=== PATIENT | female | born 1995 | race Caucasian/White ===

== ENCOUNTER 2024-11-06 12:34 | Emergency (ER) | payer SELFPAY ==
[2024-11-06 12:39] VITALS: BP 141/85; PULSE 90; TEMP 37.1; O2SAT 97; BMI 63.5
--- NOTE | 2024-11-06 14:00 | ED.GENADUL1 ---
HPI HPI - General Adult General Chief complaint: Upper Respiratory Infection Stated complaint: COUGH Time Seen by Provider: 11/06/24 12:56 Source: patient Mode of arrival: walk-in Limitations: no limitations History of Present Illness HPI narrative: cc = cough, chest congestion and ear pain About 4 days ago, the patient started to experience some nasal congestion, runny nose and cough. Over the last 12 hours she has developed bilateral ear pain with the left greater than the right as well as some chest congestion and wheezing. No history of asthma. She is a diabetic. No GI or symptoms. No fever. Related Data Previous Rx's ?Medication ?Instructions ?Recorded albuterol sulfate 90 mcg/actuation 2 inh inhalation Q6H PRN shortness 11/06/24 aerosol inhaler of breath or wheezing #6.7 grams azithromycin 250 mg tablet See Rx Instructions PO .COMPLEX #6 11/06/24 tabs fluconazole 200 mg tablet 200 mg PO ONCE #1 tab 11/06/24 (Diflucan) Allergies Allergy/AdvReac Type Severity Reaction Status Date / Time No Known Drug Allergies Allergy Verified 11/06/24 12:38 Opioid HPI Opioid Management Most Recent Opioid Data: No Data to Display PFSH PFSH Social History Little interest or pleasure in doing things: not at all Feeling down, depressed, or hopeless: not at all Exam Narrative Exam Narrative: Nurses notes and vital signs reviewed and patient is not hypoxic. afebrile General: Well-appearing and in no apparent distress. Skin: Warm, dry, no pallor noted. No rash. She has rosacea which manifest as facial redness Head: Normocephalic, atraumatic. Neck: Supple, non-tender. No cervical lymphadenopathy Eye: Pupils are equal, round and EOMI. No scleral icterus. Ears, Nose, Mouth, and Throat: TM are dull bilaterally with some erythema and injection in the left TM. no posterior oropharynx erythema or nasal mucosal hypertrophy, uvula is mid-line Oral mucosa is moist Cardiovascular: Regular Rate and Rhythm without murmur, gallop or rub. Respiratory: No accessory muscle use or respiratory distress. Lungs are clear to auscultation, no wheezing, rales or rhonchi Musculoskeletal: normal ROM Neurological: A&O x4. No cranial nerve dysfunction observed. No truncal ataxia. Moves all extremities. Sensation intact. Psychiatric: Cooperative and interactive. Normal mood and affect. Constitutional Vital Signs, click to edit/add: Last Vital Signs Temp 98.7 F 11/06/24 12:39 Pulse 90 11/06/24 12:39 Resp 20 11/06/24 12:39 BP 141/85 11/06/24 12:39 Pulse Ox 97 11/06/24 12:39 O2 Del Method Room Air 11/06/24 12:39 Course Vital Signs Vital signs: Vital Signs Temperature 98.7 F 11/06/24 12:39 Pulse Rate 90 11/06/24 12:39 Respiratory Rate 20 11/06/24 12:39 Blood Pressure 141/85 11/06/24 12:39 Pulse Oximetry 97 11/06/24 12:39 Oxygen Delivery Method Room Air 11/06/24 12:39 Temperature 98.7 F 11/06/24 12:39 Pulse Rate 90 11/06/24 12:39 Respiratory Rate 20 11/06/24 12:39 Blood Pressure 141/85 11/06/24 12:39 Pulse Oximetry 97 11/06/24 12:39 Oxygen Delivery Method Room Air 11/06/24 12:39 Medical Decision Making MDM Narrative Medical decision making narrative: Patient will be prescribed antibiotic for otitis media. I will also prescribe an MDI for her to use at home since she has subjective feeling of wheezing, despite clear lungs on examination today. She also requested a Diflucan tablet as she tends to get candidal infections after antibiotic use. Discharge Plan Discharge Chief Complaint: Upper Respiratory Infection Clinical Impression: Otitis media, Upper respiratory infection Patient Disposition: Home, Self-Care Time of Disposition Decision: 14:02 Prescriptions / Home Meds: New fluconazole [Diflucan] 200 mg tablet 200 mg PO ONCE Qty: 1 0RF azithromycin 250 mg tablet See Rx Instructions .ROUTE .COMPLEX Qty: 6 0RF Rx Instructions: For 250 mg dose pack: take 500 mg today (day 1), then 250 mg for 4 days (days 2-5) albuterol sulfate 90 mcg/actuation HFA aerosol inhaler 2 inh inhalation Q6H PRN (Reason: shortness of breath or wheezing) Qty: 6.7 0RF Print Language: Chinese Instructions: Ear Infection (ED), Upper Respiratory Infection (ED) Referrals: Physician,Non-Staff, MD [Primary Care Provider] - 1 week
== END 2024-11-06 14:13 | disposition home or self-care (01) ==
PROVIDERS: Emergency Provider Emergency Medicine
DX: H66.93 Otitis media, unspecified, bilateral (principal); R06.2 Wheezing; J06.9 Acute upper respiratory infection, unspecified; H92.03 Otalgia, bilateral; R09.89 Other specified symptoms and signs involving the circulatory and respiratory systems
CPT/HCPCS: 99283

== ENCOUNTER 2025-04-05 11:41 | Emergency (ER) | payer OTHER, SELFPAY ==
--- OUTSIDE RECORDS SUMMARY | 2020-05-15 14:26 | XMS_ITS | Continuity of Care Document ---
Author Organization [facility] Address [address] [place] [address] Phone Care Team Providers Care Associate Partner Name Role Phone Gaye GARCIA, Mercedes Unavailable [...] Diagnoses Date Provider Providers Copied on Encounter [facility], [address] [place] [address], [id number] , [place] tel: [phone] [facility] No Information 0 Missler GIRLS TENNIS COACH Mercedes. [address] [place], [place], [id number] , [place]. tel: [phone] [facility], [address] [place] [address], [id number] , [place] tel: [phone] [facility] No Information 0 Missler GIRLS TENNIS COACH Mercedes. [address] [place], [place], [id number] , [place]. tel: [phone] [facility], [address] [place] [address], [id number] , [place] tel: [phone] [facility] No Information 0 Missler GIRLS TENNIS COACH Mercedes. [address] [place], [place], [id number] , [place]. tel: [phone] OFFICE/OUTPA TIENT VISIT, [facility], [address] [place] [address], [id number] , [place] tel: [phone] [facility] Est Care (chief complaint) Body mass index (BMI) 60.0-69.9, adultPrediabetesPCOS (polycystic ovarian syndrome)Family history of anticardiolipin syndromeAnxiety disorder, unspecified type 0 Missler GIRLS TENNIS COACH Mercedes. [address] [place], [place], [id number] , [place]. tel: [phone] Family History Family Member Type Diagnosis Age [...] Covered constitution party ID Authoriza tion(s) Medicaid [facility] [id number] Social History Type Description Quantity Date Captured Comments Sex Female Smoking Status No Information Sexual Orientation Straight or heterosexual Gender Identity Female Geremias-13-2020 Chief Complaint And Reason For Visit No Information Reason For Referral Reason For Referral No Information Plan Of Treatment Date Type Action Status Goal Dietary manageme nt education, guidance, and counseling completed Future Order: Lab Order CBC With Differential/Platelet ([id number]), Ordered on: Ordered Future Order: Lab Order Comp. Me tabolic Panel (14) ([id number]), Ordered on: Ordered Future Order: Lab Order Lipid Pa lucy ([id number]), Ordered on: Ordered Future Order: Lab Order TSH+Free T4 ([id number]), Ordered on: Ordered Future Order: Lab Order Vitamin B12 ([id number]), Ordered on: Ordered Future Order: Lab Order Lupus An ticoag/Cardiolipin Ab ([id number]), Ordered on: Ordered Future Order: Lab Order Anticard iolipin Ab, IgG/M, Qn ([id number]), Ordered on: Ordered Future Order: Lab Order PT and P TT ([id number]), Ordered on: Ordered History Of Present Illness [...] was going to [facility] in [place] for mental health medications. Pt states she missed too many apts and she was discharged. 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 States it was low . Takes propranolol [...]
--- OUTSIDE RECORDS SUMMARY | 2024-12-14 11:30 | XMS_ITS ---
Author Organization [facility] Address [address] [place], [place] [address] Care Team Providers Care Core Driller Name Role Phone Tiffany Pate Primary Care Provider [phone] Maria Eugenia Jarrett [phone] REASON FOR VISIT DM & HTN Social History Sex Assigned At : Social History Observation Description Sex Assigned At Female Encounters Encounter Location Date Provider Diagnosis Main [address] [place], [place] [id number] 12/14/2024 Maria Eugenia Scott Plan Of Treatment No Information Progress Notes * Karla BURCH CDOB:1994 (29 yo F)Acc No.[id number]:12/14/2024 Patient: Joshua GARCIAKarla Provider: Adan Scott :1995 A ge:29 Y S ex:Female Date:12/14/2024 Address:[address] [place], [place] [id number] Pcp:Tiffany Pate Subjective: * Chief Complaints: * 1 . DM & HTN. * Medical History: Objective: * Vitals: Assessment: Plan: * Treatment: * Billing Information: * Visit Code: * Procedure Codes: * Electronic signature of LIANNA Wolf sa on 04/05/2025 at 11:50 AM EDT Sign off status: Pending * Provider: Adan Scott Date: 0 12/14/2024 Generated for Lacho garzon/Keily/Johnitting on: 0 04/05/2025 11:50 AM EDT
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
--- OUTSIDE RECORDS SUMMARY | 2024-12-27 05:30 | XMS_ITS ---
Author Organization [facility] vices Address [address] [place], [place] [phone] Care Team Providers Care Watch Guard Gate Name Role Phone Tiffany Pate Primary Care Provider REASON FOR VISIT Wellness Social History Sex Assigned At : Social History Observation Description Sex Assigned At Female Encounters Encounter Location Date Provider Diagnosis Main [address] [place], [place] [address] 12/27/2024 Tiffany Pate Plan Of Treatment No Information Progress Notes * Karla BURCH CDOB:1994 (29 yo F)Acc No.[id number]:12/27/2024 Progress Notes Patient: Karla WEEKS Provider: Rocío Pate MD :1995 A ge:29 Y S ex:Female Date:12/27/2024 Address:[address] [place], [place] [id number] Subjective: * Chief Complaints: * 1 . Wellness. * Medical History: Objective: * Vitals: Assessment: Plan: * Treatment: Care Plan: * Problems: * Billing Information: * Visit Code: * Procedure Codes: * Electronic signature of Gena Pate MD on 04/05/2025 at 11:50 AM EDT Sign off status: Pending * Provider: Rocío Pate MD Date: 0 12/27/2024 Generated for Printi ng/Faxing/eTransmitting on: 0 04/05/2025 11:50 AM EDT
[2025-04-05 11:49] VITALS: BP 135/89; PULSE 103; TEMP 36.8; O2SAT 96; BMI 61.8
--- OUTSIDE RECORDS SUMMARY | 2025-04-05 11:50 | XMS_ITS | Encounter Summary ---
Author Organization [employer] Address [id number] [address] [place] [address] Care Team Providers Care Kalsominer Name Role Phone Yanni Mauricio KENYA-CUPOLA CHARGER Primary Care Provider Reason for Visit * Reason Comments Med Refill Encounter Details Date Type Department Care Team (Late st Contact Info) Description 11/15/2021 Refill [facility] [address] [place] [phone] Patricia Arana PA [address] [place] [phone] Urinary tract infection without hematuria, site unspecified Social History Tobacco Use Types Packs/Day Years Used Date Smoking Tobacco: Never Smokeless Tobacco: Never Alcohol Use Standard Drinks/Week Comments Not Currently 0 (1 standard drink = 0.6 oz pur e alcohol) Childcare Answer Date Recorded Do problems getting child ca re make it difficult for you to work or study? No 09/21/2020 Employment Answer Date Recorded Do you need help finding a [facility] and/or a training program? No 09/21/2020 Purpose - Life Answer Date Recorded Purpose and direction in life Unknown Comments No Sex and Gender Information Value Date Recorded Sex Assigned at Not on file Legal Sex Female 11:50 AM EDT Gender Identity Not on file Sexual Orientation Not on file documented as of this encounter Miscellaneous Notes * Telephone Encounter - EDEL Reynolds - 11/15/2021 3:30 AM EST Due for an appointment. * Telephone Encounter - Gwen Euceda - 11/15/2021 3:30 AM EST LMOM 11/22/21 * Telephone Encounter - Gwen Euceda - 11/15/2021 3:30 AM EST LMOM 01/03/22 * Telephone Encounter - Gwen Euceda - 11/15/2021 3:30 AM EST Lmom 01/24/22 documented in this encounter Plan of Treatment Upcoming Encounters Date Type Department Care Team (Late st Contact Info) Description 04/27/2025 3:00 PM EDT Office Visit [facility] [address] [place] [phone] Yanni Mauricio APRN-CNP [address] [place] [phone] documented as of this encounter Visit Diagnoses Diagnosis Urinary tract infection without hematuria, site unspecified documented in this encounter Additional Health Concerns Infection Onset Date Last Indicated Resolved Time COVID-19 Rule-Out 05/13/2024 05/13/2024 05/13/2024 12:22 PM EDT documented as of this encounter Care Teams Kalsominer Relationship Specialty Start Date End Date Yanni Mauricio APRN-CNP [address] [place] [phone] PCP - General Family Medicine 01/23/25 documented as of this encounter
--- OUTSIDE RECORDS SUMMARY | 2025-04-05 11:50 | XMS_ITS | Clinical Summary ---
Author Organization [employer] s tem Address [id number] [address] [place] [address] Care Team Providers Care Wigs Salesperson Name Role Phone MauricioDonna pardoflower [employer]IT[employer]ING Primary Care Provider Allergies Active Allergy Reactions Criticality Noted Date Comments House Dust Mite 02/09/2023 Other reaction(s): itching, cough, rhinitis Medications * This document contains information received from the source organization and may not represent a complete record from that organization. metFORMIN (GLUCOPHAGE) 500 mg tablet Take 2 tablets (1,000 mg total) by mouth daily with breakfast. Active albuterol (PROVENTIL HFA;VENTOLIN HFA) 90 mcg/actuation inhaler Inhale 2 puffs every 6 (six) hours as needed for wheezing. Active fexofenadine (KOMAL) 180 mg tablet Take 1 tablet (180 mg total) by mouth in the morning. Active acetaminophen (TYLENOL EXTRA STRENGTH) 500 mg tablet Take 2 tablets (1,000 mg total) by mouth every 6 (six) hours as needed for pain. 30 tablet 2022 Active ondansetron ODT (ZOFRAN ODT) 4 mg disintegrating tablet Dissolve 1 tablet (4 mg total) on tongue every 8 (eight) hours as needed for nausea for up to 10 doses. 10 tablet 2023 Active cholecalciferol 1,000 units tablet Take 1 tablet (1,000 Units total) by mouth in the morning. Active propranolol XL (INNOPRAN XL) 120 MG 24 hr capsule Take 1 capsule (120 mg total) by mouth in the morning. Active hydroxychloroquin e (PLAQUENIL) 200 mg tablet Take 2 tablets (400 mg total) by mouth in the morning. 2024 Active buPROPion XL (WELLBUTRIN XL) 150 mg 24 hr tabletIndications :anxiety with depression Take 1 tablet (150 mg total) by mouth in the morning. Indications: anxiousness associated with depression. 90 tablet 3 2024 Active busPIRone (BUSPAR) 30 mg tabletIndications :generalized anxiety disorder Indications: repeated episodes of anxiety. Take 1 tablet by mouth in the morning. Take 1 tablet by mouth in the evening. 180 tablet 3 2024 Active FLUoxetine (PROzac) 40 mg capsuleIndication s:Mild episode of recurrent major depressive disorder,Generali zed anxiety disorder Take 2 capsules (80 mg total) by mouth in the morning. 180 capsule 3 2024 Active sucralfate (CARAFATE) 1 gram tablet Take 1 tablet (1 g total) by mouth in the morning and 1 tablet (1 g total) before bedtime. Active ubrogepant (UBRELVY) 100 mg tabletIndications :Migraine without aura and without status migrainosus, not intractable Take 100 mg by mouth as needed (migraines). 15 tablet 1 2024 Active atogepant (QULIPTA) 60 mg tabletIndications :Migraine without aura and without status migrainosus, not intractable Take 60 mg by mouth in the morning. 90 tablet 1 2024 Active pantoprazole (PROTONIX) 40 mg EC tabletIndications :gastroesophageal reflux disease Take 1 tablet (40 mg total) by mouth in the morning. Indications: gastroesophageal reflux disease. 90 tablet 1 2024 Active ALPRAZolam (XANAX) 0.5 mg tabletIndications :Generalized anxiety disorder Take 1 tablet (0.5 mg total) by mouth daily as needed for anxiety. 30 tablet 2024 Active dulaglutide (TRULICITY) 0.75 mg/0.5 mL pen injectorIndicatio ns:Elevated blood pressure reading,Type 2 diabetes mellitus with hyperosmolarity without coma, without long-term current use of insulin ([facility]),PCOS (polycystic ovarian syndrome),Menorrh agia with irregular cycle Inject 0.5 mL (0.75 mg total) under the skin every 7 days. 2 mL 2024 Active methylphenidate HCl (CONCERTA) 18 mg CR tabletIndications :Attention deficit hyperactivity disorder (ADHD), predominantly inattentive type Take 1 tablet (18 mg total) by mouth daily. Max Daily Amount: 18 mg 30 tablet 2024 Active cyanocobalamin 1000 MCG tablet TAKE 1 TABLET BY MOUTH IN THE MORNING 90 tablet 1 2024 Active cyanocobalamin (vitamin B-12) 1000 MCG tablet Take 1 tablet (1,000 mcg total) by mouth in the morning. 30 tablet 2 03/12 Discontinued methylphenidate HCl (JORNAY PM) 20 mg capsule,del rel,ext rel sprinkIndications :Attention deficit hyperactivity disorder (ADHD), predominantly inattentive type Take 1 capsule by mouth nightly. Max Daily Amount: 1 capsule 30 each 03/10 Discontinued Active Problems Problem Noted Date Diagnosed Date Bilateral carpal tunnel syndrome 01/23/2025 PCOS (polycystic ovarian syndrome) 01/23/2025 Menorrhagia with irregular cycle 01/23/2025 Attention deficit hyperactiv ity disorder (ADHD), predominantly inattentive type 08/05/2024 Gastroesophageal reflux disease without esophagi tis 02/09/2023 Mild episode of recurrent major depressive disor maryam 12/29/2022 Generalized anxiety disorder 12/29/2022 Pneumonia due to COVID-19 virus 09/21/2020 Morbid obesity 09/21/2020 Encounters * This document contains information received from the source organization and may not represent a complete record from that organization. Date Type Department Care Team Description 03/12/2025 Refill [facility] [address] [place] [address] [phone] Yanni Mauricio APRN-CNP 03/08/2025 10:00 AM EDT Office Visit [facility] Department [address] [phone] Alicia Singh APRN-CNP Gallbladder sludge (Primary Dx); Gastroesophageal reflux disease without esophagitis; Epigastric pain; Heartburn; Alternating constipation and diarrhea 03/08/2025 Telephone [facility] Department of [facility] [address] [facility] [address] [place] [address] Nesha Guerrero CNA 03/08/2025 Travel 03/01/2025 Travel 02/28/2025 Refill [facility] [address] [place] [address] [phone] Renetta Siu CNA Elevated blood pressure reading; Type 2 diabetes mellitus with hyperosmolarity without coma, without long-term current use of insulin ([facility]); PCOS (polycystic ovarian syndrome); Menorrhagia with irregular cycle 02/21/2025 Orders Only [facility] [address] [place] [address] [phone] Yanni Mauricio APRN-RITESH Elevated blood pressure reading (Primary Dx); Type 2 diabetes mellitus with hyperosmolarity without coma, without long-term current use of insulin ([facility]); PCOS (polycystic ovarian syndrome); Menorrhagia with irregular cycle 02/21/2025 Telephone [facility] [address] [place] [address] [phone] Stephanie Rowley CMA 02/16/2025 8:20 AM EDT Telemedicine [facility] [address] [place] [address] [phone] Yanni Mauricio APRN-AIR SAMPLING AND MONITORING Elevated blood pressure reading (Primary Dx); Type 2 diabetes mellitus with hyperosmolarity without coma, without long-term current use of insulin ([facility]) 02/15/2025 Travel 02/07/2025 Orders Only [facility] [address] [place] [phone] Yanni Mauricio APRN-CNP 02/07/2025 Telephone [facility] [address] [place] [phone] Stephanie Rowley CMA 02/04/2025 8:38 PM EDT - 02/04/2025 11:20 PM EDT Emergency [facility] [address] [place] [phone] Dawn Plummer DO Acute cystitis without hematuria (Primary Dx) Discharge Disposition: Home 02/04/2025 Travel 01/27/2025 Travel 01/23/2025 2:00 PM EDT Office Visit [facility] [address] [place] [phone] Yanni Mauricio APRN-CNP Gastroesophageal reflux disease without esophagitis (Primary Dx); Bilateral carpal tunnel syndrome; Menorrhagia with irregular cycle; PCOS (polycystic ovarian syndrome); Healthcare maintenance; Encounter for initial prescription of injectable contraceptive; Migraine without aura and without status migrainosus, not intractable; Encounter for lipid screening for cardiovascular disease; Generalized anxiety disorder; Diabetes mellitus due to underlying condition with hyperosmolarity without coma, without long-term current use of insulin ([facility]); Chronic fatigue; Hx of iron deficiency anemia; Encounter to establish care 01/22/2025 Travel 01/18/2025 Travel from Last 3 Months Immunizations Immunization Administration Dates Next Due Influenza, Injectable, quadrivalent (PF) 021 Family History Medical History Relation Name Comments Anxiety disorder Cousin Bipolar disorder Cousin Depression Cousin Depression Maternal Aunt 1 Adilia Slane Early Maternal Aunt 1 Adilia Slane Early Maternal Aunt 2 Allyson Prasanth Fibromyalgia Maternal Aunt 3 Rheum arthritis Maternal Aunt 3 Early Maternal Grandfather Elvis Garciadank Pancreatic cancer Maternal Grandfather Elvis Garciadank Brain cancer Maternal Grandmother [place] Garc[place] Early Maternal Grandmother [place] Lung cancer Maternal Grandmother [place] Garc[place] Clotting disorder Maternal Uncle Madhav Garciaiarz Depression Maternal Uncle Madhav Marshgerry Anxiety disorder Mother Meagan Guanica Arthritis Mother Meagan Guanica Clotting disorder Mother Meagan Guanica Depression Mother Meagan Guanica Diabetes Mother Meagan Guanica Diabetes type II Mother Meagan Soto Heart disease Mother Meagan Guanica Heart failure Mother Meagan [place] Hypertension Mother Meagan [place] Kidney disease Mother Meagan Guanica Rheum arthritis Mother Meagan Guanica Diabetes Paternal Grandfather Kunal Ronquillolter Diabetes type II Paternal Grandfather Kunal Danaer Brain cancer Paternal Grandmother Relation Name Status Comments Cousin Maternal Aunt 1 Adilia Ortiz Alive Maternal Aunt 2 Allyson Rader Alive Maternal Aunt 3 Alive Maternal Grandfather Elvis Rader Alive Maternal Grandmother [place] Rader Alive Maternal Uncle Madhav Rader Alive Mother Meagan Valera Alive Paternal Grandfather Kunal Nicolas Alive Paternal Grandmother Social History Tobacco Use Types Packs/Day Years Used Date Smoking Tobacco: Never Smokeless Tobacco: Never Tobacco Cessation:Counseling Given: Not Answered Alcohol Use Standard Drinks/Week Comments Not Currently 0 (1 standard drink = 0.6 oz pur e alcohol) Overall Financial Resource Strain (CARDIA) Answe r Date Recorded How hard is it for you to pa y for the very basics like food, housing, medical care, and heating? Somewhat hard 01/23/2025 PHQ-2 Answer Date Recorded Total Score 0 01/23/2025 PRAPARE - Transportation Answer Date Re corded In the past 12 months, has l ack of transportation kept you from medical appointments or from getting medications? Yes 01/12 In the past 12 months, has l ack of transportation kept you from meetings, work, or from getting things needed for daily living? Yes 01/23/2025 Housing Instability Answer Date Recorde d Are you worried or concerned that in the next two months you may not have stable housing that you own, rent or stay in as a part of a household? No 01/23/2025 Childcare Answer Date Recorded Do problems getting child ca re make it difficult for you to work or study? No 09/21/2020 Employment Answer Date Recorded Do you need help finding a [facility] career center and/or a training program? No 09/21/2020 Hunger Screening Answer Date Recorded Within the past 12 months we worried whether our food would run out before we got money to buy more. Never True 02/16/2025 Within the past 12 months th e food we bought just didn't last and we didn't have money to get more. Never True 02/16/2025 Purpose - Life Answer Date Recorded Purpose and direction in life Unknown Education Answer Date Recorded What is the highest level of school you have completed or the highest degree you have received? 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 Not on file Not on file Last Filed Vital Signs Vital Sign Reading Time Taken Comments Blood Pressure 112/78 03/08/2025 10:20 AM EDT Pulse 72 03/08/2025 10:20 AM EDT Temperature 36.9 C (98.5 F) 02/04/2025 8:43 PM EDT Respiratory Rate 18 02/04/2025 10:0 5 PM EDT Oxygen Saturation 95% 02/04/2025 10: 45 PM EDT Inhaled Oxygen Concentration - - Weight 168.6 kg (371 lb 12.8 oz) 2024 10:20 AM EDT Height 162.6 cm (5' 4.02 ) 03/08/2025 1 0:20 AM EDT Body Mass Index 63.79 03/08/2025 10:20 AM EDT Plan of Treatment Upcoming Encounters Date Type Department Care Team (Late st Contact Info) Description 04/27/2025 3:00 PM EDT Office Visit [facility] [address] [place] [phone] Yanni Mauricio APRN-RITESH [address] [place] [address], [place] [phone] Health Maintenance Due Date Last Done Comments Diabetic Ophthalmology Exam 1994 DTaP,Tdap and Td Vaccines (5 - Tdap) 2005 10/10/1997, 02/19/1995, 1994, Additional history exists Adult BMI Follow Up Plan 2012 Diabetic Foot Exam 2012 Pap Smear 2015 COVID-19 Vaccine (2023-2 5 season) 2024 06/05/2022, 07/04/2021, 12/26/2020, Additional history exists Influenza Vaccine 05/15/2025 10/24/2024, , 07/04/2021, Additional history exists Depression Screening 01/23/2026 01/23/2025 Adult BMI Screening 03/08/2026 03/08/2025 Tobacco Screening 03/08/2026 03/08/2025 Medical Devices Not on file Procedures Procedure Name Priority Date/Time Associated Diagnosis Comments CT ABDOMEN AND PELVIS WO CONT STAT 02/04/2025 10:33 PM EDT POCT , URINE (NUCG) Routine 02/04/2025 10:07 PM EDT POCT NURSING URINE MACROSCOPIC UA Routine 02/04/2025 9:56 PM EDT ER EXTRA URINE CULTURE STAT 02/04/2025 9:48 PM EDT ER EXTRA URINE STAT 02/04/2025 9:48 PM EDT EXTRA TUBES BLUE TOP Routine 02/04/2025 9:00 PM EDT EXTRA TUBES Routine 02/04/2025 9:00 PM EDT BASIC METABOLIC PANEL STAT 02/04/2025 8:56 PM EDT CBC WITH AUTO DIFFERENTIAL STAT 02/04/2025 8:56 PM EDT VITAMIN D 25 HYDROXY Routine 01/27/2025 11:00 AM EDT Healthcare maintenance Generalized anxiety disorder Chronic fatigue VITAMIN B12 Routine 01/27/2025 11:00 AM EDT Healthcare maintenance Generalized anxiety disorder Chronic fatigue IRON AND TIBC Routine 01/27/2025 11:00 AM EDT Healthcare maintenance Chronic fatigue Hx of iron deficiency anemia CBC WITH AUTO DIFFERENTIAL Routine 01/27/2025 11:00 AM EDT Healthcare maintenance Chronic fatigue Hx of iron deficiency anemia HEMOGLOBIN A1C Routine 01/27/2025 11:00 AM EDT Healthcare maintenance Diabetes mellitus due to underlying condition with hyperosmolarity without coma, without long-term current use of insulin ([facility]) TSH WITH REFLEX Routine 01/27/2025 11:00 AM EDT Healthcare maintenance Diabetes mellitus due to underlying condition with hyperosmolarity without coma, without long-term current use of insulin ([facility]) COMPREHENSIVE METABOLIC PANEL Routine 01/27/2025 11:00 AM EDT Healthcare maintenance Diabetes mellitus due to underlying condition with hyperosmolarity without coma, without long-term current use of insulin ([facility]) LIPID PROFILE Routine 01/27/2025 11:00 AM EDT Healthcare maintenance Encounter for lipid screening for cardiovascular disease from Last 3 Months Results * CT abdomen and pelvis without contrast (02/04/2025 10:33 PM EDT) Anatomical Region Laterality Modality Body, Abdomen, Body Covera N/A Compu kalyan Tomography 02/04/2025 10:4 9 PM EDT Narrative 02/04/2025 10:[address] ABDOMEN AND PELVIS WITHOUT IV CONTRAST HISTORY: Left-sided flank pain, stone. COMPARISON STUDY: CT 05/13/2024. TECHNIQUE: CT scan of the abdomen and pelvis performed without IV or PO contrast. Coronal and sagittal reformats generated and reviewed. FINDINGS: Solid visceral organs limited in evaluation secondary to lack of IV contrast. LOWER THORAX: Unremarkable. HEPATOBILIARY: No focal hepatic lesions. No biliary ductal dilatation. Diffuse high density fills the gallbladder lumen possibly diffuse sludge, no discrete stone, no wall thickening, no adjacent fluid. SPLEEN: Unremarkable. PANCREAS: No focal masses or ductal dilatation. ADRENALS: No adrenal nodules. KIDNEYS/URETERS: Punctate renal stones bilaterally no obstruction. No suspicious renal mass. GI TRACT: No bowel obstruction. Appendix is normal. PELVIC ORGANS/BLADDER: Unremarkable. PERITONEUM/RETROPERITONEUM: No free air or fluid. LYMPH NODES: No enlarged lymph nodes. VESSELS: No abdominal aortic aneurysm. BONES AND SOFT TISSUES: No suspicious osseous lesion. IMPRESSION: 1. Punctate renal stones, no obstruction. 2. Diffuse high density fills the gallbladder lumen possibly diffuse sludge, no discrete stone, no wall thickening, no adjacent fluid. Consider right upper quadrant ultrasound correlation All CT scans at this facility use dose modulation, iterative reconstruction, and/or weight based dosing when appropriate to reduce radiation dose to as low as reasonably achievable. Finalized by Jose Dugan MD on 02/04/2025 10:57 PM Procedure Note Jose Dugan MD - 02/04/2025 CT ABDOMEN AND PELVIS WITHOUT IV CONTRAST HISTORY: Left-sided flank pain, stone. COMPARISON STUDY: CT 05/13/2024. TECHNIQUE: CT scan of the abdomen and pelvis performed without IV or POcontrast. Coronal and sagittal reformats generated and reviewed. FINDINGS: Solid visceral organs limited in evaluation secondary to lack of IVcontrast. LOWER THORAX: Unremarkable. HEPATOBILIARY: No focal hepatic lesions. No biliary ductal dilatation.Diffuse high density fills the gallbladder lumen possibly diffuse sludge,no discrete stone, no wall thickening, no adjacent fluid. SPLEEN: Unremarkable. PANCREAS: No focal masses or ductal dilatation. ADRENALS: No adrenal nodules. KIDNEYS/URETERS: Punctate renal stones bilaterally no obstruction. Nosuspicious renal mass. GI TRACT: No bowel obstruction. Appendix is normal. PELVIC ORGANS/BLADDER: Unremarkable. PERITONEUM/RETROPERITONEUM: No free air or fluid. LYMPH NODES: No enlarged lymph nodes. VESSELS: No abdominal aortic aneurysm. BONES AND SOFT TISSUES: No suspicious osseous lesion. IMPRESSION: 1. Punctate renal stones, no obstruction. 2. Diffuse high density fills the gallbladder lumen possibly diffusesludge, no discrete stone, no wall thickening, no adjacent fluid. Considerright upper quadrant ultrasound correlation All CT scans at this facility use dose modulation, iterativereconstruction, and/or weight based dosing when appropriate to reduceradiation dose to as low as reasonably achievable. Finalized by Jose Dugan MD on 02/04/2025 10:57 PM us Dawn Plummer DO IMG CT ORDERABLES Final Resu lt * POCT , urine (02/04/2025 10:07 PM EDT) POC Urine Negative Negative 02/04/2025 10:07 PM EDT [facility] Urine 02/04/2025 10:0 7 PM EDT 02/04/2025 10:07 PM EDT us Dawn Plummer DO POINT OF CARE TEST ORDERABLE S Final Result [facility] [address] [place] [address], [place] * (ABNORMAL) POCT Nursing Urine Macroscopic UA (02/04/2025 9:56 PM EDT) Pathologist [facility] POC Urine Specific [place] 1.015 1.010, 1.015, 1.020, 1.025 02/04/2025 9:52 PM EDT [facility] POC Urine Leukocyte Esterase Negative Negative 02/04/2025 9:52 PM EDT [facility] POC Urine Nitrite Positive(A) Negative 02/04/2025 9:52 PM EDT [facility] POC Urine pH 6.5 5.0, 6.0, 6.5, 7.0, 7.5, 8.0, 8.5, 5.5 02/04/2025 9:52 PM EDT [facility] POC Urine Protein Negative Negative 02/04/2025 9:52 PM EDT [facility] POC Urine Glucose Negative Negative 02/04/2025 9:52 PM EDT [facility] P[facility] Urine Ketones Negative Negative 02/04/2025 9:52 PM EDT [facility] POC Urine Urobilinogen 0.2 E.U./dL 02/04/2025 9:52 PM EDT [facility] POC Urine Bilirubin Negative Negative 02/04/2025 9:52 PM EDT [facility] POC Urine Blood/HGB Large(A) Negative 02/04/2025 9:52 PM EDT [facility] Urine 02/04/2025 9:56 PM EDT 02/04/2025 9:52 PM EDT us Dawn Chambersman DO POINT OF CARE TEST ORDERABLE S Final Result Performing Organization Address City/[facility]/ZIP Co de Phone Number [address] [place] [address], [place] * Extra Urine Culture (02/04/2025 9:48 PM EDT) Extra Tube Auto Resulted 02/04/2025 11:01 PM EDT [facility] Urine Urine specimen collection, clean catch / Unknown 02/04/2025 9:48 PM EDT 02/04/2025 9:56 PM EDT April Augustine MARKETING SUPPORT COORDINATOR-AIR SAMPLING AND MONITORING URINE ORDERABLES Final Res ult Performing Organization Address City/[facility]/ZIP Co de Phone Number [address] [place] [address], [place] * Extra Urine (02/04/2025 9:48 PM EDT) Extra Tube Auto Resulted 02/04/2025 11:01 PM EDT [facility] Urine Urine specimen collection, clean catch / Unknown 02/04/2025 9:48 PM EDT 02/04/2025 10:14 PM EDT April Augustine MARKETING SUPPORT COORDINATOR-AIR SAMPLING AND MONITORING URINE ORDERABLES Final Res ult Performing Organization Address City/[facility]/ZIP Co de Phone Number [address] [place] [address], [place] * Light Blue Top (02/04/2025 9:00 PM EDT) Extra Tube Auto Resulted 02/04/2025 10:01 PM EDT [facility] Blood Venous blood / Unknown Venipuncture / Unknown 02/04/2025 9:00 PM EDT 02/04/2025 9:11 PM EDT us Dawn Plummer DO LAB BLOOD ORDERABLES Final R esult [facility] [address] [place] [address], [place] * (ABNORMAL) CBC auto differential (02/04/2025 8:56 PM EDT) Only the most recent of2 resultswithin the time period is included. WBC 11.2(H) 4 - 11 x10E9/L 02/04/2025 9:23 PM EDT [facility] RBC Count 5.22(H) 3.8 - 5.2 X10E12/L 02/04/2025 9:23 PM EDT [facility] Hemoglobin 13.2 11.7 - 15.5 g/dL 02/04/2025 9:23 PM EDT [facility] Hematocrit 39.8 35 - 47 % 02/04/2025 9:23 PM EDT [facility] MCV 76(L) 80 - 100 fL 02/04/2025 9:23 PM EDT [facility] MCH 25.2(L) 27 - 34 pg 02/04/2025 9:23 PM EDT [facility] MCHC 33.1 32 - 36 g/dL 02/04/2025 9:23 PM EDT [facility] RDW 15.9(H) 11.5 - 15 % 02/04/2025 9:23 PM EDT [facility] Platelet Count 322 150 - 450 X10E9/L 02/04/2025 9:23 PM EDT [facility] MPV 8.4 7 - 12 fL 02/04/2025 9:23 PM EDT [facility] Neutrophils % 79.7 % 02/04/2025 9:23 PM EDT [facility] Lymphocytes % 14.6 % 02/04/2025 9:23 PM EDT [facility] Monocytes % 4.3 % 02/04/2025 9:23 PM EDT [facility] Eosinophils % 0.9 % 02/04/2025 9:23 PM EDT [facility] Basophils % 0.5 % 02/04/2025 9:23 PM EDT [facility] Neutrophils Absolute (A) 9.0(H) 1.5 - 6.6 10*3/uL 02/04/2025 9:23 PM EDT [facility] Lymphocytes Absolute 1.6 1.0 - 3.5 10*3/uL 02/04/2025 9:23 PM EDT [facility] Monocytes Absolute 0.5 0.0 - 0.9 10*3/uL 02/04/2025 9:23 PM EDT [facility] Eosinophils Absolute 0.1 0.0 - 0.4 10*3/uL 02/04/2025 9:23 PM EDT [facility] Basophils Absolute 0.1 0.0 - 0.2 10*3/uL 02/04/2025 9:23 PM EDT [facility] Differential Type AUTOMATED DIFFERENTIAL 02/04/2025 9:23 PM EDT [facility] Blood Venous blood / Unknown Venipuncture / Unknown 02/04/2025 8:56 PM EDT 02/04/2025 9:11 PM EDT us Dawn Plummer DO LAB BLOOD ORDERABLES Final R esult [facility] [address] [place] [address], [place] * (ABNORMAL) Basic Metabolic Panel (02/04/2025 8:56 PM EDT) SODIUM 137 134 - 146 mmol/L 02/04/2025 9:28 PM EDT [facility] POTASSIUM 3.6 3.5 - 5.0 mmol/L 02/04/2025 9:28 PM EDT [facility] CHLORIDE 109 98 - 109 mmol/L 02/04/2025 9:28 PM EDT [facility] CARBON DIOXIDE 22 22 - 32 mmol/L 02/04/2025 9:28 PM EDT [facility] ANION GAP 6 5 - 15 mmol/L 02/04/2025 9:28 PM EDT [facility] BLOOD UREA NITROGEN 10 5 - 23 mg/dL 02/04/2025 9:28 PM EDT [facility] CREATININE 0.90 0.40 - 1.00 mg/dL 02/04/2025 9:28 PM EDT [facility] Comment:METHOD TRACEABLE TO IDMS STANDARD GLUCOSE 141(H) 65 - 99 mg/dL 02/04/2025 9:28 PM EDT [facility] CALCIUM 8.6 8.5 - 10.5 mg/dL 02/04/2025 9:28 PM EDT [facility] EGFR Non-Race Dependent 88 >=60 ml/min/1.7 3sq.m 02/04/2025 9:28 PM EDT [facility] Comment: eGFR not reported due to non-numeric value for Creatinine. Reported eGFR is based on the CKD-EPI 2020 equation that does not use a race coefficient. Blood Venous blood / Unknown Venipuncture / Unknown 02/04/2025 8:56 PM EDT 02/04/2025 9:11 PM EDT us Dawn Plummer DO LAB BLOOD ORDERABLES Final R esult [facility] [address] [place] [address], * TSH with Reflex (01/27/2025 11:00 AM EDT) TSH 1.85 0.49 - 4.67 uIU/mL 01/27/2025 1:45 PM EDT [facility] Blood Venous blood / Unknown Venipuncture / Unknown 01/27/2025 11:00 AM EDT 01/27/2025 11:01 AM EDT us Yanni Mauricio MARKETING SUPPORT COORDINATOR-[facility] LAB BLOOD ORDERABLES Fi nal Result [facility] [address] [place] [address], [place] [phone] * (ABNORMAL) Iron and TIBC (01/27/2025 11:00 AM EDT) IRON 49(L) 50 - 170 ug/dL 01/27/2025 1:34 PM EDT [facility] TRANSFERRIN 245 168 - 336 mg/dL 01/27/2025 1:34 PM EDT [facility] IRON BINDING 343 250 - 425 ug/dL 01/27/2025 1:34 PM EDT [facility] IRON SATURATION 14(L) 15 - 50 % SATURATION 01/27/2025 1:34 PM EDT [facility] Blood Venous blood / Unknown Venipuncture / Unknown 01/27/2025 11:00 AM EDT 01/27/2025 11:01 AM EDT Yanni Augustejas MARKETING SUPPORT COORDINATOR-[facility] LAB BLOOD ORDERABLES Fi nal Result [facility] [address] [place] [address], [place] [phone] * (ABNORMAL) Vitamin D 25 hydroxy (01/27/2025 11:00 AM EDT) VITAMIN D 25 HYD TOT 20.7(L) 30.0 - 100.0 ng/mL 01/27/2025 2:00 PM EDT [facility] Blood Venous blood / Unknown Venipuncture / Unknown 01/27/2025 11:00 AM EDT 01/27/2025 11:01 AM EDT Narrative [facility] - 01/27/2025 2:00 PM EDT Vitamin D status 25 [place] Vitamin D Deficiency <20 ng/mL Insufficiency 20-29 ng/mL Sufficiency 30-100 ng/mL Toxicity >100 ng/mL NOTE: A pediatric reference range has not been established by the curtain cutter of this kit. The [place] [employer] recommends a Vitamin D level of = or >20ng/mL in infants and children. Yanni Mauricio [facility] LAB BLOOD ORDERABLES nal Result Performing Organization Address City/[facility]/ZIP Co de Phone Number [facility] [address] [place] [address], * (ABNORMAL) Hemoglobin A1c (01/27/2025 11:00 AM EDT) Pathologist [facility] HEMOGLOBIN A1C 7.0(H) 4.4 - 5.6 % 01/27/2025 3:54 PM EDT [facility] Comment: ADA Guidelines Result HgbA1c Normal : less than 5.7 % Prediabetes : 5.7 % to 6.4 % Diabetes : > 6.4 % Use with caution in patients with abnormal hemoglobin variants as the half-life of red blood cells and in vivo glycation rates are affected. EST. AVERAGE GLUCOSE 154 mg/dL 01/27/2025 3:54 PM EDT [facility] Blood Venous blood / Unknown Venipuncture / Unknown 01/27/2025 11:00 AM EDT 01/27/2025 11:01 AM EDT [facility] LAB BLOOD ORDERABLES Fi nal Result Performing Organization Address City/[facility]/ZIP Co de Phone Number [facility] [address] [place] [address], [place] [phone] * Vitamin B12 (01/27/2025 11:00 AM EDT) VITAMIN B12 190 180 - 914 pg/mL 01/27/2025 1:57 PM EDT [facility] Blood Venous blood / Unknown Venipuncture / Unknown 01/27/2025 11:00 AM EDT 01/27/2025 11:01 AM EDT Yanni Mauricio MARKETING SUPPORT COORDINATOR-[facility] LAB BLOOD ORDERABLES Fi nal Result [facility] [address] [place] [address], * (ABNORMAL) Lipid panel (01/27/2025 11:00 AM EDT) CHOLESTEROL 139(L) 150 - 200 mg/dL 01/27/2025 1:34 PM EDT [facility] TRIGLYCERIDE 75 27 - 150 mg/dL 01/27/2025 1:34 PM EDT [facility] HDL CHOLESTEROL 31(L) >39 mg/dL 1:34 PM EDT [facility] Comment: HDL <40 mg/dL - High Risk HDL > or = 40mg/dL- Desirable HDL >60 mg/dL - Negative Risk LDL (CALC) 93 <130 mg/dL 01/27/2025 1:34 PM EDT [facility] Comment: LDL <100 mg/dL - Desirable LDL >160 mg/dL - High Risk CHOLESTEROL:HDL 4.5 1.0 - 5.0 1:34 PM EDT [facility] VERY LOW LIPOPROTEIN 15 0 - 30 mg/dL 01/27/2025 1:34 PM EDT [facility] Blood Venous blood / Unknown Venipuncture / Unknown 01/27/2025 11:00 AM EDT 01/27/2025 11:01 AM EDT Yanni Mauricio MARKETING SUPPORT COORDINATOR-[facility] LAB BLOOD ORDERABLES Fi nal Result [facility] [address] [place] [phone], * (ABNORMAL) Comprehensive metabolic panel (01/27/2025 11:00 AM EDT) SODIUM 142 134 - 146 mmol/L 01/27/2025 1:34 PM EDT [facility] POTASSIUM 4.0 3.5 - 5.0 mmol/L 01/27/2025 1:34 PM EDT [facility] CHLORIDE 109 98 - 109 mmol/L 01/27/2025 1:34 PM EDT [facility] CARBON DIOXIDE 24 22 - 32 mmol/L 01/27/2025 1:34 PM EDT [facility] ANION GAP 9 5 - 15 mmol/L 01/27/2025 1:34 PM EDT [facility] BLOOD UREA NITROGEN 8 5 - 23 mg/dL 01/27/2025 1:34 PM EDT [facility] CREATININE 0.77 0.40 - 1.00 mg/dL 01/27/2025 1:34 PM EDT [facility] Comment:METHOD TRACEABLE TO IDMS STANDARD GLUCOSE 144(H) 65 - 99 mg/dL 01/27/2025 1:34 PM EDT [facility] CALCIUM 9.0 8.5 - 10.5 mg/dL 01/27/2025 1:34 PM EDT [facility] TOTAL PROTEIN 6.8 6.0 - 8.0 g/dL 01/27/2025 1:34 PM EDT [facility] ALBUMIN 3.9 3.2 - 5.3 g/dL 01/27/2025 1:34 PM EDT [facility] ALKALINE PHOSPHATASE 71 39 - 130 U/L 01/27/2025 1:34 PM EDT [facility] AST 12 <=41 U/L 01/27/2025 1:34 PM EDT [facility] ALT 11 <=31 U/L 01/27/2025 1:34 PM EDT [facility] BILIRUBIN,TOTAL 0.4 0.3 - 1.2 mg/dL 01/27/2025 1:34 PM EDT [facility] EGFR Non-Race Dependent >90 >=60 ml/min/1.7 3sq.m 01/27/2025 1:34 PM EDT [facility] Comment: Reported eGFR is based on the CKD-EPI 2020 equation that does not use a race coefficient. Blood Venous blood / Unknown Venipuncture / Unknown 01/27/2025 11:00 AM EDT 01/27/2025 11:01 AM EDT Yanni Mauricio MARKETING SUPPORT COORDINATOR-[facility] LAB BLOOD ORDERABLES Fi nal Result [facility] [address] [place] [address], from Last 3 Months Insurance [employer] Advance Directives * Full Code (Latest Code Status on File) Date Activated Date Inactivated Comments 09/21/2020 9:29 PM 09/26/2020 5:08 PM Care Teams Wigs Salesperson Relationship Specialty Start Date End Date Yanni Mauricio APRN-RITESH [address] [place] [phone] PCP - General Family Medicine 01/23/25
--- OUTSIDE RECORDS SUMMARY | 2025-04-05 11:50 | XMS_ITS | Encounter Summary ---
Author Organization [employer] Address [id number] [address] [place] [address] Care Team Providers Care Chemist Pharmaceutical Name Role Phone Yanni Mauricio APRN-SLAG EXPANDER Primary Care Provider Reason for Visit * Reason Comments Med Refill Encounter Details Date Type Department Care Team (Late Contact Info) Description 07/01/2022 Refill [facility] [address] [place] [phone] Kemi Daniels PA [address] [place] [phone] Urinary tract infection without hematuria, site unspecified [...] Recorded Do you need help finding a [employer] career center and/or a training program? No 09/21/2020 Purpose - Life Answer Date Recorded Purpose and direction in life Unknown Comments No Sex and Gender Information Value Date Recorded Sex Assigned at Not on file Legal Sex Female 11:50 AM EDT Gender Identity Not on file Sexual Orientation Not on file documented as of this encounter Plan of Treatment Upcoming Encounters Date Type Department Care Team ([facility] Contact Info) Description 04/27/2025 3:00 PM EDT Office Visit [facility] [address] [place] [phone] Yanni Mauricio APRN-CNP [address] [place] [phone] documented as of this encounter Visit Diagnoses Diagnosis Urinary tract infection without hematuria, site unspecified documented in this encounter Additional Health Concerns Infection Onset Date Last Indicated Resolved Time COVID-19 Rule-Out 05/13/2024 05/13/2024 05/13/2024 12:22 PM EDT documented as of this encounter Care Teams Chemist Pharmaceutical Relationship Specialty Start Date End Date Yanni Mauricio APRN-CNP [address] [place] [phone] PCP - General Family Medicine 01/23/25 documented as of this encounter
--- OUTSIDE RECORDS SUMMARY | 2025-04-05 11:50 | XMS_ITS | Clinical Summary ---
Author Organization [facility] Address [address] [address] Care Team Providers Care Lumber Straightener Name Role Phone Scott Dalton MD Primary Care Provider [phone] Allergies Active Allergy Reactions Criticality Noted Date Comments House Dust Mite 02/09/2023 Other reaction(s): itching, cough, rhinitis Medications acetaminophen (Tylenol) 500 mg tablet Take 1,000 mg by mouth every 6 (six) hours if needed. 3 Active rizatriptan (Maxalt) 10 mg tablet Take 10 mg by mouth. Active ibuprofen 600 mg tablet 3 Active albuterol 90 mcg/actuation inhaler Inhale 2 puffs every 6 (six) hours if needed. Active ketoconazole (NIZOral) 2 % shampoo WASH SCALP AND FACE 3 TIMES A WEEK. LEAVE ON FOR 4-5 MINUTES THEN RINSE 3 Active fexofenadine (Delilah) 180 mg tablet Take 180 mg by mouth in the morning. Active dulaglutide (Trulicity) 1.5 mg/0.5 mL pen injector Inject 1.5 mg under the skin once a week. Active metFORMIN (Glucophage) 500 mg tablet Take 1,000 mg by mouth. Active propranolol LA (Inderal LA) 120 mg 24 hr capsule Take by mouth in the morning. 3 Active ALPRAZolam (Xanax) 0.5 mg tablet Take 0.5 mg by mouth if needed in the morning and at bedtime. 3 Active buPROPion XL (Wellbutrin XL) 150 mg 24 hr tablet Take 150 mg by mouth in the morning. 3 Active busPIRone (Buspar) 30 mg tablet Take 30 mg by mouth twice a day. 3 Active FLUoxetine (PROzac) 20 mg tablet Take 40 mg by mouth in the morning. 3 Active fluticasone (Flonase Allergy Relief) 50 mcg/actuation nasal spray 1 (one) time each day at the same time. Active montelukast (Singulair) 10 mg tablet 1 (one) time each day at the same time. Active calcium 500 mg calcium (1,250 mg) tablet 1 (one) time each day at the same time. Active dicyclomine (Bentyl) 20 mg tablet Take 20 mg by mouth in the morning and at bedtime. 3 Active doxycycline (Vibramycin) 100 mg capsule TAKE 1 CAPSULE BY MOUTH EVERY DAY WITH FOOD AND FULL GLASS OF WATER 3 Active Simpesse 0.15 mg-30 mcg (84)/10 mcg (7) tablets,dose pack,3 month tablet 3 Active sulfacetamide suspension (Klaron) 10 % suspension topical APPLY TOPICALLY TO FACE EVERY DAY 3 Active metFORMIN XR (Glucophage-XR) 500 mg 24 hr tablet Take 1,000 mg by mouth daily with evening meal. Do not crush, chew, or split. Active amoxicillin (Amoxil) 500 mg tablet Take 1 tablet by mouth every 6 (six) hours during the day. 4 Active amoxicillin-pot clavulanate (Augmentin) 875-125 mg tablet Take 1 tablet by mouth Twice daily at 6am and 6pm. 4 Active azithromycin (Zithromax) 250 mg tablet TAKE 2 TABLETS BY MOUTH ON DAY 1, AND THEN TAKE 1 TABLET BY MOUTH ONCE A DAY ON DAY 2 THROUGH DAY 5 5 Active nitrofurantoin, macrocrystal-monoh ydrate, (Macrobid) 100 mg capsule Take 1 capsule by mouth Twice daily at 6am and 6pm. 4 Active fluconazole (Diflucan) 150 mg tablet Take 1 tablet by mouth in the morning. 4 Active fluconazole (Diflucan) 200 mg tablet Take 1 tablet by mouth in the morning. 5 Active medroxyPROGESTERon e (Depo-Provera) 150 mg/mL syringe injection syringe INJECT 1 MILLILITER INTO THE MUSCLE ONCE EVERY 12 - 13 WEEKS WITH A HEALTHCARE PROVIDER 5 Active ondansetron ODT (Zofran-ODT) 4 mg disintegrating tablet Take 4 mg by mouth every 8 (eight) hours if needed. 4 Active sucralfate (Carafate) 1 gram tablet every 12 (twelve) hours. Active atomoxetine (Strattera) 40 mg capsule 40 mg once daily in the morning. 4 Active pantoprazole (ProtoNix) 40 mg EC tablet Take 40 mg by mouth before breakfast. Do not crush, chew, or split. Active hydroxychloroquine (Plaquenil) 200 mg tabletIndications: Palindromic rheumatism Take 2 tablets (400 mg) by mouth in the morning. 60 tablet 6 5 Active predniSONE (Deltasone) 2.5 mg tabletIndications: Palindromic rheumatism Take 3 tablets (7.5 mg) by mouth in the morning. 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 12/29/2022 Morbid obesity 09/21/2020 Pneumonia due to COVID-19 virus 09/21/2020 Immunizations Immunization Administration Dates Next Due DTP / HiB 02/19/1995,1994,1994 DTaP, Unspecified 10/10/1997 Hep B, Adolescent or Pediatric 05/12/1995,1994,1994 HiB, unspecified 12/02/1995 Influenza, injectable, quadr ivalent, preservative free 09/21/2020,05/28/2017,07/24/2015,2013 Influenza, injectable, quadr ivalent, preservative free, pediatric 06/05/2022 Influenza, recombinant, quad rivalent, injectable, preservative free 07/04/2021,07/04/2021 Influenza, seasonal, injecta ble, preservative free, 6 moonths & older 10/24/2024,05/12/2016,05/31/2015 MMR 12/02/1995 Moderna 12 YR UP Vaccine BiV alent Booster 06/05/2022 Moderna SARS-CoV-2 Vaccination 06/05/2022 OPV 02/19/1995,1994,1994 Pfizer SARS-CoV-2 Vaccination 07/04/2021 Unspecified Sars-Cov-2 Vaccination 07/04/2021,,12/04/2020 Family History Medical History Relation Name Comments Arthritis Father Veto Nicolas Cancer Maternal Grandfather Elvis Rader Cancer Maternal Grandmother Ct Rader Arthritis Mother Meagan [place] Depression Mother Meagan Soto Diabetes Mother Meagan [place] Heart disease Mother Meagan [place] Hyperlipidemia Mother Megaan Soto Hypertension Mother Meagan [place] Irritable bowel syndrome Mother Meagan [place] Kidney disease Mother Meagan [place] Diabetes Paternal Grandfather Kunal Nicolas Cancer Paternal Grandmother Teodora Matthews Relation Name Status Comments Father Veto Nicolas Maternal Grandfather Elvis Rader Maternal Grandmother [place] Rader Mother Meagan Soto Paternal Grandfather Kunal Nicolas Paternal Grandmother Teodora Matthews Social History Tobacco Use Types Packs/Day Years Used Date Smoking Tobacco: Never Smokeless Tobacco: Never Alcohol Use Standard Drinks/Week Comments Not Currently 0 (1 standard drink = 0.6 oz pure alcohol) Drank occasionally before, stopped recently Humiliation, Afraid, Rape, and Kick questionnair e Answer Date Recorded Within the last year, have y ou been afraid of your partner or ex-partner? No 04/20/2023 Within the last year, have y ou been humiliated or emotionally abused in other ways by your partner or ex-partner? No Within the last year, have y ou been kicked, hit, slapped, or otherwise physically hurt by your partner or ex-partner? No 04/20/2023 Within the last year, have y ou been raped or forced to have any kind of sexual activity by your partner or ex-partner? No 04/20/2023 Overall Financial Resource Strain (CARDIA) Answe r Date Recorded How hard is it for you to pa y for the very basics like food, housing, medical care, and heating? Not hard at all 04/20/2023 PHQ-2 Answer Date Recorded Patient Health Questionnaire-2 Score 6 11/24/2024 [place] Safety & Environment Answer Date Rec orded Within the last year, have y ou been afraid of your partner or ex-partner? No 04/20/2023 Within the last year, have y ou been humiliated or emotionally abused in other ways by your partner or ex-partner? No 04/20/2023 Within the last year, have y ou been kicked, hit, slapped, or otherwise physically hurt by your partner or ex-partner? No 04/20/2023 Within the last year, have y ou been raped or forced to have any kind of sexual activity by your partner or ex-partner? No 04/20/2023 In the past year have you be en physically or sexually abused? Unrecognized value 04/20/2023 Transportation Answer Date Recorded In the past 12 months, has l ack of transportation kept you from medical appointments or from getting medications? No 04/20/2023 Lack of Transportation (Non-Medical) Not on file 04/20/2023 Housing Stability Vital Sign Answer Omar e Recorded Unable to Pay for Housing in the Last Year Not o n file 04/20/2023 Number of Places Lived in the Last Year Not on f ile 04/20/2023 In the last 12 months, was t here a time when you did not have a steady place to sleep or slept in a residential (including now)? No 04/20/2023 Hunger Vital Sign Answer Date Recorded Within the past 12 months, y ou worried that your food would run out before you got the money to buy more. Never true 04/20/20 23 Ran Out of Food in the Last Year Not on file 04/20/2023 Comments Unknown Sex and Gender Information Value Date Recorded Sex Assigned at Not on file Legal Sex Female 10:15 PM EDT Gender Identity Not on file Sexual Orientation Not on file Last Filed Vital Signs Vital Sign Reading Time Taken Comments Blood Pressure 137/83 11/24/2024 2:53 PM EDT Pulse 109 11/24/2024 2:53 PM EDT Temperature 36.6 C (97.9 F) 02/09/2023 10:24 PM EDT Respiratory Rate 19 02/10/2023 2:36 AM EDT Oxygen Saturation 98% 11/24/2024 2:53 PM EDT Inhaled Oxygen Concentration - - Weight 166 kg (366 lb) 11/24/2024 2:53 PM EDT Height 162.6 cm (5' 4 ) 11/24/2024 2:53 PM EDT Body Mass Index 62.82 11/24/2024 2:53 PM EDT Plan of Treatment Health Maintenance Due Date Last Done Comments Diabetes: Hemoglobin A1C 1994 IPV Vaccines (4 of 4 - 4-dose series) 1998 02/19/1995, 1994, 1994 Diabetes: Retinopathy Screening 2004 Varicella Vaccines (1 of 2 - 13+ 2-dose series) 2007 Diabetes: Urine Protein Screening 2013 Pap Smear 2015 Adult Tetanus 2016 COVID-19 Vaccine ( season) 2024 06/05/2022, 06/05/2022, 07/04/2021, Additional history exists Cervical Cancer Screening 2024 HPV/Cotest 2024 Influenza Vaccine (#1) 2025 , 06/05/2022, 07/04/2021, Additional history exists Depression Screening 11/24/2025 11/24/2024 Zoster Vaccines (1 of 2) 2044 HIB Vaccines Completed 12/02/1995, 04/1995, 1994, Additional history exists HPV Vaccines Aged Out No longer eligi ble based on patient's age to complete this topic Meningococcal B Vaccine Aged Out No l onger eligible based on patient's age to complete this topic Meningococcal Vaccine Aged Out No sulma sheela eligible based on patient's age to complete this topic Pneumococcal Vaccine: Pediatrics (0 to 5 Years) and At-Risk Patients (6 to 64 Years) Aged Out No longer eligible based on patient's age to complete this topic Rotavirus Vaccines Aged Out No longer eligible based on patient's age to complete this topic Insurance [facility] MEDICAID Member Subscriber Plan / Payer (Ef fective 2022-Present) Name:DanaEdgar marshna Relation to Subscriber:Self Name:YgKarla marsh Payer ID:[id number] (NAIC) Group ID:[id number] Type:Not on file Address: [address] Care Teams Lumber Straightener Relationship Specialty Start Date End Date Scott Dalton MD [address] [place] [address] PCP - General 02/09/23
--- OUTSIDE RECORDS SUMMARY | 2025-04-05 11:50 | XMS_ITS | Clinical Summary ---
Author Organization [facility] Address [address] [place] [address] Care Team Providers Care Manufacturing Leader Name Role Phone Florina Fernandez MD Primary Care Provider [phone] Social History Tobacco Use Types Packs/Day Years Used Date Smoking Tobacco: Never Assessed Comments Unknown Sex and Gender Information Value Date Recorded Sex Assigned at Not on file Legal Sex Female 7:05 PM EDT Gender Identity Not on file Sexual Orientation Not on file Last Filed Vital Signs Vital Sign Reading Time Taken Comments Blood Pressure 138/95 05/28/2022 12:00 PM EDT Pulse - - Temperature - - Respiratory Rate - - Oxygen Saturation - - Inhaled Oxygen Concentration - - Weight 173 kg (381 lb) 10/30/2022 12:00 PM EST Height 162.6 cm (5' 4 ) 10/30/2022 12:00 PM EST Body Mass Index 65.4 10/30/2022 12:00 PM EST Plan of Treatment Health Maintenance Due Date Last Done Comments Pap Smear 2015 Cervical Cancer Screening 2024 HPV/Cotest 2024 Influenza Vaccine (#1) 2025 , 06/05/2022, 07/04/2021, Additional history exists Insurance [employer] Care Teams Manufacturing Leader Relationship Specialty Start Date End Date Florina Fernandez MD PCP - General Behavioral Health 06/21/24
--- OUTSIDE RECORDS SUMMARY | 2025-04-05 11:50 | XMS_ITS | Encounter Summary ---
Author Organization [employer] Address [id number] [address] [place] [address] Care Team Providers Care Linen Clerk Name Role Phone Yanni Mauricio APRN-SENIOR HEALTH EDUCATOR Primary Care Provider Reason for Visit * Reason Comments Med Refill Encounter Details Date Type Department Care Team (Late Contact Info) Description 12/12/2021 Refill [facility] [address] [place] [phone] Kemi Daniels PA [address] [place] [phone] Urinary tract infection without hematuria, site unspecified [...] Recorded Do you need help finding a [employer] career center and/or a training program? No [...] Upcoming Encounters Date Type Department Care Team ([facility] Contact Info) Description 04/27/2025 3:00 PM EDT Office Visit [facility] [address] [place] [phone] Yanni Mauricio APRN-CNP [address] [place] [address] [phone] documented as of this encounter Visit Diagnoses Diagnosis Urinary tract infection without hematuria, site unspecified documented in this encounter Additional Health Concerns Infection Onset Date Last Indicated Resolved Time COVID-19 Rule-Out 05/13/2024 05/13/2024 05/13/2024 12:22 PM EDT documented as of this encounter Care Teams Linen Clerk Relationship Specialty Start Date End Date Yanni Mauricio APRN-CNP [address] [place] [address] [phone] PCP - General Family Medicine 01/23/25 documented as of this encounter
[2025-04-05] MEDS: KETOROLAC TROMETHAMINE 60 MG/2 ML VIAL IM (12:11)
[2025-04-05] MEDS: ORPHENADRINE 60 MG/2 ML VIAL IM (12:11)
--- NOTE | 2025-04-05 12:18 | ED.BACK1 ---
HPI HPI - Back Pain/Injury General Chief Complaint: Back Pain/Injury Stated Complaint: LEG AND BACK PAIN Time Seen by Provider: 04/05/25 11:52 Source: patient Mode of arrival: walk-in Limitations: no limitations History of Present Illness HPI Narrative: The patient is a 29-year-old female who is coming to the ER with a right back pain radiating to the right leg, patient does have history of back issues and she is morbidly obese with a BMI of 61, the patient denies any fall or trauma she mentioned that she might have been bending to get something and when the pain started, the pain radiated to the right leg there is no association with any incontinence or any weakness The patient tried some Tylenol at home with no effect and she also take Flexeril Related Data Home Medications ?Medication ?Instructions ?Recorded ?Confirmed alprazolam 0.5 mg tablet mg 04/05/25 bupropion HCl 150 mg 24 hr tablet, mg PO 04/05/25 extended release buspirone 30 mg tablet mg 04/05/25 fluoxetine 40 mg capsule mg 04/05/25 Previous Rx's ?Medication ?Instructions ?Recorded albuterol sulfate 90 mcg/actuation 2 inh inhalation Q6H PRN shortness 11/06/24 aerosol inhaler of breath or wheezing #6.7 grams azithromycin 250 mg tablet See Rx Instructions PO .COMPLEX #6 11/06/24 tabs fluconazole 200 mg tablet 200 mg PO ONCE #1 tab 11/06/24 (Diflucan) acetaminophen 650 mg 650 mg PO Q8H PRN pain #20 tabs 04/05/25 tablet,extended release (Tylenol Arthritis Pain) prednisone 50 mg tablet 50 mg PO DAILY 3 days #3 tabs 04/05/25 Allergies Allergy/AdvReac Type Severity Reaction Status Date / Time No Known Drug Allergies Allergy Verified 04/05/25 11:48 Opioid HPI Opioid Management Most Recent Opioid Data: Last Pain Scale 8 Today, 12:11 Last MAR Pain Assessment Today, 12:11 Review of Systems ROS Status of ROS 10 or more systems reviewed and unremarkable except as noted in history and below PFSH PFSH Social History Little interest or pleasure in doing things: not at all Feeling down, depressed, or hopeless: not at all Exam Narrative Exam Narrative: Nurses notes and vital signs reviewed and patient is not hypoxic. General: Well-appearing and in no apparent distress. Back exam: No intervertebral line tenderness although the patient had some tenderness at the sacral area and toward the hip bilaterally but at the lumbar level the patient had no intervertebral line tenderness or paraspinal muscle tenderness Musculoskeletal: normal ROM, no calf or popliteal tenderness, no lower extremity edema/swelling Neurological: A&O x4. No cranial nerve dysfunction observed. No truncal ataxia. Moves all extremities. Sensation intact. Psychiatric: Cooperative and interactive. Normal mood and affect. Constitutional Vital Signs, click to edit/add: Last Vital Signs Temp 98.2 F 04/05/25 11:49 Pulse 103 H 04/05/25 11:49 Resp 18 04/05/25 11:49 BP 135/89 04/05/25 11:49 Pulse Ox 96 04/05/25 11:49 Course Vital Signs Vital signs: Vital Signs Temperature 98.2 F 04/05/25 11:49 Pulse Rate 103 H 04/05/25 11:49 Respiratory Rate 18 04/05/25 11:49 Blood Pressure 135/89 04/05/25 11:49 Pulse Oximetry 96 04/05/25 11:49 Temperature 98.2 F 04/05/25 11:49 Pulse Rate 103 H 04/05/25 11:49 Respiratory Rate 18 04/05/25 11:49 Blood Pressure 135/89 04/05/25 11:49 Pulse Oximetry 96 04/05/25 11:49 MDM - Back Pain/Injury MDM Narrative Medical decision making narrative: The patient presented to us with a symptoms of possible sciatica although the patient was not using anything other than Tylenol 1 time as well as Flexeril 1 time She was treated in the ER with Toradol 1 dose 60 mg in addition to Norflex discharged home with prednisone for about 3 days with advised to the patient that the prednisone might increase her blood sugar but we need anti-inflammatory effect The patient referred to orthopedic as outpatient is needed She will start taking her Flexeril twice daily for the next few days Patient educated about alarming symptoms she is to come back to the ER in case of any symptoms or concerns The patient is to follow up with primary care physician in next 2-3 days or to return to the emergency department should any of the signs or symptoms worsen or new symptoms develop. The patient agrees with the following Diagnosis and Treatment plan and the patient will be discharged home. Discharge Plan Discharge Chief Complaint: Back Pain/Injury Clinical Impression: Sciatica of right side Patient Disposition: Home, Self-Care Time of Disposition Decision: 12:21 Condition: Good Prescriptions / Home Meds: New acetaminophen [Tylenol Arthritis Pain] 650 mg tablet extended release 650 mg PO Q8H PRN (Reason: pain) Qty: 20 0RF prednisone 50 mg tablet 50 mg PO DAILY 3 Days Qty: 3 0RF No Action fluconazole [Diflucan] 200 mg tablet 200 mg PO ONCE Qty: 1 0RF azithromycin 250 mg tablet See Rx Instructions .ROUTE .COMPLEX Qty: 6 0RF Rx Instructions: For 250 mg dose pack: take 500 mg today (day 1), then 250 mg for 4 days (days 2-5) albuterol sulfate 90 mcg/actuation HFA aerosol inhaler 2 inh inhalation Q6H PRN (Reason: shortness of breath or wheezing) Qty: 6.7 0RF fluoxetine 40 mg capsule alprazolam 0.5 mg tablet buspirone 30 mg tablet bupropion HCl 150 mg tablet extended release 24 hr PO Print Language: Ukrainian Instructions: Acute Low Back Pain (ED) Referrals: El Oliver DO [Physician, Orthopedics] - 1 week Yanni Mauricio NP [Primary Care Provider] - 1 week Discharge Date/Time: 04/05/25 12:32
== END 2025-04-05 12:32 | disposition home or self-care (01) ==
PROVIDERS: Emergency Provider Emergency Medicine; PCP Nurse Practitioner Family
DX: M54.31 Sciatica, right side (principal); E66.01 Morbid (severe) obesity due to excess calories; Z68.44 Body mass index [BMI] 60.0-69.9, adult
CPT/HCPCS: 99284; J1885; J2360

== ENCOUNTER 2025-04-07 13:27 | Emergency (ER) | payer OTHER, SELFPAY ==
--- OUTSIDE RECORDS SUMMARY | 2020-05-15 14:26 | XMS_ITS | Continuity of Care Document ---
Author Organization [facility] Address [address] [place] [address] Phone Care Team Providers Care Assistant Professor Of Marine Biology Name Role Phone Gaye GARCIA, Mercedes Unavailable [...] ral route every day in the morning 20 MG - Active buspirone 15 mg tablet take [...] Diagnoses Date Provider Providers Copied on Encounter [facility], [address] [place] [address], [id number] , [place] tel: [phone] [facility] No Information 0 Missler CHAIR INSTALLER Mercedes. [address] [place], [place], [id number] , [place]. tel: [phone] [facility], [address] [place] [address], [id number] , [place] tel: [phone] [facility] No Information 0 Missler CHAIR INSTALLER Mercedes. [address] [place], [place], [id number] , [place]. tel: [phone] [facility], [address] [place] [address], [id number] , [place] tel: [phone] [facility] No Information 0 Missler CHAIR INSTALLER Mercedes. [address] [place], [place], [id number] , [place]. tel: [phone] OFFICE/OUTPA TIENT VISIT, [facility], [address] [place] [address], [id number] , [place] tel: [phone] [facility] Est Care (chief complaint) Body mass index (BMI) 60.0-69.9, adultPrediabetesPCOS (polycystic ovarian syndrome)Family history of anticardiolipin syndromeAnxiety disorder, unspecified type 0 Missler CHAIR INSTALLER Mercedes. [address] [place], [place], [id number] , [place]. tel: [phone] Family History Family Member Type Diagnosis Age [...] hypertension Payers Payer name Insurance type Covered constitution party ID Authoriza tion(s) Medicaid [facility] [id number] Social History Type Description Quantity Date Captured Comments Sex Female Smoking Status No Information Sexual Orientation Straight or heterosexual Gender Identity Female Egremias-13-2020 Chief Complaint And Reason For Visit No Information Reason For Referral Reason For Referral No Information Plan Of Treatment Date Type Action Status Goal Dietary manageme nt education, guidance, and counseling completed Future Order: Lab Order CBC With Differential/Platelet ([id number]), Ordered on: Ordered Future Order: Lab Order Comp. Me tabolic Panel (14) ([id number]), Ordered on: Ordered Future Order: Lab Order Lipid Pa lucy ([id number]), Ordered on: Ordered Future Order: Lab Order TSH+Free T4 ([id number]), Ordered on: Ordered Future Order: Lab Order Vitamin B12 ([id number]), Ordered on: Ordered Future Order: Lab Order Lupus An ticoag/Cardiolipin Ab ([id number]), Ordered on: Ordered Future Order: Lab Order Anticard iolipin Ab, IgG/M, Qn ([id number]), Ordered on: Ordered Future Order: Lab Order PT and P TT ([id number]), Ordered on: Ordered History Of Present Illness [...] was going to [facility] in [place] for mental health medications. Pt states she missed too many apts and she was discharged. [facility]RS completed, [facility] Pt states she has previous diagnosis of [...] A1c was about a year ago at [employer]. States it was low . Takes propranolol [...]
--- OUTSIDE RECORDS SUMMARY | 2024-12-14 11:30 | XMS_ITS ---
Author Organization [facility] Address [address] [place], [place] [address] Care Team Providers Care Pull Worker Name Role Phone Tiffany Pate Primary Care Provider [phone] Maria Eugenia Jarrett [phone] REASON FOR VISIT DM & HTN Social History Sex Assigned At : Social History Observation Description Sex Assigned At Female Encounters Encounter Location Date Provider Diagnosis Main [address] [place], [place] [id number] 12/14/2024 Maria Eugenia Scott Plan Of Treatment No Information Progress Notes * Karla BURCH CDOB:1994 (29 yo F)Acc No.[id number]:12/14/2024 Patient: Joshua GARCIAKarla Provider: Adan Scott :1995 A ge:29 Y S ex:Female Date:12/14/2024 Address:[address] [place], [place] [id number] Pcp:Tiffany Pate Subjective: * Chief Complaints: * 1 . DM & HTN. * Medical History: Objective: * Vitals: Assessment: Plan: * Treatment: * Billing Information: * Visit Code: * Procedure Codes: * Electronic signature of LIANNA Wolf sa on 04/07/2025 at 01:59 PM EDT Sign off status: Pending * Provider: Adan Scott Date: 0 12/14/2024 Generated for Lacho garzon/Keily/Johnitting on: 0 04/07/2025 01:59 PM EDT
--- OUTSIDE RECORDS SUMMARY | 2024-12-26 13:45 | XMS_ITS ---
Author Organization [facility] vices Address [address] [place] [id number] Care Team Providers Care Rn Mds Coordinator Name Role Phone Tiffany Pate Primary Care [...] Date Provider Diagnosis Main [address] [place], [place] [id number] 12/26/2024 Tiffany Pate Plan Of Treatment No Information Progress Notes * Karla BURCH CDOB:1994 (29 yo F)Acc No.[id number]:12/26/2024 Medical Note Patient: Karla WEEKS Provider: Rocío Pate MD :1995 A ge:29 Y S ex:Female Date:12/26/2024 Address:[address] [place], [place] [id number] Subjective: * Chief Complaints: * 1 . [...] Electronic signature of Gena Pate MD on 04/07/2025 at 01:58 PM EDT Sign off status: Pending * Provider: Rocío Pate MD Date: 12/26/2024 Generated for Lacho garzon/Keily/Carissa on: 04/07/2025 01:58 PM EDT
--- OUTSIDE RECORDS SUMMARY | 2024-12-27 05:30 | XMS_ITS ---
Author Organization [facility] vices Address [address] [place], [place] [address] Care Team Providers Care Account Manager Sales Representative Name Role Phone Tiffany Pate Primary Care Provider REASON FOR VISIT Wellness Social History Sex Assigned At : Social History Observation Description Sex Assigned At Female Encounters Encounter Location Date Provider Diagnosis Main [address] [place], [place] [id number] 12/27/2024 Tiffany Pate Plan Of Treatment No Information Progress Notes * Karla BURCH CDOB:1994 (29 yo F)Acc No.[id number]:12/27/2024 Progress Notes Patient: Karla WEEKS Provider: Rocío Pate MD :1995 A ge:29 Y S ex:Female Date:12/27/2024 Address:[address] [place], [place] [id number] Subjective: * Chief Complaints: * 1 . Wellness. * Medical History: Objective: * Vitals: Assessment: Plan: * Treatment: Care Plan: * Problems: * Billing Information: * Visit Code: * Procedure Codes: * Electronic signature of Gena Pate MD on 04/07/2025 at 01:58 PM EDT Sign off status: Pending * Provider: Rocío Pate MD Date: 0 12/27/2024 Generated for Printi ng/Faxing/eTransmitting on: 0 04/07/2025 01:58 PM EDT
[2025-04-07 13:40] VITALS: BP 139/93; PULSE 97; TEMP 37.4; O2SAT 96; BMI 61.8
--- NOTE | 2025-04-07 13:52 | CT_ITS ---
[facility] [place] [address] Patient Name: MARLI BURCH MRN: [id number] date: 1995 Sex: F Assigned Patient Location: ER Current Patient Location: [facility] Accession/Order Number: [id number] Exam Date: 04/07/2025 14:43 Report Date: 04/07/2025 14:46 At the request of: LORIN HOLLINGSWORTH Procedure: CT lumbar spine wo con CT LUMBAR SPINE WITHOUT INTRAVENOUS CONTRAST: CLINICAL HISTORY: radicular right pain COMPARISON: None TECHNIQUE: Spiral images were obtained through the lumbar spine without intravenous contrast. This CT exam was performed using one or more following dose reduction techniques: Automated exposure control, adjustment of the mA and/or kV according to patient size, or use of iterative reconstruction technique. FINDINGS: No fracture or malalignment. Vertebral body imaging. Minimal multilevel Schmorl's node deformities identified. There is evidence of anterolisthesis and disc space narrowing L5-S1 with degree of anterolisthesis measuring 6 mm. There is a suspected disc extrusion at L5-S1 measuring 1.6 x 1.0 x 1.5 cm in size. Question posterior displacement of the right S1 nerve root. Otherwise mild facet arthropathy and vsrd-im-fopwntdp neural foraminal narrowing at this level. CT/CT lumbar spine wo con IMPRESSION: Suspect moderate size disc extrusion L5-S1 displacing the S1 nerve root. Correlate with right S1 radiculopathy. Impression dictated by: Brett Aranda M.D. 04/07/2025 2:46 PM Dictation Location: [place] [address] Electronically authenticated by: [id number] Y Date: 04/07/2025 14:46
--- NOTE | 2025-04-07 13:54 | ED.GENADUL1 ---
HPI HPI - General Adult General Chief complaint: Extremity Problem, Nontraumatic Stated complaint: NUMBNESS R LEG Time Seen by Provider: 04/07/25 13:48 Source: patient Mode of arrival: walk-in Limitations: no limitations History of Present Illness HPI narrative: Patient presents to the emergency department with complaints of numbness and tingling to the right buttock and lateral aspect of the thigh. Patient states that she was seen in the emergency department last week and diagnosed with right-sided sciatica. Patient states that she was advised that if she is to develop any numbness she needs to return to the emergency department and for the past day she has had numbness to the area. Patient does state that the pain has improved. Patient was treated with oral steroids with the last dose taken today, increase in her muscle relaxers and was referred to orthopedic but has not been able to follow-up yet. Patient denies any loss of bowel or bladder control. Anesthesia/numbness is through the lateral aspect of the leg and not in the perineal region and sensation grossly intact distal. No abdominal pain associated with the symptoms. No recent falls or blunt trauma. Onset (ago): day(s) Location: Reports back Severity: mild Quality: Reports other ( numbness/tingling ) Associated symptoms: Denies fever/chills, headaches or weakness Related Data Home Medications ?Medication ?Instructions ?Recorded ?Confirmed alprazolam 0.5 mg tablet 0.5 mg PO BID PRN anxiety 04/05/25 04/07/25 bupropion HCl 150 mg 24 hr tablet, 150 mg PO DAILY 04/05/25 04/07/25 extended release fluoxetine 40 mg capsule 40 mg PO DAILY 04/05/25 04/07/25 cyanocobalamin (vitamin B-12) 1,000 mcg PO DAILY 04/07/25 04/07/25 1,000 mcg tablet dicyclomine 20 mg tablet 20 mg PO DAILY 04/07/25 04/07/25 fexofenadine 180 mg tablet 180 mg PO Q24H 04/07/25 04/07/25 methylphenidate HCl 18 mg 18 mg PO DAILY 04/07/25 04/07/25 tablet,extended release 24 hr pantoprazole 40 mg tablet,delayed 40 mg PO DAILY 04/07/25 04/07/25 release Previous Rx's ?Medication ?Instructions ?Recorded acetaminophen 650 mg 650 mg PO Q8H PRN pain #20 tabs 04/05/25 tablet,extended release (Tylenol Arthritis Pain) prednisone 50 mg tablet 50 mg PO DAILY 3 days #3 tabs 04/05/25 prednisone 10 mg tablet See Rx Instructions .Route 04/07/25 .COMPLEX #20 tabs Allergies Allergy/AdvReac Type Severity Reaction Status Date / Time No Known Drug Allergies Allergy Verified 04/07/25 13:40 Opioid HPI Opioid Management Most Recent Opioid Data: Last Pain Scale 6 Today, 13:40 Last MAR Pain Assessment 04/05/25, 12:11 Review of Systems ROS Status of ROS 10 or more systems reviewed and unremarkable except as noted in history and below Constitutional Denies: fever or chills Gastrointestinal Denies: abdominal pain, nausea or vomiting Genitourinary Denies: painful urination, urinary frequency, urinary incontinence, vaginal bleeding or vaginal discharge Musculoskeletal Denies: extremity swelling or muscle weakness Integumentary/Breast Denies: rash Neurological Reports: numbness in extremities (unilateral right side in SI joint); Denies: weakness in extremities PFSH PFSH Social History Little interest or pleasure in doing things: not at all Feeling down, depressed, or hopeless: not at all Exam Constitutional Vital Signs, click to edit/add: Last Vital Signs Temp 99.3 F 04/07/25 13:40 Pulse 88 04/07/25 14:53 Resp 18 04/07/25 14:53 BP 141/82 04/07/25 14:53 Pulse Ox 98 04/07/25 14:53 O2 Del Method Room Air 04/07/25 13:40 Documenting provider has reviewed patient's vital signs: yes Common normals: no apparent distress Nutritional appearance: obese morbidly obese Orientation/consciousness: Yes awake, Yes oriented to person, Yes oriented to place and Yes oriented to time Respiratory Common normals: normal respiratory effort Cardio Common normals: regular rate GI Common normals: soft to palpation and non-tender Back & Pelvis General back: no CVA tenderness Lumbar spine/lower back: lumbar ROM normal, lumbar spinal tenderness, paraspinal muscle tenderness and paraspinal muscle spasm Sacroiliac joints: SI joint(s) abnormal SI joint details: tender to palpation Course Vital Signs Vital signs: Vital Signs Temperature 99.3 F 04/07/25 13:40 Pulse Rate 97 H 04/07/25 13:40 Respiratory Rate 18 04/07/25 13:40 Blood Pressure 139/93 H 04/07/25 13:40 Pulse Oximetry 96 04/07/25 13:40 Oxygen Delivery Method Room Air 04/07/25 13:40 Temperature 99.3 F 04/07/25 13:40 Pulse Rate 88 04/07/25 14:53 Respiratory Rate 18 04/07/25 14:53 Blood Pressure 141/82 04/07/25 14:53 Pulse Oximetry 98 04/07/25 14:53 Oxygen Delivery Method Room Air 04/07/25 13:40 Medical Decision Making MDM Narrative Medical decision making narrative: Patient presented to the emergency department with numbness to the buttock and lateral aspect of the right thigh. Patient no saddle paresthesias or loss of bowel or bladder control to suggest cauda equina syndrome. Patient had been seen last week and treated with steroids and muscle relaxants that had worsening symptoms so CT lumbar spine was obtained today. CT consistent with S1 radiculopathy due to bulging disc. Patient had no hematuria or dysuria, flank pain or abdominal pain to suggest UTI. I discussed following up with orthopedic spine due to sciatica. Discussed reasons to return to the emergency department at length including saddle paresthesias or loss of bowel or bladder control. Patient agreeable to plan of care and Medical Records Medical records reviewed: Yes I reviewed the patient's medical records Imaging Data Abdominal x-ray: Attestation: I have reviewed the pertinent imaging results. Radiologist's impression: ITS Impressions Lumbar Spine CT 04/07/25 13:52 IMPRESSION: Suspect moderate size disc extrusion L5-S1 displacing the S1 nerve root. Correlate with right S1 radiculopathy. Impression dictated by: Brett Aranda M.D. 04/07/2025 2:46 PM Dictation Location: [place] [address] Electronically authenticated by: [id number] Y Date: 04/07/2025 14:46 Discharge Plan Discharge Chief Complaint: Extremity Problem, Nontraumatic Clinical Impression: Lumbar radiculopathy, acute, Sciatica of right side Patient Disposition: Home, Self-Care Time of Disposition Decision: 15:01 Prescriptions / Home Meds: New prednisone 10 mg tablet See Rx Instructions .ROUTE .COMPLEX Qty: 20 0RF Rx Instructions: 4 tablets daily for 2 days, 3 tablets daily for 2 days, then 2 tablets for 2 days and 1 tablet for 2 days No Action cyanocobalamin (vitamin B-12) 1,000 mcg tablet 1,000 mcg PO DAILY dicyclomine 20 mg tablet 20 mg PO DAILY fexofenadine 180 mg tablet 180 mg PO Q24H methylphenidate HCl 18 mg tablet extended release 24hr 18 mg PO DAILY pantoprazole 40 mg tablet,delayed release (DR/EC) 40 mg PO DAILY fluoxetine 40 mg capsule 40 mg PO DAILY alprazolam 0.5 mg tablet 0.5 mg PO BID PRN (Reason: anxiety) bupropion HCl 150 mg tablet extended release 24 hr 150 mg PO DAILY acetaminophen [Tylenol Arthritis Pain] 650 mg tablet extended release 650 mg PO Q8H PRN (Reason: pain) Qty: 20 0RF prednisone 50 mg tablet 50 mg PO DAILY 3 Days Qty: 3 0RF Print Language: Kinyarwanda Instructions: Sciatica (ED), Lumbar Radiculopathy (ED), Lower Back Exercises (ED) Referrals: Yanni Mauricio NP [Primary Care Provider] - 1 week El Oliver DO [Physician, Orthopedics] - 1 week
--- OUTSIDE RECORDS SUMMARY | 2025-04-07 13:59 | XMS_ITS | Encounter Summary ---
Author Organization [facility] [facility] tem Address [id number] [address] [place] [address] Care Team Providers Care Slat Basket Maker Machine Name Role Phone Yanni Mauricio APRN-CLAY HOISTER Primary Care Provider Reason for Visit * Reason Comments Med Refill Encounter Details Date Type Department Care Team ([facility] st Contact Info) Description 04/06/2025 Refill [facility] [address] [place] [phone] Yanni Mauricio APRN-CNP [address], [place] [phone] Encounter for initial prescription of injectable contraceptive Social History Tobacco Use Types Packs/Day Years [...] Recorded Do you need help finding a [facility] career center and/or a training program? [...] file Not on file Not on file documented as of this encounter Plan of Treatment Upcoming Encounters Date Type Department Care Team (Late st Contact Info) Description 04/27/2025 3:00 PM EDT Office Visit [facility] [address] [place] [phone] Yanni Mauricio APRN-CNP [address] [place] [phone] documented as of this encounter Visit Diagnoses Diagnosis Encounter for initial prescription of injectable contraceptive documented in this encounter Additional Health Concerns Assessment Noted Time PHQ-9 Depression Total Score: 0 01/24/20 25 1:58 PM EDT documented as of this encounter Care Teams Slat Basket Maker Machine Relationship Specialty Start Date End Date Yanni Mauricio APRN-CNP [address] [place] [phone] PCP - General Family Medicine 01/23/25 documented as of this encounter
--- OUTSIDE RECORDS SUMMARY | 2025-04-07 13:59 | XMS_ITS | Encounter Summary ---
Author Organization [employer] tem Address [facility] [id number] [address] [place] [address] Care Team Providers Care Marine Oil Terminal Superintendent Name Role Phone Yanni Mauricio APRN-HORSE SHOER Primary Care Provider Reason for Visit * Reason Comments Med Refill Encounter Details Date Type Department Care Team (Late Contact Info) Description 12/12/2021 Refill [facility] [address] [place] [phone] Kemi Daniels PA [address] [place] [phone] Urinary tract infection without hematuria, site unspecified [...] Recorded Do you need help finding a [employer] career center and/or a training program? No [...] Upcoming Encounters Date Type Department Care Team ([facility] Contact Info) Description 04/27/2025 3:00 PM EDT Office Visit [facility] [address] [place] [phone] Yanni Mauricio APRN-CNP [address] [place] [phone] documented as of this encounter Visit Diagnoses Diagnosis Urinary tract infection without hematuria, site unspecified documented in this encounter Additional Health Concerns Infection Onset Date Last Indicated Resolved Time COVID-19 Rule-Out 05/13/2024 05/13/2024 05/13/2024 12:22 PM EDT documented as of this encounter Care Teams Marine Oil Terminal Superintendent Relationship Specialty Start Date End Date Yanni Mauricio APRN-CNP [address] [place] [phone] PCP - General Family Medicine 01/23/25 documented as of this encounter
--- OUTSIDE RECORDS SUMMARY | 2025-04-07 13:59 | XMS_ITS | Clinical Summary ---
Author Organization [facility] Address [address] [place] [address] Care Team Providers Care Preparole Counseling Aide Name Role Phone Florina Fernandez MD Primary Care Provider [phone] Social History Tobacco Use Types Packs/Day Years [...] history exists Insurance [employer] Care Teams Preparole Counseling Aide Relationship Specialty Start Date End Date Florina Fernandez MD PCP - General Behavioral Health 06/21/24
--- OUTSIDE RECORDS SUMMARY | 2025-04-07 13:59 | XMS_ITS | Encounter Summary ---
Author Organization [employer] Sys tem Address [facility][id number] [address] [place] [address] Care Team Providers Care Bricklayer'S Assistant Name Role Phone Yanni Mauricio KENYA-SENIOR CYTOGENETICS LABORATORY DIRECTOR Primary Care Provider Reason for Visit * Reason Comments Med Refill Encounter Details Date Type Department Care Team (Late st Contact Info) Description 11/15/2021 Refill [facility] [address] [place] [address] [phone] Patricia Arana PA [address] [place] [phone] Urinary tract infection without hematuria, site unspecified [...] Recorded Do you need help finding a [facility] career center and/or a training program? No [...] Office Visit [facility] [address] [place] [phone] Yanni Mauricio APRN-CNP [address] [place] [phone] documented as of this encounter Visit Diagnoses Diagnosis Urinary tract infection without hematuria, site unspecified documented in this encounter Additional Health Concerns Infection Onset Date Last Indicated Resolved Time COVID-19 Rule-Out 05/13/2024 05/13/2024 05/13/2024 12:22 PM EDT documented as of this encounter Care Teams Bricklayer'S Assistant Relationship Specialty Start Date End Date Yanni Mauricio APRN-CNP [address] [place] [phone] PCP - General Family Medicine 01/23/25 documented as of this encounter
--- OUTSIDE RECORDS SUMMARY | 2025-04-07 13:59 | XMS_ITS | Encounter Summary ---
Author Organization [facility] tem Address [facility] [id number] [address] [place] [address] Care Team Providers Care Manager Pmo Name Role Phone MauricioDonna pardoflower ZAMBRANO-BOTTLE FEEDER Primary Care Provider Encounter Details Date Type Department Care Team (Late st Contact Info) Description 03/08/2025 Telephone [facility] of [facility] [address] [employer] [address] [phone] Nesha Guerrero CNA Social History Tobacco Use Types Packs/Day Years [...] Recorded Do you need help finding a [facility] career center and/or a training program? No [...] encounter Miscellaneous Notes * Telephone Encounter - Nesha Guerrero CNA - 03/08/2025 10:49 AM EDT 03/08/25 EGD & CLN by MB at [facility]/, [facility], ASA 3 w /PAT. On Trulicity needs held W/large volume prep, F/U 3 months after procedures Chronic GERD, const w/diarrhea, GB sludge) also no marijuna usage with Alicia. br * Telephone Encounter - Lexi Barrera - 03/08/2025 10:49 AM EDT Left a message on the patients voice mail to give the office a call back to schedule a EGD/Colonoscopy with Dr. Vance. My name and number was provided. * Telephone Encounter - Lexi Barrera - 03/08/2025 10:49 AM EDT Second attempt, Left a message on the patients voice mail to give the office a call back to schedule a EGD/Colonoscopy with Dr. Vance. My name and number was provided. Reminder card has been sent to the patients home address. documented in this encounter Plan of Treatment Upcoming Encounters Date Type Department Care Team (Late st Contact Info) Description 04/27/2025 3:00 PM EDT Office Visit [facility] [address] [place] [phone] Yanni Mauricio APRN-CNP [address] [place] [phone] documented as of this encounter Visit Diagnoses Not on filedocumented in this encounter Additional Health Concerns Assessment Noted Time PHQ-9 Depression Total Score: 0 01/24/20 1:58 PM EDT documented as of this encounter Care Teams Manager Pmo Relationship Specialty Start Date End Date Yanni Mauricio APRN-CNP [address] [place] [phone] PCP - General Family Medicine 01/23/25 documented as of this encounter
--- OUTSIDE RECORDS SUMMARY | 2025-04-07 13:59 | XMS_ITS | Clinical Summary ---
Author Organization [facility] Address [address] [place] [address] Care Team Providers Care Traffic Officer Name Role Phone Scott Dalton MD Primary Care Provider [phone] Allergies Active Allergy Reactions Criticality Noted Date [...] (02/20/2023): Added automatically from request for surgery [id number] Gastroesophageal reflux disease without esophagi tis 02/09/2023 [...] Maternal Grandmother Ct [address] Arthritis Mother Meagan [place] Depression Mother Meagan [place] Diabetes Mother [place] Heart disease Mother [place] Hyperlipidemia Mother [place] Hypertension Mother [place] Irritable bowel syndrome Mother [place] Kidney disease Mother Me[place] Diabetes Paternal [...] place to sleep or slept in a half-way (including now)? No 04/20/2023 Hunger Vital Sign [...] patient's age to complete this topic Insurance [facility] MEDICAID Member Subscriber Plan / Payer (Ef fective 2022-Present) Name:DanaEdgar marshna Relation to Subscriber:Self Name:YgKarla marsh Payer ID:[id number] (NAIC) Group ID:[id number] Type:Not on file Address: [address] Care Teams Traffic Officer Relationship Specialty Start Date End Date Scott Dalton MD [address] [place] [address] PCP - General 02/09/23
--- OUTSIDE RECORDS SUMMARY | 2025-04-07 13:59 | XMS_ITS | Encounter Summary ---
Author Organization Novat[employer] s tem Address [id number] [address] [place] [address] Care Team Providers Care Detail Maker And Fitter Name Role Phone aYnni Mauricio APRN-CEMENT FINISHER HELPER Primary Care Provider Reason for Visit * Reason Comments Med Refill Encounter Details Date Type Department Care Team (Late Contact Info) Description 07/01/2022 Refill [facility] [address] [place] [address] [phone] Kemi Daniels PA [address] [place] [phone] Urinary tract infection without hematuria, site unspecified [...] Recorded Do you need help finding a [employer] career center and/or a training program? No [...] Upcoming Encounters Date Type Department Care Team ([facility] Contact Info) Description 04/27/2025 3:00 PM EDT Office Visit [facility] [address] [place] [phone] Yanni Mauricio APRN-CNP [address] [place] [phone] documented as of this encounter Visit Diagnoses Diagnosis Urinary tract infection without hematuria, site unspecified documented in this encounter Additional Health Concerns Infection Onset Date Last Indicated Resolved Time COVID-19 Rule-Out 05/13/2024 05/13/2024 05/13/2024 12:22 PM EDT documented as of this encounter Care Teams Detail Maker And Fitter Relationship Specialty Start Date End Date Yanni Mauricio APRN-CNP [address] [place] [address] [phone] PCP - General Family Medicine 01/23/25 documented as of this encounter
--- OUTSIDE RECORDS SUMMARY | 2025-04-07 13:59 | XMS_ITS | Clinical Summary ---
Author Organization [employer] s tem Address [id number] [address] [place] [address] Care Team Providers Care Policy Checker Name Role Phone MauricioDonna pardoflower ZAMBRANO-POSTMASTER Primary Care Provider Allergies Active Allergy Reactions [...] coma, without long-term current use of insulin ([facility]),PCOS (polycystic ovarian syndrome),Menorrh agia with irregular cycle [...] THE MORNING 90 tablet 1 2024 Active medroxyPROGESTERo ne (DEPO-PROVERA) 150 mg/mL syringeIndication s:Encounter for initial prescription of injectable contraceptive INJECT 1ML INTO THE APPROPRIATE MUSCLE ONCE FOR1 DOSE 1 mL 2024 Active medroxyPROGESTERo ne (DEPO-PROVERA) 150 mg/mL syringeIndication s:Encounter for initial prescription of injectable contraceptive Inject 1 mL (150 mg total) into the appropriate muscle once for 1 dose. 1 mL 04/07 Discontinued cyanocobalamin (vitamin B-12) 1000 MCG tablet Take 1 tablet (1,000 mcg total) by mouth in the morning. 30 tablet 2 03/12 Discontinued methylphenidate HCl (JD PM) 20 mg capsule,del rel,ext rel sprinkIndications [...] organization. Date Type Department Care Team Description 04/06/2025 Refill [facility] [address] [place] [phone] Yanni Mauricio APRN-RITESH Encounter for initial prescription of injectable contraceptive 03/12/2025 Refill [facility] [address] [place] [phone] Yanni Mauricio APRN-CNP 03/08/2025 10:00 AM EDT Office Visit [facility] Department of [address] [phone] Alicia Singh APRN-CNP Gallbladder sludge (Primary Dx); Gastroesophageal reflux disease without esophagitis; Epigastric pain; Heartburn; Alternating constipation and diarrhea 03/08/2025 Telephone [facility] Department of [address] [employer] [address] [phone] Nesha Guerrero CNA 03/08/2025 Travel 03/01/2025 Travel 02/28/2025 Refill [facility] [address] [place] [address] [phone] Renetta Siu CNA Elevated blood pressure reading; Type 2 diabetes mellitus with hyperosmolarity without coma, without long-term current use of insulin ([facility]); PCOS (polycystic ovarian syndrome); Menorrhagia with irregular cycle 02/21/2025 Orders Only [facility] [address] [place] [phone] Yanni Mauricio APRN-CNP Elevated blood pressure reading (Primary Dx); Type 2 diabetes mellitus with hyperosmolarity without coma, without long-term current use of insulin ([facility]); PCOS (polycystic ovarian syndrome); Menorrhagia with irregular cycle 02/21/2025 Telephone [facility] [address] [place] [address] [phone] Stephanie Rowley CMA 02/16/2025 8:20 AM EDT Telemedicine [facility] [address] [place] [phone] Yanni Mauricio APRN-CNP Elevated blood pressure reading (Primary Dx); Type 2 diabetes mellitus with hyperosmolarity without coma, without long-term current use of insulin ([facility]) 02/15/2025 Travel 02/07/2025 Orders Only [facility] [address] [place] [phone] Yanni Mauricio APRN-CNP 02/07/2025 Telephone [facility] [address] [place] [address] [phone] Stephanie Rowley CMA 02/04/2025 8:38 PM EDT - 02/04/2025 11:20 PM EDT Emergency [facility] - Emergency [address] [place] [phone] Dawn Plummer DO Acute cystitis without hematuria (Primary Dx) Discharge Disposition: Home 02/04/2025 Travel 01/27/2025 Travel 01/23/2025 2:00 PM EDT Office Visit [facility] [address] [place] [phone] Yanni Mauricio APRN-CNP Gastroesophageal reflux disease without [...] coma, without long-term current use of insulin ([facility]); Chronic fatigue; Hx of iron deficiency anemia; [...] Maternal Aunt 3 Early Maternal Grandfather Elvis Rader Pancreatic cancer Maternal Grandfather Elvis Rader Brain cancer Maternal Grandmother Ct Rader Early Maternal Grandmother Ct Rader Lung cancer Maternal Grandmother Ct Rader Clotting disorder Maternal Uncle Madhav Rdaer Depression Maternal Uncle Madhav Rader Anxiety disorder Mother Meagan [place] Arthritis Mother Meagan [place] Clotting disorder Mother Meagan [place] Depression Mother Meagan [place] Diabetes Mother Meagan [place] Diabetes type II Mother Meagan [place] Heart disease Mother Meagan [place] Heart failure Mother Meagan [place] Hypertension Mother Meagan [place] Kidney disease Mother Meagan [place] Rheum arthritis Mother Meagan [place] Diabetes Paternal Grandfather Kunal Ronquillolter Diabetes type II Paternal Grandfather Kunal Ronquillolter Brain cancer Paternal Grandmother Relation Name Status Comments Cousin Maternal Aunt 1 Adilia Ortiz Alive Maternal Aunt 2 Allyson Rader Alive Maternal Aunt 3 Alive Maternal Grandfather Elvis Rader Alive Maternal Grandmother [place] Rader Alive Maternal Uncle Madhav Rader Alive Mother Meagan [place] Alive Paternal Grandfather Kunal Nicolas Alive Paternal [...] Recorded Do you need help finding a [facility] career center and/or a training [...] Visit [facility] [address] [facility] [place] [phone] Yanni Mauricio APRN-RITESH [address] [place] [address], [facility] [place] [phone] Health Maintenance Due Date Last Done Comments Diabetic Ophthalmology Exam 1994 DTaP,Tdap and Td Vaccines (5 - Tdap) 2005 10/10/1997, 02/19/1995, 1994, Additional history exists Adult BMI Follow Up Plan 2012 Diabetic Foot Exam 2012 Pap Smear 2015 COVID-19 Vaccine (5 - 4-2 5 season) 2024 06/05/2022, 07/04/2021, 12/26/2020, Additional [...] coma, without long-term current use of insulin ([facility]) TSH WITH REFLEX Routine 01/27/2025 11:00 AM EDT Healthcare maintenance Diabetes mellitus due to underlying condition with hyperosmolarity without coma, without long-term current use of insulin ([facility]) COMPREHENSIVE METABOLIC PANEL Routine 01/27/2025 11:00 AM EDT Healthcare maintenance Diabetes mellitus due to underlying condition with hyperosmolarity without coma, without long-term current use of insulin ([facility]) LIPID PROFILE Routine 01/27/2025 11:00 AM EDT [...] POCT , urine (02/04/2025 10:07 PM EDT) [facility] POC Urine Negative Negative 02/04/2025 10:07 PM EDT [facility] Urine 02/04/2025 10:0 7 PM EDT 02/04/2025 10:07 PM EDT us Dawn Plummer DO POINT OF CARE TEST ORDERABLE S Final Result [facility] [address] [place] [address], * (ABNORMAL) POCT Nursing Urine Macroscopic UA (02/04/2025 9:56 PM EDT) Pathologist [facility] POC Urine Specific [place] 1.015 1.010, 1.015, 1.020, 1.025 02/04/2025 9:52 PM EDT [facility] POC Urine Leukocyte Esterase Negative Negative 02/04/2025 9:52 PM EDT [facility] POC Urine Nitrite Positive(A) Negative 02/04/2025 9:52 PM EDT [facility] POC Urine pH 6.5 5.0, 6.0, 6.5, 7.0, 7.5, 8.0, 8.5, 5.5 02/04/2025 9:52 PM EDT [facility] POC Urine Protein Negative Negative 02/04/2025 9:52 PM EDT [facility] POC Urine Glucose Negative Negative 02/04/2025 9:52 PM EDT [facility] POC Urine Ketones Negative Negative 02/04/2025 9:52 PM EDT [facility] POC Urine Urobilinogen 0.2 E.U./dL 02/04/2025 9:52 PM EDT [facility] POC Urine Bilirubin Negative Negative 02/04/2025 9:52 PM EDT [facility] POC Urine Blood/HGB Large(A) Negative 02/04/2025 9:52 PM EDT [facility] Urine 02/04/2025 9:56 PM EDT 02/04/2025 9:52 PM EDT us Dawn Plummer DO POINT OF CARE TEST ORDERABLE S Final Result Performing Organization Address City/[facility]/ZIP Co de Phone Number [address] [place] [address], [place] * Extra Urine Culture (02/04/2025 9:48 PM EDT) Extra Tube Auto Resulted 02/04/2025 11:01 PM EDT [facility] Urine Urine specimen collection, clean catch / Unknown 02/04/2025 9:48 PM EDT 02/04/2025 9:56 PM EDT us April Bradshaw NURSE LDR-POSTMASTER URINE ORDERABLES Final Res ult [address] [place] [address], [place] * Extra Urine (02/04/2025 9:48 PM EDT) Extra Tube Auto Resulted 02/04/2025 11:01 PM EDT [facility] Urine Urine specimen collection, clean catch / Unknown 02/04/2025 9:48 PM EDT 02/04/2025 10:14 PM EDT us April Bradshaw NURSE LDR-POSTMASTER URINE ORDERABLES Final Res ult Performing Organization Address City/[facility]/ZIP Co de Phone Number [address] [place] [address], [place] * Light Blue Top (02/04/2025 9:00 PM EDT) Extra Tube Auto Resulted 02/04/2025 10:01 PM EDT [facility] Blood Venous blood / Unknown Venipuncture / Unknown 02/04/2025 9:00 PM EDT 02/04/2025 9:11 PM EDT us Dawn Plummer DO LAB BLOOD ORDERABLES Final R esult Performing Organization Address City/[facility] Co de Phone Number [address] [place] [address], [place] * (ABNORMAL) CBC auto differential (02/04/2025 8:56 PM EDT) Only the most recent of2 resultswithin the time period is included. WBC 11.2(H) 4 - 11 x10E9/L 02/04/2025 9:23 PM EDT [facility] RBC Count 5.22(H) 3.8 - 5.2 X10E12/L 02/04/2025 9:23 PM EDT [facility] Hemoglobin 13.2 11.7 - 15.5 g/dL 02/04/2025 9:23 PM EDT [facility] Hematocrit 39.8 35 - 47 % 02/04/2025 9:23 PM EDT [facility] MCV 76(L) 80 - 100 fL 02/04/2025 9:23 PM EDT [facility] MCH 25.2(L) 27 - 34 pg 02/04/2025 9:23 PM EDT [facility] MCHC 33.1 32 - 36 g/dL 02/04/2025 9:23 PM EDT [facility] RDW 15.9(H) 11.5 - 15 % 02/04/2025 9:23 PM EDT [facility] Platelet Count 322 150 - 450 X10E9/L 02/04/2025 9:23 PM EDT [facility] MPV 8.4 7 - 12 fL 02/04/2025 9:23 PM EDT [facility] Neutrophils % 79.7 % 02/04/2025 9:23 PM EDT [facility] Lymphocytes % 14.6 % 02/04/2025 9:23 PM EDT [facility] Monocytes % 4.3 % 02/04/2025 9:23 PM EDT [facility] Eosinophils % 0.9 % 02/04/2025 9:23 PM EDT [facility] Basophils % 0.5 % 02/04/2025 9:23 PM EDT [facility] Neutrophils Absolute (A) 9.0(H) 1.5 - 6.6 10*3/uL 02/04/2025 9:23 PM EDT [facility] Lymphocytes Absolute 1.6 1.0 - 3.5 10*3/uL 02/04/2025 9:23 PM EDT [facility] Monocytes Absolute 0.5 0.0 - 0.9 10*3/uL 02/04/2025 9:23 PM EDT [facility] Eosinophils Absolute 0.1 0.0 - 0.4 10*3/uL 02/04/2025 9:23 PM EDT [facility] Basophils Absolute 0.1 0.0 - 0.2 10*3/uL 02/04/2025 9:23 PM EDT [facility] Differential Type AUTOMATED DIFFERENTIAL 02/04/2025 9:23 PM EDT [facility] Blood Venous blood / Unknown Venipuncture / Unknown 02/04/2025 8:56 PM EDT 02/04/2025 9:11 PM EDT us Dawn Plummer DO LAB BLOOD ORDERABLES Final R esult [facility] [address] [place] [address], [place] * (ABNORMAL) Basic Metabolic Panel (02/04/2025 8:56 PM EDT) SODIUM 137 134 - 146 mmol/L 02/04/2025 9:28 PM EDT [facility] POTASSIUM 3.6 3.5 - 5.0 mmol/L 02/04/2025 9:28 PM EDT [facility] CHLORIDE 109 98 - 109 mmol/L 02/04/2025 9:28 PM EDT [facility] CARBON DIOXIDE 22 22 - 32 mmol/L 02/04/2025 9:28 PM EDT [facility] ANION GAP 6 5 - 15 mmol/L 02/04/2025 9:28 PM EDT [facility] BLOOD UREA NITROGEN 10 5 - 23 mg/dL 02/04/2025 9:28 PM EDT [facility] CREATININE 0.90 0.40 - 1.00 mg/dL 02/04/2025 9:28 PM EDT [facility] Comment:METHOD TRACEABLE TO IDMS STANDARD GLUCOSE 141(H) 65 - 99 mg/dL 02/04/2025 9:28 PM EDT [facility] CALCIUM 8.6 8.5 - 10.5 mg/dL 02/04/2025 9:28 PM EDT [facility] EGFR Non-Race Dependent 88 >=60 ml/min/1.7 3sq.m 02/04/2025 9:28 PM EDT [facility] Comment: eGFR not reported due to non-numeric value for Creatinine. Reported eGFR is based on the CKD-EPI 2020 equation that does not use a race coefficient. Blood Venous blood / Unknown Venipuncture / Unknown 02/04/2025 8:56 PM EDT 02/04/2025 9:11 PM EDT us Dawn Plummer DO LAB BLOOD ORDERABLES Final R esult [facility] [address] [place] [address], [place] * TSH with Reflex (01/27/2025 11:00 AM EDT) TSH 1.85 0.49 - 4.67 uIU/mL 01/27/2025 1:45 PM EDT [facility] Blood Venous blood / Unknown Venipuncture / Unknown 01/27/2025 11:00 AM EDT 01/27/2025 11:01 AM EDT us Yanni Mauricio NURSE LDR-POSTMASTER LAB BLOOD ORDERABLES Fi nal Result [facility] [address] [place] [address], [place] [phone] * (ABNORMAL) Iron and TIBC (01/27/2025 11:00 AM EDT) IRON 49(L) 50 - 170 ug/dL 01/27/2025 1:34 PM EDT [facility] TRANSFERRIN 245 168 - 336 mg/dL 01/27/2025 1:34 PM EDT [facility] IRON BINDING 343 250 - 425 ug/dL 01/27/2025 1:34 PM EDT [facility] IRON SATURATION 14(L) 15 - 50 % SATURATION 01/27/2025 1:34 PM EDT [facility] Blood Venous blood / Unknown Venipuncture / Unknown 01/27/2025 11:00 AM EDT 01/27/2025 11:01 AM EDT Yanni Mauricio NURSE LDR-POSTMASTER LAB BLOOD ORDERABLES Fi nal Result [facility] [address] [place] [address], * (ABNORMAL) Vitamin D 25 hydroxy (01/27/2025 11:00 AM EDT) VITAMIN D 25 HYD TOT 20.7(L) 30.0 - 100.0 ng/mL 01/27/2025 2:00 PM EDT [facility] Blood Venous blood / Unknown Venipuncture / Unknown 01/27/2025 11:00 AM EDT 01/27/2025 11:01 AM EDT Narrative [facility] - 01/27/2025 2:00 PM EDT Vitamin D status 25 [place] Vitamin D Deficiency <20 ng/mL Insufficiency 20-29 ng/mL Sufficiency 30-100 ng/mL Toxicity >100 ng/mL NOTE: A pediatric reference range has not been established by the geographic information systems manager of this kit. The [place] [employer] recommends a Vitamin D level of = or >20ng/mL in infants and children. [facility]anni [facility] BLOOD ORDERABLES [facility] Result [facility] [address] [place] [address], * (ABNORMAL) Hemoglobin A1c (01/27/2025 11:00 AM EDT) HEMOGLOBIN A1C 7.0(H) 4.4 - 5.6 % 01/27/2025 3:54 PM EDT [facility] Comment: ADA Guidelines Result HgbA1c Normal : less than 5.7 % Prediabetes : 5.7 % to 6.4 % Diabetes : > 6.4 % Use with caution in patients with abnormal hemoglobin variants as the half-life of red blood cells and in vivo glycation rates are affected. EST. AVERAGE GLUCOSE 154 mg/dL 01/27/2025 3:54 PM EDT [facility] Blood Venous blood / Unknown Venipuncture / Unknown 01/27/2025 11:00 AM EDT 01/27/2025 11:01 AM EDT Yanni Mauricio [facility] LAB BLOOD ORDERABLES Fi nal Result [facility] [address] [place] [address], * Vitamin B12 (01/27/2025 11:00 AM EDT) VITAMIN B12 190 180 - 914 pg/mL 01/27/2025 1:57 PM EDT [facility] Blood Venous blood / Unknown Venipuncture / Unknown 01/27/2025 11:00 AM EDT 01/27/2025 11:01 AM EDT Yanni Mauricio [facility] LAB BLOOD ORDERABLES Fi nal Result [facility] [address] [place] [address], * (ABNORMAL) Lipid panel (01/27/2025 11:00 AM EDT) CHOLESTEROL 139(L) 150 - 200 mg/dL 01/27/2025 1:34 PM EDT [facility] TRIGLYCERIDE 75 27 - 150 mg/dL 01/27/2025 1:34 PM EDT [facility] HDL CHOLESTEROL 31(L) >39 mg/dL 1:34 PM EDT [facility] Comment: HDL <40 mg/dL - High Risk HDL > or = 40mg/dL- Desirable HDL >60 mg/dL - Negative Risk LDL (CALC) 93 <130 mg/dL 01/27/2025 1:34 PM EDT [facility] Comment: LDL <100 mg/dL - Desirable LDL >160 mg/dL - High Risk CHOLESTEROL:HDL 4.5 1.0 - 5.0 1:34 PM EDT [facility] VERY LOW LIPOPROTEIN 15 0 - 30 mg/dL 01/27/2025 1:34 PM EDT [facility] Blood Venous blood / Unknown Venipuncture / Unknown 01/27/2025 11:00 AM EDT 01/27/2025 11:01 AM EDT Yanni Mauricio NURSE LDR-POSTMASTER LAB BLOOD ORDERABLES Fi nal Result [facility] [address] [place] [address], [place] [phone] * (ABNORMAL) Comprehensive metabolic panel (01/27/2025 11:00 AM EDT) SODIUM 142 134 - 146 mmol/L 01/27/2025 1:34 PM EDT [facility] POTASSIUM 4.0 3.5 - 5.0 mmol/L 01/27/2025 1:34 PM EDT [facility] CHLORIDE 109 98 - 109 mmol/L 01/27/2025 1:34 PM EDT [facility] CARBON DIOXIDE 24 22 - 32 mmol/L 01/27/2025 1:34 PM EDT [facility] ANION GAP 9 5 - 15 mmol/L 01/27/2025 1:34 PM EDT [facility] BLOOD UREA NITROGEN 8 5 - 23 mg/dL 01/27/2025 1:34 PM EDT [facility] CREATININE 0.77 0.40 - 1.00 mg/dL 01/27/2025 1:34 PM EDT [facility] Comment:METHOD TRACEABLE TO IDMS STANDARD GLUCOSE 144(H) 65 - 99 mg/dL 01/27/2025 1:34 PM EDT [facility] CALCIUM 9.0 8.5 - 10.5 mg/dL 01/27/2025 1:34 PM EDT [facility] TOTAL PROTEIN 6.8 6.0 - 8.0 g/dL 01/27/2025 1:34 PM EDT [facility] ALBUMIN 3.9 3.2 - 5.3 g/dL 01/27/2025 1:34 PM EDT [facility] ALKALINE PHOSPHATASE 71 39 - 130 U/L 01/27/2025 1:34 PM EDT [facility] AST 12 <=41 U/L 01/27/2025 1:34 PM EDT [facility] ALT 11 <=31 U/L 01/27/2025 1:34 PM EDT [facility] BILIRUBIN,TOTAL 0.4 0.3 - 1.2 mg/dL 01/27/2025 1:34 PM EDT [facility] EGFR Non-Race Dependent >90 >=60 ml/min/1.7 3sq.m 01/27/2025 1:34 PM EDT [facility] Comment: Reported eGFR is based on the CKD-EPI 2020 equation that does not use a race coefficient. Blood Venous blood / Unknown Venipuncture / Unknown 01/27/2025 11:00 AM EDT 01/27/2025 11:01 AM EDT us Yanni Mauricio NURSE LDR-POSTMASTER LAB BLOOD ORDERABLES Fi nal Result [facility] [address] [place] [address], [place] [phone] from Last 3 Months Insurance [employer] Advance Directives * Full Code (Latest Code Status on File) Date Activated Date Inactivated Comments 09/21/2020 9:29 PM 09/26/2020 5:08 PM Care Teams Policy Checker Relationship Specialty Start Date End Date Yanni Mauricio APRN-RITESH [address] [place] [address], [place] [phone] PCP - General Family Medicine 01/23/25
--- NOTE | 2025-04-07 14:06 | PC.NURSE ---
pain to right buttocks and leg, pt ambulating slow and steady
[2025-04-07 14:53] VITALS: BP 141/82; PULSE 88; O2SAT 98
== END 2025-04-07 15:13 | disposition home or self-care (01) ==
PROVIDERS: Emergency Provider Emergency Medicine; PCP Nurse Practitioner Family
DX: M54.31 Sciatica, right side (principal); M54.16 Radiculopathy, lumbar region; E66.01 Morbid (severe) obesity due to excess calories; Z68.44 Body mass index [BMI] 60.0-69.9, adult
CPT/HCPCS: 72131; 81001; 99284

== ENCOUNTER 2025-08-11 07:03 | Emergency (ER) | payer OTHER, SELFPAY ==
--- OUTSIDE RECORDS SUMMARY | 2020-05-15 13:26 | XMS_ITS | Continuity of Care Document ---
Author Organization [facility] Address [address] [place] [address] Phone Care Team Providers Care Internal Security Manager Name Role Phone Gaye GARCIA, Mercedes Unavailable Unavailable Allergies, Adverse Reactions, Alerts Substance Reaction Status Criticality No Known Allergies Active No Inform ation Medications Medication Instructions Dosage Effective Dates (start - stop) Status Comments metformin ER 500 mg tablet,extended release 24hr TAKE 2 TABLETS BY MOUTH EVERY DAY WITH THE EVENING MEAL - Active cetirizine 10 mg tablet TAKE 1 TABLET BY MOUTH EVERY DAY - Active mometasone 50 mcg/actuation nasal spray spray 2 spray by intranasal route every day in each nostril 100 MCG - Active Prozac 40 mg capsule take 1 capsule by o ral route every day in the morning - Active Prozac 20 mg capsule take 1 capsule by o ral route every day in the morning - Active buspirone 15 mg tablet take 1 tablet by oral route 3 times every day 15 MG - Active Inderal XL 120 mg capsule,extended release take 1 capsule by oral route every day at bedtime 120 MG - Active ProAir HFA 90 mcg/actuation aerosol inhaler inhale 2 puff by inhalation route every 4 - 6 hours as needed - Active hydroxyzine pamoate 50 mg capsule take 1 capsule by oral route 3 times every day as needed 50 MG - Active Nexplanon 68 mg subdermal implant - Active iron 18 mg tablet one tablet daily - Activ e Procedures Procedure Date GLYCOSYLATED HEMOGLOBIN TEST OFFICE/OUTPATIENT VISIT, NEW Advance Directives Directive Yes / No Effective Date File Name No Information Encounters Encounter Description Practice Location Reason(s) For Visit Diagnoses Date Provider Providers Copied on Encounter [facility], [address] [place] [address], [id number] , [place] tel: [phone] [facility] No Information 0 Missler QUALITY CONTROL ENGINEERING TECHNICIAN Mercedes. [address] [place], [place], [id number] , [place]. tel: [phone] [facility], [address] [place] [address], [id number] , [place] tel: [phone] [facility] No Information 0 Missler QUALITY CONTROL ENGINEERING TECHNICIAN Mercedes. [address] [place] [address], [id number] , [place]. tel: [phone] [facility], [address] [place] [address], [id number] , [place] tel: [phone] [facility] No Information 0 Missler QUALITY CONTROL ENGINEERING TECHNICIAN Mercedes. [address] [place] [address], [id number] , [place]. tel: [phone] OFFICE/OUTPA TIENT VISIT, [facility], [address] [place] [address], [id number] , [place] tel: [phone] [facility] Est Care (chief complaint) Body mass index (BMI) 60.0-69.9, adultPrediabetesPCOS (polycystic ovarian syndrome)Family history of anticardiolipin syndromeAnxiety disorder, unspecified type 0 Missler QUALITY CONTROL ENGINEERING TECHNICIAN Mercedes. [address] [place] [address], [id number] , [place]. tel: [phone] Family History Family Member Type Diagnosis Age At Onset Mother Problem Blood disorder Mother Problem hypercholesterolemia Mother Problem depression Mother Problem migraine Mother Problem Obesity Mother Problem osteoarthritis Mother Problem Allergies Mother Problem Diabetes mellitus Mother Problem Renal disease Father Problem Allergies Mother Problem Mental illness Mother Problem Irritable bowel syndrome Mother Problem Cardiovascular disease Mother Problem hypertension Payers Payer name Insurance type Covered republican ID Authoriza tion(s) Medicaid [facility] [id number] Social History Type Description Quantity Date Captured Comments Sex Female Smoking Status No Information Sexual Orientation Straight or heterosexual Gender Identity Female Chief Complaint And Reason For Visit No Information Reason For Referral Reason For Referral No Information Plan Of Treatment Date Type Action Status Goal Dietary manageme nt education, guidance, and counseling completed Future Order: Lab Order CBC With Differential/Platelet ([id number]), Ordered on: Ordered Future Order: Lab Order Comp. Me tabolic Panel (14) ([id number]), Ordered on: Ordered Future Order: Lab Order Lipid Pa lucy ([id number]), Ordered on: Ordered Future Order: Lab Order TSH+Free T4 ([id number]), Ordered on: Ordered Future Order: Lab Order Vitamin B12 ([id number]), Ordered on: Ordered Future Order: Lab Order Lupus An ticoag/Cardiolipin Ab ([id number]), Ordered on: Ordered Future Order: Lab Order Anticard iolipin Ab, IgG/M, Qn ([id number]), Ordered on: Ordered Future Order: Lab Order PT and P TT ([id number]), Ordered on: Ordered History Of Present Illness Encounter Date Complaint History Of Prese nt Illness Est Care Pt here today to establish care. pt would like a couple of referrals (ENT) and would like some blood work done. Pt states she has a family history of RA and a clotting disorder and would like to see about getting tests for them. Pt also needs some medication refills. Pt states she was going to [facility] in [place] for mental health medications. Pt states she missed too many apts and she was discharged. [facility] completed, [facility] Pt states she has previous diagnosis of anxiety and OCD, current medication regimen working really well for her. Has been on Prozac for about a year, BuSpar only about 6 mos takes nearly daily. Asks for list of mental health providers in area so that she can get her meds, but requests refills until then. 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 States it was low . Takes propranolol for migraines. -ANTICARDIOLIPID- Mother has this antibody and has had blood clots in the past. Mother takes Xarelto. Pt's aunt just recently from PE likely from same. Pt wishes to have testing done. Also wishes to discuss weight loss options. -ALLERGIES- C/o chronic sinus issues including pressure in head and headaches. Alternates ibuprofen or pseudofed nearly every day and Flonase intermittently. Functional Status Date Functional Assessmen t No Information Instructions Date Instruction Additional Infor mation Giving encouragement to exercise Related to Body mass index (BMI) 60.0-69.9, adult Dietary management e ducation, guidance, and counseling Related to Body mass index (BMI) 60.0-69.9, adult Assessments Type Assessment Date No Information Patient Care Teams Name Effective Dates (start - stop) Status Members No Information
--- OUTSIDE RECORDS SUMMARY | 2024-04-18 05:15 | XMS_ITS ---
Author Organization [facility] v[facility] Address [address] [place], [place] [id number] Care Team Providers Care Baker Name Role Phone Tiffany Pate Primary Care Provider Shyla Flanagan Unavailable [phone] REASON FOR VISIT plantar fascitis Social History Sex Assigned At : Social History Observation Description Sex Assigned At Female Encounters Encounter Location Date Provider Diagnosis Main [address] [place], [place] [id number] 04/18/2024 Shyla Flanagan Plan Of Treatment No Information Progress Notes * Karla BURCH CDOB:1994 (29 yo F)Acc No.[id number]:04/18/2024 Medical Note Patient: Joshua Karla dueñas :?BERLIN SalinasCDOB:1995???Age:28 Y???Sex:FemaleDate:04/18/2024hone:[phone]:[address] [place] [id number]:Tiffany Pate Subjective: * Chief Complaints: * P lantar fascitis * Electronic signature of EDDY Salinas on 08/11/2025 at 08:03 AM EST Sign off status: Pending * Provider: EDDY Reyna Date: 0 04/18/2024 Generated for Printing/Faxing/eTransmitting on:?08/11/2025 08:03 AM EST
--- OUTSIDE RECORDS SUMMARY | 2024-11-09 07:45 | XMS_ITS ---
Author Organization [facility] Address [address] [place], [place] [address] Care Team Providers Care Training And Development Rep Name Role Phone Tiffany Pate Primary Care Provider [phone] Maria Eugenia Jarrett Unavailable [phone] REASON FOR VISIT DM & HTN Social History Sex Assigned At : Social History Observation Description Sex Assigned At Female Encounters Encounter Location Date Provider Diagnosis Main [address] [place], [place] [id number] 11/09/2024 Maria Eugenia Scott Plan Of Treatment No Information Progress Notes * Karla BURCH CDOB:1994 (29 yo F)Acc No.[id number]:11/09/2024 Patient:?Karla Burch :?Maria Eugenia ScottDOB:1995???Age:29 Y???Sex: FemaleDate:11/09/2024Phone:[phone]:[address] [place] [phone]:Tiffany Pate Subjective: * Chief Complaints: * D M & HTN Billing Information: * Procedure Codes: * Electronic signature of LIANNA Mcghee on 08/11/2025 at 08:03 AM ESTSign off status: Pending * Provider: Adan Scott Date: 0 11/09/2024 Generated for Printing/Faxing/eTransmitting on:?08/11/2025 08:03 AM EST
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
--- OUTSIDE RECORDS SUMMARY | 2024-12-27 04:30 | XMS_ITS ---
Author Organization [facility] vices Address [address] [place], [place] [phone] Care Team Providers Care Poultry Farm Supervisor Name Role Phone Tiffany Pate Primary Care Provider REASON FOR VISIT Wellness Social History Sex Assigned At : Social History Observation Description Sex Assigned At Female Encounters Encounter Location Date Provider Diagnosis Main [address] [place], [place] [id number] 12/27/2024 Tiffany Pate Plan Of Treatment No Information Progress Notes * Karla BURCH CDOB:1994 (29 yo F)Acc No.[id number]:12/27/2024 Progress Notes Patient: Karla Simms :?Tiffany Pate MDDOB:1995???Age:29 Y???Sex: FemaleDate:12/27/2024Phone:[phone]:[address] [place] [place], [place] Subjective: * Chief Complaints: * W ellness Billing Information: * Procedure Codes: * Electronic signature of Tiffany Pate MD on 08/11/2025 at 08:03 AM ESTSign off status: Pending * Provider: Rocío Pate MD Date: 0 12/27/2024 Generated for Printing/Faxing/eTransmitting on:?08/11/2025 08:03 AM EST
[2025-08-11 07:08] VITALS: BP 160/91; PULSE 98; TEMP 36.7; O2SAT 100; BMI 65.2
--- NOTE | 2025-08-11 07:17 | US_ITS ---
The [address] [address] Patient Name: MARLI BURCH MRN: [id number] date: 1995 Sex: F Assigned Patient Location: ER Current Patient Location: .[facility] Accession/Order Number: [id number] Exam Date: 08/11/2025 07:20 Report Date: 08/11/2025 08:56 At the request of: ISMAEL CARDOZO MD Procedure: US right upper quadrant LIMITED RIGHT UPPER QUADRANT ABDOMINAL ULTRASOUND CLINICAL HISTORY: Epigastric/upper quadrant pain worsening over the past couple days. Vomiting. COMPARISON: None Evaluation is slightly limited by poor acoustic windows. The gallbladder is physiologically distended. There is gallbladder sludge and possibly small suspended gallstones. The wall is slightly thickened. No pericholecystic fluid is seen. No intra- or extrahepatic biliary dilatation is evident. The common duct measures 3 - 4 mm. The liver is normal in echogenicity. No intrahepatic masses are seen. There is appropriate hepatopetal flow within the main portal vein. The pancreas shows no significant sonographic abnormality. Evaluation of the right kidney reveals no hydronephrosis or fluid within Salvador's pouch. US/US right upper quadrant IMPRESSION: GALLBLADDER WALL THICKENING, SLUDGE AND POSSIBLE TINY STONES Impression dictated by: Gloria Andrew M.D. 08/11/2025 8:56 AM Dictation Location: [place] [address] Electronically authenticated by: [id number] Y Date: 08/11/2025 08:56
--- NOTE | 2025-08-11 07:17 | ED.GENADUL1 ---
HPI HPI - General Adult General Chief complaint: Abdominal Pain Stated complaint: ABDOMINAL PAIN Time Seen by Provider: 08/11/25 07:05 Source: patient Limitations: no limitations History of Present Illness HPI narrative: 29-year-old female presents to the emergency department for epigastric abdominal pain. She initially developed the symptoms years ago and had a workup for her gallbladder including an ultrasound years ago and that was negative. She has been treated for GERD and is scheduled to have upper endoscopy on August 16, in 5 days. She has been taking medications prescribed for this but it has not been helping recently. No trauma or fever. No constipation or diarrhea or blood in her stool. Related Data Home Medications ?Medication ?Instructions ?Recorded ?Confirmed alprazolam 0.5 mg tablet 0.5 mg PO BID PRN anxiety 04/05/25 04/07/25 bupropion HCl 150 mg 24 hr tablet, 150 mg PO DAILY 04/05/25 04/07/25 extended release fluoxetine 40 mg capsule 40 mg PO DAILY 04/05/25 04/07/25 cyanocobalamin (vitamin B-12) 1,000 mcg PO DAILY 04/07/25 04/07/25 1,000 mcg tablet dicyclomine 20 mg tablet 20 mg PO DAILY 04/07/25 04/07/25 fexofenadine 180 mg tablet 180 mg PO Q24H 04/07/25 04/07/25 methylphenidate HCl 18 mg 18 mg PO DAILY 04/07/25 04/07/25 tablet,extended release 24 hr pantoprazole 40 mg tablet,delayed 40 mg PO DAILY 04/07/25 04/07/25 release Previous Rx's ?Medication ?Instructions ?Recorded acetaminophen 650 mg 650 mg PO Q8H PRN pain #20 tabs 04/05/25 tablet,extended release (Tylenol Arthritis Pain) prednisone 50 mg tablet 50 mg PO DAILY 3 days #3 tabs 04/05/25 prednisone 10 mg tablet See Rx Instructions .Route 04/07/25 .COMPLEX #20 tabs Allergies Allergy/AdvReac Type Severity Reaction Status Date / Time No Known Drug Allergies Allergy Verified 08/11/25 07:07 Opioid HPI Opioid Management Most Recent Opioid Data: Last Pain Scale 7 Today, 08:16 Last MAR Pain Assessment Today, 08:16 Review of Systems ROS Narrative A ten point review of systems is negative except as noted above. PFSH PFSH Social History Little interest or pleasure in doing things: not at all Feeling down, depressed, or hopeless: not at all Exam Narrative Exam Narrative: Nurses note and vital signs reviewed General:The patient appears well and in no apparent distress.Patient is resting comfortably on cart. Skin:Warm, dry, no pallor noted.There is no rash noted. Her face is flushed. Head:Normocephalic, atraumatic Eye: Normal conjunctiva, no drainage Ears, Nose, Mouth, and Throat: oral mucosa is moist. Nares patent. Cardiovascular:Regular Rate and Rhythm Respiratory:Patient is in no distress, no accessory muscle use, lungs are clear to auscultation, no wheezing, rales or rhonchi Back:non-tender GI: Obese. Tenderness only in the epigastric area without mass or distention. No rebound or guarding. Musculoskeletal: The patient has no evidence of calf tenderness, no pitting edema, symmetrical pulses noted bilaterally Neurological:A&O, normal speech Psychiatric:Cooperative Constitutional Vital Signs, click to edit/add: Last Vital Signs Temp 98.0 F 08/11/25 07:08 Pulse 98 H 08/11/25 07:08 Resp 18 08/11/25 07:08 BP 160/91 H 08/11/25 07:08 Pulse Ox 100 08/11/25 07:08 Course Vital Signs Vital signs: Vital Signs Temperature 98.0 F 08/11/25 07:08 Pulse Rate 98 H 08/11/25 07:08 Respiratory Rate 18 08/11/25 07:08 Blood Pressure 160/91 H 08/11/25 07:08 Pulse Oximetry 100 08/11/25 07:08 Temperature 98.0 F 08/11/25 07:08 Pulse Rate 98 H 08/11/25 07:08 Respiratory Rate 18 08/11/25 07:08 Blood Pressure 160/91 H 08/11/25 07:08 Pulse Oximetry 100 08/11/25 07:08 Medical Decision Making [facility] Narrative Medical decision making narrative: The patient appears to have acute cholecystitis per gallbladder ultrasound reading by radiologist. Gallbladder wall is thickened. WBC is normal but her LFTs are mildly increased. I discussed the case with general surgeon on-call at [facility] who defers the patient to tertiary care center so that ERCP will be available. Findings are discussed with the patient and she is requesting to be transferred to [facility]. I have spoken to Dr. Apodaca, general surgery at [facility], who accepts the patient. She is agreeable and stable for transfer. Differential Diagnosis Differential Diagnosis: Biliary colic, acute cholecystitis, pancreatitis, hepatitis Lab Data Lab results reviewed: Yes I reviewed the patient's lab results Labs: Lab Results 08/11/25 Range/Units 07:20 WBC 8.5 (4.0-11.0) 10^3/uL RBC 5.39 (4.20-5.40) 10^6/uL Hgb 13.4 (12.0-16.0) g/dL Hct 43.3 (36.0-48.0) % MCV 80.3 L (81.0-99.0) fL MCH 24.9 L (26.7-34.0) pg MCHC 30.9 (29.9-35.2) g/dL RDW 14.5 (11.0-15.0) % Plt Count 327 (150-450) 10^3/uL MPV 9.9 (9.5-13.5) fL Neut % (Auto) 70.5 (43.0-75.0) % Lymph % (Auto) 21.0 (20.5-60.0) % Emmet % (Auto) 5.7 (1.7-12.0) % Eos % (Auto) 2.0 (0.9-7.0) % Baso % (Auto) 0.4 (0.2-2.0) % Neut # (Auto) 6.0 (1.4-6.5) 10^3/uL Lymph # (Auto) 1.8 (1.2-3.8) 10^3/uL Emmet # (Auto) 0.5 (0.3-0.8) 10^3/uL Eos # (Auto) 0.2 (0.0-0.7) 10^3/uL Baso # (Auto) 0.0 (0.0-0.1) 10^3/uL Abs Immat Gran (auto) 0.03 (0.00-0.03) 10^3/uL Imm/Tot Granulo (auto) 0.4 (0.0-0.5) % Sodium 140 (136-145) mmol/L Potassium 3.8 (3.5-5.1) mmol/L Chloride 102 (98-107) mmol/L Carbon Dioxide 26.6 (21.0-32.0) mmol/L Anion Gap 15.2 BUN 8.0 (7.0-18.0) mg/dL Creatinine 0.83 (0.55-1.02) mg/dL Est GFR ( Amer) >60 (>=60 mL/min/1.73m^2) Est GFR (Non-Af Amer) >60 (>=60 mL/min/1.73m^2) BUN/Creatinine Ratio 9.6 Glucose 141 H (74-106) mg/dL Calcium 9.4 (8.5-10.1) mg/dL Total Bilirubin 1.9 H (0.2-1.0) mg/dL Direct Bilirubin 1.2 H* (0.0-0.2) mg/dL AST 266 H (15-37) U/L ALT 227 H (14-59) U/L Alkaline Phosphatase 113 (46-116) U/L Total Protein 7.8 (6.4-8.2) g/dL Albumin 3.8 (3.4-5.0) g/dL Globulin 4.0 g/dL Albumin/Globulin Ratio 0.9 Amylase 26 (25-115) U/L Lipase 41.0 (16.0-77.0) U/L Imaging Data Gallbladder ultrasound: Radiologist's impression: ITS Impressions Upper Quadrant Ultrasound 08/11/25 07:17 IMPRESSION: GALLBLADDER WALL THICKENING, SLUDGE AND POSSIBLE TINY STONES Impression dictated by: Gloria Andrew M.D. 08/11/2025 8:56 AM Dictation Location: [place] [id number] Electronically authenticated by: [id number] Y Date: 08/11/2025 08:56 Discharge Plan Discharge Chief Complaint: Abdominal Pain Clinical Impression: Acute cholecystitis Patient Disposition: [facility] Time of Disposition Decision: 09:29 Discharge Location: [facility] Condition: Fair Mode of Transportation: EMS
[2025-08-11] MEDS: FAMOTIDINE/PF 20 MG/2 ML VIAL IV (07:31)
[2025-08-11 07:37] LABS: Hematocrit 43.3 % (36.0-48.0); Hemoglobin 13.4 g/dL (12.0-16.0); Immature Granulocytes Abs Auto 0.03 10^3/uL (0.00-0.03); Immature Granulocytes Pct Auto 0.4 % (0.0-0.5); Lymphocytes Absolute Auto 1.8 10^3/uL (1.2-3.8); Mean Corpuscular HGB Conc 30.9 g/dL (29.9-35.2); Mean Corpuscular Hemoglobin 24.9 pg (26.7-34.0); Mean Corpuscular Volume 80.3 fL (81.0-99.0); Platelet Count 327 10^3/uL (150-450); Red Blood Count 5.39 10^6/uL (4.20-5.40); White Blood Count 8.5 10^3/uL (4.0-11.0)
[2025-08-11 07:54] LABS: Alanine Aminotransferase 227 U/L (14-59); Albumin Globulin Ratio 0.9; Albumin Level 3.8 g/dL (3.4-5.0); Alkaline Phosphatase 113 U/L (46-116); Amylase 26 U/L (25-115); Anion Gap 15.2; Aspartate Amino Transferase 266 U/L (15-37); Blood Urea Nitrogen 8.0 mg/dL (7.0-18.0); Calcium 9.4 mg/dL (8.5-10.1); Carbon Dioxide 26.6 mmol/L (21.0-32.0); Chloride 102 mmol/L (98-107); Estimated GFR (African America >60 (>=60 mL/min/1.73m^2); Estimated GFR (Non-African Ame >60 (>=60 mL/min/1.73m^2); Globulin 4.0 g/dL; Glucose 141 mg/dL (74-106); Lipase 41.0 U/L (16.0-77.0); Potassium 3.8 mmol/L (3.5-5.1); Sodium 140 mmol/L (136-145); Total Protein 7.8 g/dL (6.4-8.2)
--- OUTSIDE RECORDS SUMMARY | 2025-08-11 08:02 | XMS_ITS | CCD ---
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 [address]BHULAKBBhpzdvrpWwijclyvZTBAhbEmwexs [facility] HospitalComtrinity health grand rap[facility] hospital on above:Result Comment: Interference from Buproprion or Labetalol may cause a positive result, confirmation available upon request. Ecstasy screening cut off value = 500 ng/mL This report is intended for use in clinical monitoring or management of patients.Performed By: #### DSU #### [facility] ([id number]) [address] [facility], [address] [place], [place] [address]JHLXWFOYIYglemgzhMnnhrlFLJTzzQrvemc [facility] HospitalComment on above:Result Comment: Methadone screening cut off value = 300 ng/mL.Performed By: #### DSU #### [facility] ([id number]) [address] [facility], [address] [place], [place] [address]ZGFTSLSNmfjfykrJkfjsrLTNGghUtabpd [facility] HospitalComment on above:Result Comment: Opiates screening cut off value = 300 ng/mL NOTE: This test is used for the detection of codeine, hydrocodone (>1000 ng/mL), morphine and hydromorphone (>900 ng/mL) in urine.Performed By: #### DSU #### [facility] ([id number]) [address] [facility] [address], [address] [place], [place] [address]IQBDAWRUSJdskjlzaGkrpnoBDEEmkHidhvf [facility] HospitalComtrinity health grand rap[facility] hospital on above:Result Comment: Oxycodone screening cut off value = 300 ng/mL NOTE: This test is used for the detection of oxycodone and oxymorphone in urine.Performed By: #### DSU #### [facility] ([id number]) [address] [facility], [address] [place], [place] [address]XXNKGLFZIDFMBJkiiildsMgmqvsEBUQqzGxkqkz [facility] HospitalComment on above:Result Comment: Phencyclidine screening cut off value = 25 ng/mL Performed By: #### DSU #### [facility] ([id number]) [address] [place] [address], [address] [place], [place] [address]UoQ IgG IA Ql (S)on 84-41-5171WIYSAHW AB SCREEN3.1 AIHigh<0.9 [facility] on above:Result Comment: POSITIVE: Antibody(IgG) detected. Indicates previous exposure to rubeola virus and immunity.Performed By: #### 6476-6, 87274-1 #### [facility] ([id number]) [address] [place] [address], [address] [place], [place] [address]WfA IgG IA Ql (S)on 10-32-2358DJLBN VIRUS IgG1.2 AIHigh<0.9 [facility] on above:Result Comment: Interpretation-------- <0.9 Negative 0.9 - 1.0 Equivocal >1.0 Positive Performed By: #### 6476-6, 64572-9 #### [facility] ([id number]) [address] [place] [address], [address] [place] [address] Vital Signs Date TimeVital SignValuePerforming XkgxturafIfasxmbt62-62-2804 15:00-0400Body bkocmi559.6 Abril Jon APRN-RAT POISONER Work Phone: [facility] HospitalGenomind [facility] HospitalLrfgig10-07-1347 15:00-0400Body mass index (BMI) [Ratio]65.43 kg/b5WtvyovsvoLuis Felipe Jon APRN-RAT POISONER Work Phone: [facility]2025 15:00-0400Body bxwmvdrmrti06.71 [degF]Luis Felipe Jon DIALYSIS REGISTERED NURSE-RAT POISONER Work Phone: [facility]2025 15:00-0400Body awlxua327 kgAledominik Jon DIALYSIS REGISTERED NURSE-RAT POISONER Work Phone: [facility]2025 15:00-0400Diastolic blood hexururh29 mm[Hg]Luis Felipe Jon DIALYSIS REGISTERED NURSE-RAT POISONER Work Phone: [facility]2025 15:00-0400Heart rate 110 /minAledominik Jon DIALYSIS REGISTERED NURSE-RAT POISONER Work Phone: [facility]2025 15:00-4422JoZ2% (BldA) [Mass fraction]97 %Luis Felipe Jon DIALYSIS REGISTERED NURSE-RAT POISONER Work Phone: [facility]2025 15:00-0400Systolic blood gzsydylg750 mm[Hg]Luis Felipe Jon DIALYSIS REGISTERED NURSE-RAT POISONER Work Phone: [facility]06-25-2025 10:20-0400Body iiuzkf744.6 cmAllnoreen Lloyditus DIALYSIS REGISTERED NURSE-RAT POISONER Work Phone: [facility]06-25-2025 10:20-0400Body mass index (BMI) [Ratio]63.79 kg/s9RvtdiquAlicia Lloyditus DIALYSIS REGISTERED NURSE-RAT POISONER Work Phone: [facility]06-25-2025 10:20-0400Body qxhrip223.65 kgAllnoreen Lloyditus DIALYSIS REGISTERED NURSE-RAT POISONER Work Phone: [facility]06-25-2025 10:20-0400Diastolic blood ytwudlhj45 mm[Hg]Alicianoreen Roth DIALYSIS REGISTERED NURSE-RAT POISONER Work Phone: [facility]06-25-2025 10:20-0400Heart rate 72 /minAlicia Lloyditus DIALYSIS REGISTERED NURSE-RAT POISONER Work Phone: [facility]06-25-2025 10:20-0400Systolic blood wyccztfm913 mm[Hg]Alicia Roth DIALYSIS REGISTERED NURSE-RAT POISONER Work Phone: [facility]05-12-2025 13:58-0400Body lfldie090.6 cmAluke Jon DIALYSIS REGISTERED NURSE-RAT POISONER Work Phone: [facility]05-12-2025 13:58-0400Body mass index (BMI) [Ratio]63.96 kg/i4Pizjogkghdominik Jon DIALYSIS REGISTERED NURSE-RAT POISONER Work Phone: [facility]05-12-2025 13:58-0400Body taaahgkbnhi67.29 [degF]Luis Felipe Jon DIALYSIS REGISTERED NURSE-RAT POISONER Work Phone: [facility]05-12-2025 13:58-0400Body cgwycy696.01 kgAledominik Jon DIALYSIS REGISTERED NURSE-RAT POISONER Work Phone: [facility]05-12-2025 13:58-0400Diastolic blood lezszjfy39 mm[Hg]Luis Felipe Jon DIALYSIS REGISTERED NURSE-RAT POISONER Work Phone: [facility]05-12-2025 13:58-0400Heart rate 86 /minAledominik Jon DIALYSIS REGISTERED NURSE-RAT POISONER Work Phone: [facility]05-12-2025 13:58-9314KvX3% (BldA) [Mass fraction]94 %Luis Felipe Jon DIALYSIS REGISTERED NURSE-RAT POISONER Work Phone: [facility]05-12-2025 13:58-0400Systolic blood ishkjspu026 mm[Hg]Luis Felipe Jon DIALYSIS REGISTERED NURSE-RAT POISONER Work Phone: [facility]07-06-2023 15:07-0400Body yohdblzzele79.8 [degF]GAETANO Dalton Work Phone: [facility]07-06-2023 15:07-0400 Body .18 kgGAETANO Dalton Work Phone: [facility]07-06-2023 15:07-0400 Diastolic blood mm[Hg]GAETANO Dalton Work Phone: 1(136)[address] [place], [place] 4360407-06-2023 15:07-0400 Heart rate99 /minEDEL-C Scott Dalton Work Phone: 1(716)[address] [place], [place] 4360407-06-2023 15:07-0400 Respiratory rate16 /minELSAC Scott Dalton Work Phone: [phone])[address] [place], [place] 4360407-06-2023 15:07-0400 SaO2% (BldA) [Mass fraction]97 %GAETANO Dalton Work Phone: 1(905)[address] [place], [place] 4360407-06-2023 15:07-0400 Systolic blood jnqwottz916 mm[Hg]GAETANO Dalton Work Phone: 1(303)[address] [place], [place] 4360404-25-2023 13:19-0400 Body mxrwxunoyuk41.8 [degF]GAETANO Dalton Work Phone: 1(419)[address] [place], [place] 4360404-25-2023 13:19-0400 Body gxiprz878.37 kgPAWilliam Dalton Work Phone: 1(596)[address] [place], [place] 4360404-25-2023 13:19-0400 Diastolic blood gpdlosoz62 mm[Hg]GAETANO Dalton Work Phone: 1(146)[address] [place], [place] 4360404-25-2023 13:19-0400 Heart rate98 /Reza Dalton Work Phone: 1(419)[address] [place], [place] 4360404-25-2023 13:19-0400 Respiratory rate16 /minELSAC Scott Dalton Work Phone: 1(201)[address] [place], [place] 4360404-25-2023 13:19-0400 SaO2% (BldA) [Mass fraction]99 %GAETANO Dalton Work Phone: 1(826)[address] [place], [place] 4360404-25-2023 13:19-0400 Systolic blood fqzjcliu661 mm[Hg]GAETANO Dalton Work Phone: 1(942)[address] [place], [place] 4360404-25-2023 13:06-0400 Body wjecxp469.1 Karen Dalton Work Phone: [facility]08-06-2022 12:30-0400 Body qweyyo961.1 Rain Flangaan Other [employer] Other 08-06-2022 12:30-0400Body mass index (BMI) [Ratio] 63.23 kg/g4AmjsqbAisha Flanagan Other [employer] Other 08-06-2022 12:30-0400Body vdxzwycyavf82.7 [degF]Aisha Liramond Other [employer] Other 08-06-2022 12:30-0400Body .37 kgAisha Flanagan Other [employer] Other 08-06-2022 12:30-2360RfU6% (BldA) [Mass fraction]99 % Aisha Flanagan Other [employer] Other Encounters Encounter DateEncounter TypeCare ProviderFacilityStart: 07-24-2025 End: 83-84-6081cogwizwytfPNVMWNDionte Meyers Woodland Memorial Hospitaltart: 06-26-2025 End: 92-50-9990DihuabLuwlidjpb Rojas DIALYSIS REGISTERED NURSE-RAT POISONER Work Phone: [facility] MedicineComment on above: Encounter for initial prescription of injectable contraceptiveStart: 05-30-2025 End: 27-21-2730Zfbvje Lex Cardozo DIALYSIS REGISTERED NURSE-RAT POISONER Work Phone: [facility] HealthStart: 05-01-2025 End: 62-78-6161Rdyjjw Zaid Jon DIALYSIS REGISTERED NURSE-RAT POISONER Work Phone: [facility] Family MedicineComment on above: Type 2 diabetes mellitus with hyperosmolarity without coma, without long-term current use of insulin ([facility]) (Primary Dx); Elevated blood pressure reading; PCOS (polycystic ovarian syndrome)Start: 04-27-2025 End: 38-98-5831Udyospb encounter statusPaddy Hang ZAMBRANO-RAT POISONER Work Phone: [facility] SystemStart: 04-27-2025 End: 01-92-2430Dxnxruit preventive med est patient 18-39 yrsAledominik Jon APRN-RAT POISONER Work Phone: [facility] Family MedicineComment on above: Immunization due (Primary Dx); Elevated blood pressure reading; Type 2 diabetes mellitus with hyperosmolarity without coma, without long-term current use of insulin ([facility]); PCOS (polycystic ovarian syndrome); Menorrhagia with irregular cycle; Wellness examination; Migraine without aura and without status migrainosus, not intractableStart: 04-27-2025 End: 40-18-4751brplzmpwveQINVGMVCAGreat [facility] PPGStart: 04-20-2025 End: 04-45-8051hxkbeyfflmKPMMVZKeokuk County Health Center HospitalStart: 04-11-2025 End: 75-95-5332JdqhgsIczvbwJay [facility] MedicineComment on above:Encounter for initial prescription of injectable contraceptiveStart: 04-06-2025 End: 00-46-6587MhuxglKjbbunitkJamil BAEZA Work Phone: [facility] MedicineComment on above: Encounter for initial prescription of injectable contraceptiveStart: 03-12-2025 End: 23-82-3492TfolxiUjnyzinqh Rojas APRN-RAT POISONER Work Phone: [facility] MedicineStart: 03-08-2025 End: 85-97-4448Inhxblgnw encounterNesha [facility], [facility] Department of [facility] HospitalStart: 03-08-2025 End: 83-08-2460rksyartcgrWVUOUUO RUBLAITUSJoint Township District Memorial Hospital HospitalStart: 03-08-2025 End: 24-51-6873Xckfph outpatient new 45 minutesAlicia Roth DIALYSIS REGISTERED NURSE-RAT POISONER Work Phone: [facility], [facility] Department of [facility] HospitalComment on above:Gallbladder sludge (Primary Dx); Gastroesophageal reflux disease without esophagitis; Epigastric pain; Heartburn; Alternating constipation and diarrheaStart: 03-01-2025 End: 63-89-5903trmjetojedXNEOHHKeokuk County Health Center HospitalStart: 02-28-2025 End: 88-75-7616MduqixByyrzqJay [facility] Family MedicineComment on above:Elevated blood pressure reading; Type 2 diabetes mellitus with hyperosmolarity without coma, without long-term current use of insulin ([facility]); PCOS (polycystic ovarian syndrome); Menorrhagia with irregular cycleStart: 02-21-2025 End: 96-76-6950Afqhal OnlyLuis Felipe Jon DIALYSIS REGISTERED NURSE-RAT POISONER Work Phone: [facility] Family MedicineComment on above: Elevated blood pressure reading (Primary Dx); Type 2 diabetes mellitus with hyperosmolarity without coma, without long-term current use of insulin ([facility]); PCOS (polycystic ovarian syndrome); Menorrhagia with irregular cycleStart: 02-16-2025 End: 15-17-5090mjirjdalhiVXPQRFXGJGreat [facility] PPGStart: 02-16-2025 End: 25-04-2042Rjylch outpatient visit 15 minutesLuis Felipe Jon DIALYSIS REGISTERED NURSE-RAT POISONER Work Phone: [facility] Phys[facility] Family MedicineComment on above: Elevated blood pressure reading (Primary Dx); Type 2 diabetes mellitus with hyperosmolarity without coma, without long-term current use of insulin ([facility])Start: 02-07-2025 End: 80-48-5996Xqghei Zaid Jon DIALYSIS REGISTERED NURSE-RAT POISONER Work Phone: [facility] Phys[facility] Family MedicineStart: 02-04-2025 End: 84-31-0552Pqwhhpscj department patient visitALEBayfront Health St. Petersburg Emergency Room HospitalStart: 09-80-1285vxjybeqiuqXIEKQGOUHVermont State Hospital HospitalStart: 31-57-3739Zvwchramn for general adult medical examination without abnormal findingsNEEMA [facility] Centertart: 01-23-2025 End: 78-73-1176Dvlthu outpatient new 45 minutesAnjanadominik Jon KENYA-RAT POISONER Work Phone: [facility] Physicians Family MedicineComment on above: Gastroesophageal reflux disease without esophagitis (Primary Dx); Bilateral carpal tunnel syndrome; Menorrhagia with irregular cycle; PCOS (polycystic ovarian syndrome); Healthcare maintenance; Encounter for initial prescription of injectable contraceptive; Migraine without aura and without status migrainosus, not intractable; Encounter for lipid screening for cardiovascular disease; Generalized anxiety disorder; Diabetes mellitus due to underlying condition with hyperosmolarity without coma, without long-term current use of insulin ([facility]); Chronic fatigue; Hx of iron deficiency anemia; Encounter to establish careStart: 01-23-2025 End: 54-82-6590Hfgxphk encounter statusAledominik Jon DIALYSIS REGISTERED NURSE-RAT POISONER Work Phone: [facility] SystemStart: 01-23-2025 End: 33-82-7877dfmgmfstnlRMEHTHLHAThe [facility]ulatory PPGStart: 51-14-2983Jnvqkhnvt for general adult medical examination without abnormal findingsCovenant Health [facility]elland Ambulatory PPGStart: 01-18-2025 End: 22-00-0877txyhwezhzoCAMIVY STEPHANIEChristus Santa Rosa Hospital [facility] San [facility] HospitalStart: 12-30-2024 End: 28-27-0475Hqykajjpi department patient visitCOMMUNCLEVELAND CL[facility]IC [facility]icK[facility] HospitalStart: 12-28-2024 End: 93-05-0178wdhtjegvfeWNRWVR NOEL [facility] Centertart: 11-30-2024 End: 12-31-7820ahmiszmagcRZOWIK NOEL [facility] HospitalStart: 11-24-2024 End: 98-05-1804gtkdugckrwFESQWQIM [facility] Hospitaltart: 11-21-2024 End: 72-46-9091glsgumovlcNTPGCA NOEL JEZAKProMedica Woodland Memorial Hospitaltart: 10-24-2024 End: 46-34-8118sxwjiojqkz036 [facility] Centertart: 10-13-2024 End: 60-88-1301ugbalzejfsPTHYYI NOEL JEZAKPThe Jewish Hospitaltart: 08-04-2024 End: 63-40-3135ztrtcbbxkyGMDOYV NOEL JEZACleveland Clinic Medina Hospitaltart: 08-03-2024 End: 35-85-8388Zapugeg encounter procedureMatias Saha PhD Work Phone: [facility] NEUROLOGYComment on above:ADHD (attention deficit hyperactivity disorder), inattentive type (CMS/HCC) (Primary Dx); ELKIN (obstructive sleep apnea); Depression, unspecified depression type (CMS/HCC); Generalized anxiety disorder (CMS/HCC); Obsessive-compulsive disorder, unspecified type (CMS/HCC); Agoraphobia (CMS/HCC)Start: 08-03-2024 End: 18-09-5251sjhpgiyfagATFDHTFYJuli Galarza AvailableStart: 07-18-2024 End: 07-51-2880Udfzxlm encounter Tam Saha PhD Work Phone: [facility] NEUROLOGYComment on above:ADHD (attention deficit hyperactivity disorder), inattentive type (CMS/HCC) (Primary Dx); ELKIN (obstructive sleep apnea); Depression, unspecified depression type (CMS/HCC); Generalized anxiety disorder (CMS/HCC); Obsessive-compulsive disorder, unspecified type (CMS/HCC); Agoraphobia (CMS/HCC)Start: 07-18-2024 End: 31-05-5739lrmesokvlnZZMKQPCA DENBESTENNot AvailableStart: 07-18-2024 End: 53-68-3623Ptgggp Kelli Saha PhD Work Phone: [facility] NEUROLOGYStart: 07-18-2024 End: 72-45-7097Eicqod Kelli Saha PhD Work Phone: [facility] NEUROLOGYStart: 49-27-0291qkorelabjs Facility:FTMCStart: 03-19-2023 End: 41-80-6697Dfkekbuyab RecurringGAETANO Dalton Work Phone: [facility] [place] Work Phone: Start: 03-19-2023 End: 18-55-4025yyotgbzbzuPCKimberlyC Scott Dalton Work Phone: [facility] Work Phone: Start: 01-06-2023 End: 35-05-3965bopmxpftpuXO-C Scott Dalton Work Phone: [facility] Work Phone: Start: 01-06-2023 End: 12-25-9729Efpkponuic RecurringPAWilliam Dalton Work Phone: [facility] [place] Work Phone: Start: 05-75-6400zicerrotowKH DOCTOR MISCFacility:H1 Start: 63-45-3368qaueqyngyfAK DEISY DOS SANTOSSFacility:W9Vgsha: 04-19-2022 End: 49-56-3817kynywwimlfGrhttq Dymond Other [facility] [employer] Other Start: 40-78-1900Rmiyoi outpatient new 20 minutes Aisha FlanaganFPG [facility] Juan C Procedures DateProcedureProcedure DetailPerforming ClinicianStart: 92-51-9144Bhluh depression screening assessmentLuis Felipe Jon DIALYSIS REGISTERED NURSE-RAT POISONER Work Phone: Start: 28-09-4488Rjeuo depression screening assessment Luis Felipe Jon DIALYSIS REGISTERED NURSE-RAT POISONER Work Phone: Plan of Treatment DateCare ActivityDetailAuthorStart: 64-67-2889Xvdgmvy ScreeningTobacco Screening [facility] SystemStart: 23-31-5645Dceip BMI Follow Up PlanAdult BMI Follow Up PlanMorrow County Hospitalca [facility] SystemStart: 23-46-6705Ecayt BMI ScreeningAdult BMI ScreeningMorrow County Hospitalca Health SystemStart: 66-01-5117Goucmsyyjd ScreeningDepression ScreeningMorrow County Hospitalca Health SystemStart: 57-42-9285Hvxmzia ScreeningTobacco ScreeningMorrow County Hospitalca Health SystemStart: 55-94-2973Zarxp BMI ScreeningAdult BMI ScreeningProCleveland Clinic Foundationca Health SystemStart: 73-47-4827Mxvplfs ScreeningTobacco ScreeningMorrow County Hospitalca Health SystemStart: 64-59-6885Yxkvwif ScreeningTobacco ScreeningMorrow County Hospitalca [facility] SystemStart: 82-81-9567Gndmv BMI ScreeningAdult BMI ScreeningMorrow County Hospitalca [facility] SystemStart: 41-72-0810Ixivdok ScreeningTobacco ScreeningMorrow County Hospitalca [facility] SystemStart: 50-76-3547Stwkt BMI ScreeningAdult BMI ScreeningMorrow County Hospitalca [facility] SystemStart: 98-55-4064Oebrukojim ScreeningDepression ScreeningMorrow County Hospitalca [facility] SystemStart: 20-66-0750Xhocpch ScreeningTobacco ScreeningSamaritan Hospital SystemStart: 09-05-2025 End: 77-46-1752Thptlrgie to same day surgery isaeik7209/05/2025 9:30 AM EST - 09/05/2025 10:00 AM EST Surgery [facility] [address] [place] [id number] Dominga Vance MD [address] [id number] ESOPHAGOGASTRODUODENOSCOPY DIAGNOSTIC [48840 (CPT )][facility] - EndoscopyComment on above:ESOPHAGOGASTRODUODENOSCOPY DIAGNOSTIC [38247 (CPT )] Start: 09-05-2025 End: 80-88-9345Eoyqgzrdltwsbucreulnsafymu transoral diagnostic ESOPHAGOGASTRODUODENOSCOPY DIAGNOSTIC Epigastric pain R10.13 Heartburn R12 09/05/2025 9:30 AM ESTFLOWER ENDOSCOPYStart: 13-50-2500Bwcdhujidk hospital visit by wdzbahsjd28/23/2025 9:30 AM EST Hospital Encounter [facility] -[facility] [address] [place] [address] oDminga Vance MD [address] [address] [facility] - EndoscopyStart: 08-22-2025 End: 39-42-9378Wnlfeal encounter qxwydmcxe81/09/2025 12:45 PM EST [facility] On [address] [address]KhuKomwwo [facility]: 08-02-2025 End: 59-46-0153Lqkbwcvn Ijvgxwj6808/02/2025 1:00 PM EST Clinical Support [facility] [address] [place] [address] Trupti Locke, DIALYSIS REGISTERED NURSE-RAT POISONER [address] [facility] [place], [place] [address] [facility] MedicineStart: 04-06-9593QFAJX-19 Vaccine ( season)COVID-19 Vaccine ( season)[facility] SystemStart: 90-91-2670Exrzgfefx vaccinationInfluenza VaccineProSt. Rita'S Hospital SystemStart: 04-27-2025 End: 47-53-7410Mgvajiz encounter eivitmdjq15/14/2025 3:00 PM EDT Office Visit [facility] [address] [place] [address] [place] [address] Luis Felipe Jon APRN-RAT POISONER [address] [place] [address], [place] [address] [facility] MedicineStart: 03-08-2025 End: 67-86-9534EJ Biliary ducts and Gallbladder Views for patency of biliary structures and ejection fraction W sincalide and W radionuclide IVNM hepatobiliary system imaging with pharmacologic agent Imaging Routine Gallbladder sludge Epigastric pain Expected: 03/08/2025, Expires: 03/08/2026 [facility] SystemComment on above:Expected: 03/08/2025, Expires: 03/08/2026Start: 03-08-2025 End: 39-84-2212Dolvvor encounter iuyblxnty47/25/2025 10:00 AM EDT Office Visit [facility], Department of [address] [address] Alicia Roth, DIALYSIS REGISTERED NURSE-RAT POISONER [address] [address] [facility], [facility]: 02-16-2025 End: 48-53-9394Vvztexnvjlge consultation with gwfnzbv6702/16/2025 8:20 AM EDT Telemedicine [facility] [address] [place] [address] Luis Felipe Jon, DIALYSIS REGISTERED NURSE-RAT POISONER [address] [place] [address] [facility] MedicineStart: 01-23-2025 End: 55-30-9872NGK with ReflexTSH with Reflex Lab Routine Healthcare maintenance Diabetes mellitus due to underlying condition with hyperosmolarity without coma, without long-term current use of insulin ([facility]) Expected: 01/23/2025 (Approximate), Expires: 01/23/2026[facility] SystemComment on above: Expected: 01/23/2025 (Approximate), Expires: 01/23/2026Start: 08-03-2024 End: 11-96-4682Yrydfoh encounter /20/2024 12:30 PM EST [facility] [address] [address] [place] [address]-597-[address] NEUROLOGYStart: 07-18-2024 End: 10-30-4610Qrudyno encounter rctheavpt06/04/2024 3:30 PM EST [facility] [address] [place] [address] Matias Saha, PhD [address] [place] [address] [facility] NEUROLOGYComment on above:ArrivedStart: 39-65-3080OJZTV-19 Vaccine ( season)COVID-19 Vaccine ( season)[facility] SeGan [employer] SystemStart: 78-50-1365Voypnmjch vaccinationInfluenza Vaccine (#1)[facility] CenterStart: 31-31-5592ThcpsxuddOhiohealth Grady Memorial [facility] Start: 35-97-2924RwiyihyzaSouthwest General Health Centertart: 01-22-2023 End: 67-93-4332FrvjiijfrSouthwest General Health Centertart: 88-16-2166KfpjygsgySouthwest General Health Centertart: 77-64-7723Eduvtvlab for malignant neoplasm of cervixPap SmearMorrow County HospitalSicubo St[facility] Medical Centertart: 12-86-3759Ywirh BMI Follow Up Plan Adult BMI Follow Up PlanMorrow County HospitalSicubo SystemStart: 17-26-1481Mkkfegkf foot examinationDiabetic Foot ExamProSt. Rita'S Hospital SystemStart: 21-02-7361IVnX,Tdap and Td Vaccines (5 - Tdap)DTaP,Tdap and Td Vaccines (5 - Tdap)[facility] [employer] SystemStart: 71-44-2747Ermyjzxe screeningDiabetic Ophthalmology ExamProSt. Rita'S Hospital SystemStart: 98-52-3637Ubrae screening for proteinUrine Microalbumin [facility] [employer] System End: 44-83-6846HVC W Auto Differential panel - BloodCBC auto differential Lab Routine Healthcare maintenance Chronic fatigue Hx of iron deficiency anemia 1 Occurrences starting 01/23/2025 until 01/23/2026[facility] SystemComment on above:1 Occurrences starting 01/23/2025 until 01/23/2026 End: 33-09-3442PikaaenpfjfNlvbbrfhcxu GI Routine Epigastric pain Alternating constipation and diarrhea 1 Occurrences wzlghgem48/25/2025 until 03/08/2026 [facility] SeGan Angel Prints SystemComment on above:1 Occurrences starting 03/08/2025 until 03/08/2026 End: 20-69-9915Dzyqxpfnoscrr metabolic 2000 panel - Serum or PlasmaComprehensive metabolic panel Lab Routine Healthcare maintenance Diabetes mellitus due to underlying condition with hyperosmolarity without coma, without long-term current use of insulin ([facility]) 1 Occurrences starting 01/23/2025 until 01/23/2026ProCleveland Clinic FoundationSicubo SystemComment on above:1 Occurrences starting 01/23/2025 until 01/23/2026 End: 22-30-6986Xcmmzvynqynvcq vitamin b-12Vitamin B12 Lab Routine Healthcare maintenance Generalized anxiety disorder Chronic fatigue 1 Occurrences starting 01/23/2025 until 01/23/2026[facility] HospitalSicubo SystemComment on above:1 Occurrences starting 01/23/2025 until 01/23/2026 End: 62-75-6975DhfmvtxjlnoqkkynwcvwzmpwchWJZ GI Routine Epigastric pain Heartburn 1 Occurrences starting 03/08/2025 until 03/08/2026[employer] Work Phone: Comment on above:1 Occurrences starting 03/08/2025 until 03/08/2026 End: 17-54-0005Mglyunnhoj A1c/Hemoglobin.total in BloodHemoglobin A1c Lab Routine Healthcare maintenance Diabetes mellitus due to underlying condition with hyperosmolarity without coma, without long-term current use of insulin ([facility]) 1 Occurrences starting 01/23/2025 until 01/23/2026M[facility] HospitalSicubo SystemComment on above:1 Occurrences starting 01/23/2025 until 01/23/2026 End: 47-58-5120Irue and TIBCIron and TIBC Lab Routine Healthcare maintenance Chronic fatigue Hx of iron deficiency anemia 1 Occurrences starting 01/23/2025 until 01/23/2026ProCleveland Clinic FoundationSicubo SystemComment on above:1 Occurrences starting 01/23/2025 until 01/23/2026 End: 84-29-8001Lkilb panelLipid panel Lab Routine Healthcare maintenance Encounter for lipid screening for cardiovascular disease 1 Occurrences starting 01/23/2025 until 01/23/2026[facility] HospitalGenomind Work Phone: Comment on above:1 Occurrences starting 01/23/2025 until 01/23/2026 End: 59-27-5971Cvwtypy D 25 hydroxyVitamin D 25 hydroxy Lab Routine Healthcare maintenance Generalized anxiety disorder Chronic fatigue 1 Occurrences starting 01/23/2025 until 01/23/2026[facility] SystemComment on above:1 Occurrences starting 01/23/2025 until 01/23/2026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 Phone: [facility] HospitalXfxvms02-16-8795kfiuaomho virus vaccine, unspecified formulationAlexandra Jon DIALYSIS REGISTERED NURSE-RAT POISONER Work Phone: [facility] HospitalYeahip71-66-5290wlyxkntfq virus vaccine, unspecified formulationMatias Saha PhD Work Phone: [facility] CenterGtvulakklh71-91-3779toplmugml, injectable, quadrivalent, preservative freeAlexandra Jon DIALYSIS REGISTERED NURSE-RAT POISONER Work Phone: [facility] Payers DatePayer CategoryPayerPolicy [id number] Managed Care - [facility] [id number] 76-41-1792Xaopfdj Health InsuranceAMBETTER OBEY [id number] 53-74-5731Olknirp Health [id number] 2.840.1.970339.3.57[id number] 2.0.1.276948.3.57[id number] 2.0.1.440462.3.57[id number] 2.0.1.305271.3.57[id number] 2.16840.1.336242.3.57[id number] 2.16840.1.924408.3.57[id number] 2.840.1.085226.3.57[id number] 2.16840.1.077689.3.57[id number] 2.16.840.1.747965.3.57[id number] 2.16.840.1.417024.3.57[id number] 2.16840.1.207696.3.57[id number] 2.16840.1.189406.3.57[id number] 2.16840.1.107018.3.57[id number] 2.16840.1.847886.3.57[id number] 2.840.1.567615.3.57[id number] 2.16840.1.244847.3.57[id number] 2.16840.1.936958.3.57[id number] 2.840.1.011288.3.57[id number] 2.16840.1.176169.3.57[id number] 2.16840.1.275654.3.57[id number] 2.16840.1.790805.3.579.2.423670-01-7256Jutm-[id number] 2.[id number] 2.16.840.1.013109.3.579.2.531Unknown [id number] Social History DateTypeDetailFacilityStart: 09-24-2020 End: 52-60-3962Aqj Assigned At BirthSamaritan Hospital SystemStart: 12-29-2022 End: 79-93-7799Qbiojrn smoking status NHISNever smoked tobacco (finding) [facility] Centertart: 88-53-3712Mzs Assigned At BirthFemale [facility] Memorial HospitalTobacco smoking status NHISTobacco smoking consumption unknownMCKAY-DEE [facility] HealthcareStart: 70-23-7997Nww assigned at birthNot on fileMCKAY-DEE HOSPITAL CENTER HealthcareStart: 35-41-6915Cvqtgcy use and exposureSmokeless tobacco non-userSamaritan Hospital SystemStart: 01-23-2025 End: 63-25-2085Nnyssfluu beverage intakeEx-drinker (finding)[facility] Hospitaltart: 09-24-2020 End: 14-02-1826Fxemejc of Social functionMartins Ferry HospitalHow hard is it for you to pay for the very basics like food, housing, medical care, and heating Somewhat hardMartins Ferry HospitalAdolescent depression screening assessment0 [facility] SeGan Angel Prints [facility] Centertart: 01-92-7374Bzzuuzjbu72BeeXnsvbz Health SystemStart: 51-63-3887JfeNhhqjx (finding)[facility] appAttach Goals DatePatient GoalDesired Activity/State Clinical Notes 04-19-2022 to 04-27-2025 Note Date & OaumQktkTzagnrpx56-00-4535 History of Present illness Narrative* Luis Felipe Jon, KENYA-RITESH - 04/27/2025 3:00 PM EDT Subjective Patient ID: Karla Burch is a 29 y.o. female. GALINA Acosta presents to the office for wellness and follow up. Continues with headaches/ migraines - rizatriptan, sumatriptan, fioricet, not very effective in thepast, two triptans have not been effective. topamax in the past has not been effective. She continues on propranolol for preventative, however she continues with headaches that are occurring at least 4 times monthly. Reports she notices Headaches are occurring more in the afternoon, usually around 5 pm. She does get eye strain migraines, but this feels different. Typically headaches are more on one side of head, internal, behind one eye. Stabbing pain. She is sensitive to light, she does know this causes migraines as well,however she ensure to implement lifestyle modifications for sun. She has been on Effexor, Cymbalta, and amitriptyline for migraine prevention and she reports these did not help migraines either. Ubrelvy was helpful, however, insurance did not cover. Sample of qulipta was also helpful. She is working with [facility] and is changing vNoveloe to concerta, it did cause increasaed anxiety. Health care team: PCP Psych- [facility] Rheumatololgy - hydroxychlorquine, prednisone PRN Autoimmune diagnosis, palindromic rheumatism Gi- gallbladder, The following portions of the patient's history were reviewed and updated as appropriate: allergies, current medications, past family history, past medical history, past social history, past surgicalhistory, problem list, and medication reconciliation was completed including current medication andpost discharge medication. Review of Systems Constitutional: Negative. Negative for chills, diaphoresis, fatigue, fever and unexpected weight change. HENT: Negative. Eyes: Negative. Respiratory: Negative. Negative for cough, chest tightness, shortness of breath and wheezing. Cardiovascular: Negative. Negative for chest pain, palpitations and leg swelling. Gastrointestinal: Negative. Negative for abdominal pain, diarrhea, nausea and vomiting. Endocrine: Negative for polydipsia, polyphagia and polyuria. Genitourinary: Negative for difficulty urinating, frequency, hematuria and urgency. Musculoskeletal: Negative for arthralgias, gait problem, joint swelling and neck pain. Skin: Negative. Neurological: Positive for headaches. Negative for dizziness, syncope, weakness, light-headedness and numbness. Psychiatric/Behavioral: Negative for self-injury and suicidal ideas. The patient is nervous/anxious. Objective Physical Exam Vitals and nursing note reviewed. Constitutional: General: She is not in acute distress. Appearance: Normal appearance. She is well-developed. She is not ill-appearing. HENT: Head: Normocephalic and atraumatic. Right Ear: Tympanic membrane, ear canal and external ear normal. Left Ear: Tympanic membrane, ear canal and external ear normal. Nose: Nose normal. Mouth/Throat: Mouth: Mucous membranes are moist. Pharynx: Oropharynx is clear. Eyes: Extraocular Movements: Extraocular movements intact. Pupils: Pupils are equal, round, and reactive to light. Neck: Vascular: No carotid bruit. Cardiovascular: Rate and Rhythm: Normal rate and regular rhythm. Pulses: Normal pulses. Heart sounds: Normal heart sounds. No murmur heard. Pulmonary: Effort: Pulmonary effort is normal. No respiratory distress. Breath sounds: Normal breath sounds. No wheezing, rhonchi or rales. Chest: Chest wall: No tenderness. Abdominal: General: Bowel sounds are normal. Palpations: Abdomen is soft. Tenderness: There is no abdominal tenderness. Musculoskeletal: General: Normal range of motion. Cervical back: Normal range of motion and neck supple. No rigidity or tenderness. Right lower leg: No edema. Left lower leg: No edema. Lymphadenopathy: Cervical: No cervical adenopathy. Skin: General: Skin is warm and dry. Capillary Refill: Capillary refill takes less than 2 seconds. Findings: No rash. Neurological: General: No focal deficit present. Mental Status: She is alert and oriented to person, place, and time. Motor: No weakness. Psychiatric: Mood and Affect: Mood normal. Behavior: Behavior normal. Assessment/Plan Health maintenance reviewed. Discussed cervical cancer screening with PAP- declines need, pt reports not sexually active. Declines DM foot exam today. Up to date on dental and vision exams. Up to date on tdap, last received sometime in her 20's. Patient noted to have elevated BMI and the following intervention(s) were applied: encouragement toexercise. Samples Provided today for Ubrelvy. For insurance purposes we will attempt to send in ajovy for migraine prevention. We will again attempt to send in GLP 1 medication to aid in diabetes control and weight management. Karla was seen today for wellness. Diagnoses and all orders for this visit: Immunization due - COVID-19, mRNA, LNP-S, PF, tori-sucrose, 30 mcg/0.3 mL Elevated blood pressure reading - Discontinue: dulaglutide (TRULICITY) 0.75 mg/0.5 mL pen injector; Inject 0.5 mL (0.75 mg total) under the skin every 7 days. Type 2 diabetes mellitus with hyperosmolarity without coma, without long-term current use of insulin ([facility]) - Discontinue: dulaglutide (TRULICITY) 0.75 mg/0.5 mL pen injector; Inject 0.5 mL (0.75 mg total) under the skin every 7 days. PCOS (polycystic ovarian syndrome) - Discontinue: dulaglutide (TRULICITY) 0.75 mg/0.5 mL pen injector; Inject 0.5 mL (0.75 mg total) under the skin every 7 days. Menorrhagia with irregular cycle - Discontinue: dulaglutide (TRULICITY) 0.75 mg/0.5 mL pen injector; Inject 0.5 mL (0.75 mg total) under the skin every 7 days. Wellness examination - COVID-19, mRNA, LNP-S, PF, tori-sucrose, 30 mcg/0.3 mL Migraine without aura and without status migrainosus, not intractable - fremanezumab-vfrm (AJOVY AUTOINJECTOR) 225 mg/1.5 mL; Inject 1.5 mL (225 mg total) under the skinevery 28 days. - ubrogepant (UBRELVY) 100 mg tablet; Take 100 mg by mouth as needed (migraines). FELISHA Staples 05/02/25 0931 documented in this encounterMartins Ferry Hospital06-25-2025 Miscellaneous Notes* Telephone Encounter - Nesha Guerrero CNA - 03/08/2025 10:49 AM EDT 03/08/25 EGD & CLN by ROSSI at [facility]/, MAC, ASA 3 w /PAT. On Trulicity [...] been sent to the patients home address. * Telephone Encounter - Nesha Guerrero CNA - 03/08/2025 10:49 AM EDT 07/19/25 Pt's mother called and scheduled at on 09/05/25 @ 9:30, pt does not want the Colon done.. Mailed out egd instructions today. BR documented in this encounterMartins Ferry Hospital06-25-2025 Telephone encounter Note* Telephone Encounter - Nesha Guerrero CNA - 03/08/2025 10:49 AM EDT 03/08/25 EGD & CLN by ROSSI at [facility]/, MAC, ASA 3 w /PAT. On Trulicity needs held W/large volume prep, F/U 3 months after procedures Chronic GERD, const w/diarrhea, GB sludge) also no marijuna usage with Alicia. br [facility]06-25-2025 Telephone encounter Note* Telephone Encounter - Lexi Barrera - 03/08/2025 10:49 AM EDT Left a message on the patients voice mail to give the office a call back to schedule a EGD/Colonoscopy with Dr. Vance. My name and number was provided. [facility] [employer] [id number] Telephone encounter Note* Telephone Encounter - Lexi Barrera - 03/08/2025 10:49 AM EDT Second attempt, Left a message on the patients voice mail to give the office a call back to schedule a EGD/Colonoscopy with Dr. Vance. My name and number was provided. Reminder card has been sent to the patients home address. [facility] [employer] [id number] Telephone encounter Note* Telephone Encounter - Nesha Guerrero CNA - 03/08/2025 10:49 AM EDT 07/19/25 Pt's mother called and scheduled at on 09/05/25 @ 9:30, pt does not want the Colon done.. Mailed out egd instructions today. BR [facility]06-25-2025 History of Present illness Narrative* FELISHA Clarke - 03/08/2025 10:00 AM EDT [facility] New Patient Visit - History & Physical CHIEF COMPLAINT: Heartburn Patient would like an EDG ordered to see if she has an ulcer. Pain in abdominal and into back when stomach is empty and with certain foods. Family history of IBS HISTORY OF PRESENT ILLNESS: Karla Burch is a 29 y.o. female who has a PMHx of anxiety, back pain, depression, DM2, GERD, migraine, obesity, recurrent UTIs who presents today for initial evaluation. Karla was 13 minutes late to office visit today. Karla reports she has had GERD since she was a child. She has been on PPI for quite a few years. Previously on Omeprazole which did not help. Currently on Protonix 40 mg daily. Has also been on Carafate 1 g BID for the past 6 months since ER visit for symptoms. She has had heartburn for a long time. She has epigastric pain that radiates to her back. Pain sometimes worse on an empty stomach, sometimes has a in something that triggers. Frequently pain waking her from sleep at night. No LUQ or RUQ pain. Occasionally has bilious vomiting that helps relieve pain but not frequently. Reports gluten helps to soothe symptoms. Denies nausea, decreased appetite, early satiety, sore throat, hoarseness, dysphagia, odynophagia, unintentional weight loss, melena. Previously took NSAIDs frequently that also caused epigastric pain but stopped taking 1-2 years ago. Denies alcohol, tobacco/vape. Occasionally uses marijuana to help her sleep. She has constipation where she will not have a BM for 3-4 days usually followed by lots of episodesof diarrhea. Does not take anything on a regular basis but has used stool softeners in the past as needed. Denies bloody stools, incontinence, lower ab pain, nocturnal stools. No family hx IBD or CRC. Her mom had H.pylori and IBS. No prior EGD or colonoscopy. Has hypertension on medication. No hx VT, CHF, cardiac stents. No chest pain, palpitations, shortness of breath. Working on getting Trulicity approved to start. Diabetes managed by her PCP. PRIOR ENDOSCOPY PROCEDURES: None IMAGIN04/2024 CT A/P with contrast: No acute process within the abdomen or pelvis. Normal appearance of the pancreas [mild interstitialpancreatitis is possible] 02/04/25 CT A/P without contrast: 1. Punctate renal stones, no obstruction. 2. Diffuse high density fills the gallbladder lumen possibly diffuse sludge, no discrete stone, no wall thickening, no adjacent fluid. Consider right upper quadrant ultrasound correlation Past Medical History: Diagnosis Date Allergic Seasonal, dust mites Anxiety Back pain Depression Diabetes mellitus (CMS-HCC) GERD (gastroesophageal reflux disease) Migraine Obesity Recurrent UTI PREVIOUS ENDOSCOPY OR X-RAY PROCEDURES: As noted in the HPI Past Surgical History: Past Surgical History: Procedure Laterality Date PLANTAR FASCIA RELEASE Bilateral TONSILLECTOMY August 2000 Current Medications: Current Outpatient Medications: acetaminophen (TYLENOL EXTRA STRENGTH) 500 mg tablet, Take 2 tablets (1,000 mg total) by mouth every 6 (six) hours as needed for pain., Disp: 30 tablet, Rfl: 0 albuterol (PROVENTIL HFA;VENTOLIN HFA) 90 mcg/actuation inhaler, Inhale 2 puffs every 6 (six) hoursas needed for wheezing., Disp: , Rfl: ALPRAZolam (XANAX) 0.5 mg tablet, Take 1 tablet (0.5 mg total) by mouth daily as needed for anxiety., Disp: 30 tablet, Rfl: 0 atogepant (QULIPTA) 60 mg tablet, Take 60 mg by mouth in the morning., Disp: 90 tablet, Rfl: 1 buPROPion XL (WELLBUTRIN XL) 150 mg 24 hr tablet, Take 1 tablet (150 mg total) by mouth in the morning. Indications: anxiousness associated with depression., Disp: 90 tablet, Rfl: 3 busPIRone (BUSPAR) 30 mg tablet, Indications: repeated episodes of anxiety. Take 1 tablet by mouth in the morning. Take 1 tablet by mouth in the evening., Disp: 180 tablet, Rfl: 3 cholecalciferol 1,000 units tablet, Take 1 tablet (1,000 Units total) by mouth in the morning., Disp: , Rfl: cyanocobalamin (vitamin B-12) 1000 MCG tablet, Take 1 tablet (1,000 mcg total) by mouth in the morning., Disp: 30 tablet, Rfl: 2 dulaglutide (TRULICITY) 0.75 mg/0.5 mL pen injector, Inject 0.5 mL (0.75 mg total) under the skin every 7 days., Disp: 2 mL, Rfl: 0 fexofenadine (KOMAL) 180 mg tablet, Take 1 tablet (180 mg total) by mouth in the morning., Disp: , Rfl: FLUoxetine (PROzac) 40 mg capsule, Take 2 capsules (80 mg total) by mouth in the morning., Disp: 180 capsule, Rfl: 3 hydroxychloroquine (PLAQUENIL) 200 mg tablet, Take 2 tablets (400 mg total) by mouth in the morning., Disp: , Rfl: metFORMIN (GLUCOPHAGE) 500 mg tablet, Take 2 tablets (1,000 mg total) by mouth daily with breakfast., Disp: , Rfl: methylphenidate HCl (JORNAY PM) 20 mg capsule,del rel,ext rel sprink, Take 1 capsule by mouth nightly. Max Daily Amount: 1 capsule, Disp: 30 each, Rfl: 0 ondansetron ODT (ZOFRAN ODT) 4 mg disintegrating tablet, Dissolve 1 tablet (4 mg total) on tongue every 8 (eight) hours as needed for nausea for up to 10 doses., Disp: 10 tablet, Rfl: 0 pantoprazole (PROTONIX) 40 mg EC tablet, Take 1 tablet (40 mg total) by mouth in the morning. Indications: gastroesophageal reflux disease., Disp: 90 tablet, Rfl: 1 propranolol XL (INNOPRAN XL) 120 MG 24 hr capsule, Take 1 capsule (120 mg total) by mouth in the morning., Disp: , Rfl: sucralfate (CARAFATE) 1 gram tablet, Take 1 tablet (1 g total) by mouth in the morning and 1 tablet(1 g total) before bedtime., Disp: , Rfl: ubrogepant (UBRELVY) 100 mg tablet, Take 100 mg by mouth as needed (migraines)., Disp: 15 tablet, Rfl: 1 I reviewed and reconciled this patient's medication list today. The list included in this note is the most up to date list that I can attest to at this time based on the information that the patient has provided me and the electronic medical record. ALLERGIES: House dust mite SOCIAL HISTORY: Social History Tobacco Use Smoking status: Never Smokeless tobacco: Never Vaping Use Vaping status: Never Used Substance Use Topics Alcohol use: Not Currently Drug use: Never FAMILY HISTORY: Family History Problem Relation Age of Onset Anxiety disorder Mother Depression Mother Rheum arthritis Mother Heart failure Mother Kidney disease Mother Diabetes type II Mother Arthritis Mother Clotting disorder Mother Diabetes Mother Heart disease Mother Hypertension Mother Brain cancer Maternal Grandmother Early Maternal Grandmother Lung cancer Maternal Grandmother Pancreatic cancer Maternal Grandfather Early Maternal Grandfather Brain cancer Paternal Grandmother Diabetes type II Paternal Grandfather Diabetes Paternal Grandfather Bipolar disorder Cousin Depression Cousin Anxiety disorder Cousin Rheum arthritis Maternal Aunt Fibromyalgia Maternal Aunt Clotting disorder Maternal Uncle Depression Maternal Uncle Depression Maternal Aunt Early Maternal Aunt Early Maternal Aunt ASSESSMENTS: REVIEW OF SYSTEMS: See HPI, otherwise ROS as below CONSTITUTIONAL: No significant weight change, fatigue, fever, chills HEENT: No eye pain, difficulty swallowing, or painful swallowing RESPIRATORY: No coughing, shortness of breath, or wheezing CARDIOVASCULAR: No chest pain, palpitations, dyspnea on exertion, or edema GASTROINTESTINAL: No abdominal pain, nausea/vomiting, change in bowel habits, or blood in stools GENITOURINARY: No dysuria or hematuria INTEGUMENT/BREAST: No skin rashes or skin lesions HEMATOLOGIC/LYMPHATIC: No anemia or easy bruising ALLERGIC/IMMUNOLOGIC: No seasonal allergies, itching, or hay fever ENDOCRINE: No heat/cold intolerance, no diabetes MUSCULOSKELETAL: No joint/muscle pain or arthritis NEUROLOGICAL: No headache or seizures BEHAVIOR/PSYCH: No anxiety or depression PHYSICAL EXAM: Vitals: 03/08/25 1020 BP: 112/78 Pulse: 72 Weight: (!) 168.6 kg (371 lb 12.8 oz) Height: 162.6 cm (5' 4.02 ) Body mass index is 63.79 kg/m . CONSTITUTIONAL: Alert, well developed and well-nourished. No apparent distress. HEAD: Normocephalic, atraumatic, and without lymphadenopathy. EYES: Pupils equal, round and reactive to light; conjunctiva pink; no scleral icterus. ENT: Oral pharynx with moist mucus membranes. Neck supple. No thyromegaly. LUNGS: No increased work of breathing, good air exchange, clear to auscultation bilaterally CARDIOVASCULAR: Regular rate and rhythm, normal S1 / S2, no murmur noted and no edema ABDOMEN: Soft, non-distended and non-tender. Normal bowel sounds. No hepatosplenomegaly. SKIN: Warm and dry. No bruising or bleeding, no rashes and no jaundice. LYMPH: No cervical or supraclavicular adenopathy. MS: Normal range of motion, moves all 4 extremities spontaneously, and ambulates without difficulty. NEURO: Oriented to person, place, and time. No focal deficits. PSYCH: Normal mood and affect. Behavior is normal. DATA: CBC: Lab Results Component Value Date WBC 11.2 (H) 02/04/2025 HGB 13.2 02/04/2025 HCT 39.8 02/04/2025 MCV 76 (L) 02/04/2025 RDW 15.9 (H) 02/04/2025 RDW 14.9 05/13/2024 PLT 322 02/04/2025 CMP: Lab Results Component Value Date K 3.6 02/04/2025 CL 109 02/04/2025 CL 107 05/13/2024 CO2 22 02/04/2025 BUN 10 02/04/2025 GLU 141 (H) 02/04/2025 GLU 179 (H) 09/26/2020 08/28/22 09:39 03/18/23 17:37 01/27/25 11:00 Hemoglobin A1C Confirmation 6.4 6.6 (H) 7.0 (H) ASSESSMENT AND PLAN: Karla Burch is a 29 y.o. female who has a PMHx of anxiety, back pain, depression, DM2, GERD, migraine, obesity, recurrent UTIs who presents today for initial evaluation. Chronic GERD, Epigastric Pain Heartburn since childhood. Epigastric pain that radiates to her back for some time. Worse on an empty stomach and with some foods. Frequently waking from sleep at night Previously tried and failed: Omeprazole Currently taking: Protonix 40 mg daily + Carafate 1 g BID which controls sx well Previously using NSAIDs regularly; has been off for 1-2 years Mom has hx H.pylori 2. Chronic Constipation w/overflow diarrhea Will go up to 3-4 days w/o defecation followed by diarrhea Only uses stool softeners as needed 3. Possible diffuse Gallbladder Sludge Noted on 01/2025 CT A/P Discussed EGD and colonoscopy procedures, prep, purpose, benefits/risks including sedation complications, bleeding, infection, perforation, tear and patient in agreement with proceeding. EGD to evaluate for Barretts given chronic GERD, esophagitis, gastritis, H.pylori, ulcer, duodenitis, celiac disease. Colonoscopy to evaluate for diverticulosis, IBD, findings and transverse colon, polyps. HIDA scan to evaluate for biliary dyskinesia and sludge. Discussed will need preadmission testing given BMI and diabetes. Plan: Start MiraLax 1 capful daily - slowly increase to 2 capfuls daily if needed Given instructions if wants to do MiraLax bowel purge prior Water intake > 64 oz/day EGD and Colonoscopy by Dr. Vance at [facility]/[place], MAC, ASA 3 W/ PAT given BMI 63.79 No marijuana or edibles it least 24 hrs prior W/ large volume prep d/t constipation and DM2 (most recent A1c 7.0%) Working on getting started on Trulicity - will need to be held prior W/ esoph bx for Carlson's W/ gastric bx for H.pylori W/ duodenal bx for celiac disease Continue Carafate 2x/day Continue Protonix 40 mg daily, 20-60 minutes before breakfast HIDA Scan Follow up 2-3 months after procedures FELISHA Clarke [address] [place] [address] PH: [phone] ([place]) / [phone] ([place]) ([place]) / [phone] ([place]) HETAL/[place]ana Total time spent was 45 minutes: Preparing to see the patient (e.g., review of tests) Obtaining and/or reviewing separately obtained history Performing a medically appropriate examination and/or evaluation Counseling and educating the patient/family/caregiver Ordering medications, tests, or procedures This note is dictated with the use of M*Modal.Please note that this dictation was completed with computer voice recognition software. Quite often unanticipated grammatical, syntax, homophones, and other interpretive errors are inadvertently transcribed by the computer software. Please disregard these errors. Please excuse any errors that have escaped final proofreading. FELISHA Clarke 03/08/25 1104 * Dominga Vance MD - 03/08/2025 10:00 AM EDT I have reviewed the note and agree with the findings and plan. documented in this encounterMorrow County HospitalGenomind [facility] [id number] Instructions* Patient Instructions* FELISHA Clarke - 03/08/2025 10:00 AM EDT Start MiraLax 1 capful daily - slowly increase to 2 capfuls daily if needed Water intake > 64 oz/day EGD and Colonoscopy HIDA scan Continue Carafate 2x/day and Protonix 40 mg daily, 20-60 minutes before breakfast Follow up 2-3 months after procedures MiraLax bowel purge: -- Mix one 64 oz Gatorade or Propel with one bottle (238 grams (8.3 ounces)) of Miralax powder or generic polyethylene glycol and drink it all over the weekend (over a 12-24 hour period) when not going to be out documented in this encounterMartins [facility]erry Hospital06-10-2025 Miscellaneous Notes* Telephone Encounter - Stephanie Rowley CMA - 02/21/2025 9:44 AM EDT Patient called into office wanting to let PCP know that insurance did deny her Ozempic. Wanting to know what could be done to help this possible get approved. Please advise? * Telephone Encounter - FELISHA Staples - 02/21/2025 9:44 AM EDT I sent in Trulicity, another type of GLP 1 medication. After trialing this medication hopefully we can try to get Ozempic covered by insurance. Typically they want to see that she has trialed and failed alternatives before covering Ozempic. * Telephone Encounter - Stephanie Rowley CMA - 02/21/2025 9:44 AM EDT Called an informed patient of provider response. Verbalized understanding with patient. documented in this encounterMartins Ferry Hospital06-10-2025 Telephone encounter Note* Telephone Encounter - Stephanie Rowley CMA - 02/21/2025 9:44 AM EDT Patient called into office wanting to let PCP know that insurance did deny her Ozempic. Wanting to know what could be done to help this possible get approved. Please advise? [facility]06-10-[facility] Telephone encounter Note* Telephone Encounter - FELISHA Staples - 02/21/2025 9:44 AM EDT I sent in Trulicity, another type of GLP 1 medication. After trialing this medication hopefully we can try to get Ozempic covered by insurance. Typically they want to see that she has trialed and failed alternatives before covering Ozempic. [facility] Telephone encounter Note* Telephone Encounter - Stephanie Rowley CMA - 02/21/2025 9:44 AM EDT Called an informed patient of provider response. Verbalized understanding with patient. [facility]06-05-[facility] History of Present illness Narrative* FELISHA Staples - 02/16/2025 8:20 AM EDT Subjective Patient ID: Karla Burch is a 29 y.o. female. Video Visit via Real-time Synchronous Audiovisual Provider Location: [facility] [address] [place] [id number] Patient Location: Patient's home Video Visit Consent Statement: I discussed risks, benefits, and alternatives of a real-time synchronous audiovisual consultation with the patient (and any accompanying persons) including the risks that the patient's personal health details and medical records will be discussed over real-time, synchronous, interactive video/audio/telecommunication technology, the visit will not be recorded withoutthe express consent of both the provider and the patient, and that there are some limitations compared to [id number] evaluations. The patient consented to the presence of additional virtual and/or in-person participants. We elected to proceed. GALINA Acosta presents via video visit to discuss results. She went to ED on 02/04/[address] abdomen/pelvis which shows punctate renal stones bilaterallywith no obstruction. There was also diffuse high density feels in the gallbladder lumen and possibly diffuse sludge, no discrete stone, no wall thickening, no adjacent fluid. Radiologist recommended considering right upper quadrant ultrasound. She was discharged to home with Keflex and Pyridium forUTI. Reports this pain is improving. She is not interested in completing follow up at this time. She also had wellness labs completed on 01/27/2025 which showed vitamin-D low at 20.7, in which shewas advised to increase vitamin-D to 2000 units daily by Psychiatry. Vitamin-B was also low end of normal at 190, iron and iron saturation were 1 point low, CBC did not necessarily show anemia but itdid show microcytic, hypochromic anemia. Hemoglobin A1c is elevated at 7.0% indicating diabetes diagnosis. This is an increase from 6.6% on 03/18/2023, TSH normal, CMP shows elevated glucose otherwise unremarkable, lipid profile unremarkable. The following portions of the patient's history were reviewed and updated as appropriate: allergies, current medications, past family history, past medical history, past social history, past surgicalhistory, problem list, and medication reconciliation was completed including current medication andpost discharge medication. Review of Systems Constitutional: Negative. Respiratory: Negative. Cardiovascular: Negative. Gastrointestinal: Negative. Objective Physical Exam Constitutional: Appearance: Normal appearance. Comments: Video visit Neurological: Mental Status: She is alert. Psychiatric: Mood and Affect: Mood normal. Behavior: Behavior normal. Comments: Interacting and answering appropriately. Assessment/Plan Hemoglobin A1c is elevated at 7.0% indicating diabetes diagnosis. This is an increase from 6.6% on 03/18/2023. She has been on metformin 1000 units daily and she has been working on lifestyle modifications with diet and exercise. However, despite lifestyle modifications and taking the medications routinely hemoglobin A1c has increased. She denies personal or family history of medullary thyroid cancer and she reports she has never hadpancreatitis. We discussed getting started on GLP 1 medication and she is agreeable. I think she would benefit from this medication as she has history of PCOS, obesity, anxiety and depression, and diabetes. Continue with vitamin-D supplement at 2000 units daily and vitamin-B 1000 mcg once daily sent in. Repeat labs at wellness. Keep scheduled wellness. Karla was seen today for discuss lab results. Diagnoses and all orders for this visit: Elevated blood pressure reading - semaglutide (OZEMPIC) 0.25 mg or 0.5 mg (2 mg/3 mL) pen injector; Inject 0.25 mg under the skin every 7 days. 0.25 mg once weekly for 4 weeks. And then increase to 0.5 mg once weekly for four weeks. Type 2 diabetes mellitus with hyperosmolarity without coma, without long-term current use of insulin ([facility]) - semaglutide (OZEMPIC) 0.25 mg or 0.5 mg (2 mg/3 mL) pen injector; Inject 0.25 mg under the skin every 7 days. 0.25 mg once weekly for 4 weeks. And then increase to 0.5 mg once weekly for four weeks. Other orders - cyanocobalamin (vitamin B-12) 1000 MCG tablet; Take 1 tablet (1,000 mcg total) by mouth in the morning. FELISHA Staples 02/16/25 0955 documented in this encounterMorrow County HospitalExamify05-27-2025 Miscellaneous Notes* Telephone Encounter - Stephanie Rowley CMA - 02/07/2025 9:33 AM EDT Patient called into office stating she was seen in ER on 02/04 and given antibiotics. Stated that she now has a yeast infection from these. Wanting to know what PCP recommends. Please advise? * Telephone Encounter - FELISHA Staples - 02/07/2025 9:33 AM EDT I sent in vaginal cream. * Telephone Encounter - Stephanie Rowley CMA - 02/07/2025 9:33 AM EDT Called and informed patient of Rx sent in. documented in this encounterMartins Ferry Hospital05-27-2025 Telephone encounter Note* Telephone Encounter - Stephanie Rowley CMA - 02/07/2025 9:33 AM EDT Patient called into office stating she was seen in ER on 02/04 and given antibiotics. Stated that she now has a yeast infection from these. Wanting to know what PCP recommends. Please advise? [facility]05-27-[facility] Telephone encounter Note* Telephone Encounter - FELISHA Staples - 02/07/2025 9:33 AM EDT I sent in vaginal cream. [facility]05-27-[facility] Telephone encounter Note* Telephone Encounter - Stephanie Rowley CMA - 02/07/2025 9:33 AM EDT Called and informed patient of Rx sent in. [facility]05-12-[facility] History of Present illness Narrative* FELISHA Staples - 01/23/2025 2:00 PM EDT Subjective Patient ID: Karla Burch is a 29 y.o. female. HPI Karla presents to the office to establish care. No concerns in particular today she just wanted to discuss a refill on the Depo shot. She reports she would be Due for wellness and labs as she has been without a PCP for a while. She was without insurance for a little bit, but would like to establish with rheumatica due to insurance. Hx: Diabetes- metformin Allergies- allera Migraines- rizatriptan, sumatriptan, fioricet, not very effective, two triptans have not been effective. topamax in the past has not been effective. propranolol for preventative. She gets headaches a few times a week, and turn in to migraines at least 3 times a month. Sinuses cause increased symptoms, and sensitivity to light exacerbates his symptoms as well. [facility] She had EMG completed with Dr. Roman a few years ago. Reports she has been diagnosed with carpal tunnel bilaterally. We will request records from EMG study. GERD-Protonix, carafate. She had referral to GI d/t GERD and abdominal pain. She has had GERD symptoms for many years but abdominal pain has been ongoing for about 1.5 years. She reports epigastric area pain and it goes to her back. Depression, Anxiety, ADHD- Vyvanse, Xanax, BuSpar, Wellbutrin, following with Psychiatry Autoimmune diagnosis, palindromic rheumatism- plaquenil, prednisone as needed. Following with rheumatology with [facility] Intermittent fatigue and arthralgia and myalgia. Hx of anemia, reports she received infusions of iron in the past. Patient Active Problem List Diagnosis Pneumonia due to COVID-19 virus Morbid obesity ([facility]) Mild episode of recurrent major depressive disorder Generalized anxiety disorder Gastroesophageal reflux disease without esophagitis Attention deficit hyperactivity disorder (ADHD), predominantly inattentive type Current Outpatient Medications on File Prior to Visit Medication Sig Dispense Refill acetaminophen (TYLENOL EXTRA STRENGTH) 500 mg tablet Take 2 tablets (1,000 mg total) by mouth every6 (six) hours as needed for pain. 30 tablet 0 albuterol (PROVENTIL HFA;VENTOLIN HFA) 90 mcg/actuation inhaler Inhale 2 puffs every 6 (six) hours as needed for wheezing. ALPRAZolam (XANAX) 0.5 mg tablet Take 1 tablet (0.5 mg total) by mouth daily as needed for anxiety.30 tablet 0 buPROPion XL (WELLBUTRIN XL) 150 mg 24 hr tablet Take 1 tablet (150 mg total) by mouth in the morning. Indications: anxiousness associated with depression. 90 tablet 3 busPIRone (BUSPAR) 30 mg tablet Indications: repeated episodes of anxiety. Take 1 tablet by mouth in the morning. Take 1 tablet by mouth in the evening. 180 tablet 3 cholecalciferol 1,000 units tablet Take 1 tablet (1,000 Units total) by mouth in the morning. fexofenadine (KOMAL) 180 mg tablet Take 1 tablet (180 mg total) by mouth in the morning. FLUoxetine (PROzac) 40 mg capsule Take 2 capsules (80 mg total) by mouth in the morning. 180 capsule 3 hydroxychloroquine (PLAQUENIL) 200 mg tablet Take 2 tablets (400 mg total) by mouth in the morning. lisdexamfetamine (VYVANSE) 30 mg capsule Take 1 capsule (30 mg total) by mouth every morning. Max Daily Amount: 30 mg 30 capsule 0 metFORMIN (GLUCOPHAGE) 500 mg tablet Take 2 tablets (1,000 mg total) by mouth daily with breakfast. ondansetron ODT (ZOFRAN ODT) 4 mg disintegrating tablet Dissolve 1 tablet (4 mg total) on tongue every 8 (eight) hours as needed for nausea for up to 10 doses. 10 tablet 0 pantoprazole (PROTONIX) 40 mg EC tablet Take 1 tablet (40 mg total) by mouth in the morning. Indications: gastroesophageal reflux disease. propranolol XL (INNOPRAN XL) 120 MG 24 hr capsule Take 1 capsule (120 mg total) by mouth in the morning. rizatriptan COSMETOLOGY PROFESSOR (MAXALT-COSMETOLOGY PROFESSOR) 10 mg disintegrating tablet Take 1 tablet (10 mg total) by mouth once as needed for migraine. May repeat in 2 hours if unresolved. Do not exceed 30 mg in 24 hours. No current facility-administered medications on file prior to visit. Past Surgical History: Procedure Laterality Date PLANTAR FASCIA RELEASE Bilateral TONSILLECTOMY Family History Problem Relation Age of Onset Anxiety disorder Mother Depression Mother Bipolar disorder Cousin Depression Cousin Anxiety disorder Cousin The following portions of the patient's history were reviewed and updated as appropriate: allergies, current medications, past family history, past medical history, past social history, past surgicalhistory, problem list, and medication reconciliation was completed including current medication andpost discharge medication. Review of Systems Constitutional: Negative for chills, diaphoresis, fatigue, fever and unexpected weight change. HENT: Negative. Eyes: Negative. Respiratory: Negative for cough, chest tightness, shortness of breath and wheezing. Cardiovascular: Negative for chest pain, palpitations and leg swelling. Gastrointestinal: Negative for abdominal pain, diarrhea, nausea and vomiting. Endocrine: Negative for polydipsia, polyphagia and polyuria. Genitourinary: Positive for menstrual problem (Depo shot helps prevent periods from being heavy). Negative for difficulty urinating, frequency, hematuria and urgency. Musculoskeletal: Negative for arthralgias, gait problem, joint swelling and neck pain. Skin: Negative. Neurological: Positive for headaches. Negative for dizziness, syncope, weakness, light-headedness and numbness. Psychiatric/Behavioral: Negative for self-injury and suicidal ideas. Objective Physical Exam Vitals and nursing note reviewed. Constitutional: General: She is not in acute distress. Appearance: Normal appearance. She is well-developed. She is not ill-appearing. HENT: Head: Normocephalic and atraumatic. Right Ear: External ear normal. Left Ear: External ear normal. Nose: Nose normal. Neck: Vascular: No carotid bruit. Cardiovascular: Rate and Rhythm: Normal rate and regular rhythm. Pulses: Normal pulses. Heart sounds: Normal heart sounds. No murmur heard. Pulmonary: Effort: Pulmonary effort is normal. No respiratory distress. Breath sounds: Normal breath sounds. No wheezing, rhonchi or rales. Chest: Chest wall: No tenderness. Abdominal: General: Bowel sounds are normal. Palpations: Abdomen is soft. Musculoskeletal: General: Normal range of motion. Cervical back: Normal range of motion and neck supple. Right lower leg: No edema. Left lower leg: No edema. Skin: General: Skin is warm and dry. Capillary Refill: Capillary refill takes less than 2 seconds. Findings: No rash. Neurological: General: No focal deficit present. Mental Status: She is alert and oriented to person, place, and time. Motor: No weakness. Psychiatric: Mood and Affect: Mood normal. Behavior: Behavior normal. Assessment/Plan Care established. We will request records from [facility] from Dr. Roman's office. Referral placed to Orthopedics for carpal tunnel syndrome bilaterally. Referral placed back to Gastroenterology for GERD symptoms. Refill Protonix for now. She may continue with Carafate. Referral placed back to Women's Health for history of menorrhagia and irregular cycles and PCOS. I will refill Depo shot now. Headaches and migraines have not been well-controlled with Current triptan and propranolol for prophylaxis. Start Qulipta in Ubrelvy. Samples provided today. If migraines have not improved discussed need for referral to Neurology. she is due for wellness and labs. Wellness labs orders placed. Follow up in 3 months for wellness and recheck on migraines and we can also discuss GLP1 at that time. Karla was seen today for establish care and contraception. Diagnoses and all orders for this visit: Gastroesophageal reflux disease without esophagitis - [facility] - [place], [place]; Future Bilateral carpal tunnel syndrome - Ambulatory referral to Orthopedic Surgery; Future Menorrhagia with irregular cycle - [facility] [place], [place] - Consult; Future PCOS (polycystic ovarian syndrome) - [facility] - [facility] [place], [place] - Consult; Future Healthcare maintenance - Lipid panel; Future - Comprehensive metabolic panel; Future - TSH with Reflex; Future - Hemoglobin A1c; Future - CBC auto differential; Future - Iron and TIBC; Future - Vitamin B12; Future - Vitamin D 25 hydroxy; Future Encounter for initial prescription of injectable contraceptive - medroxyPROGESTERone (DEPO-PROVERA) 150 mg/mL syringe; Inject 1 mL (150 mg total) into the appropriate muscle once for 1 dose. Migraine without aura and without status migrainosus, not intractable - ubrogepant (UBRELVY) 100 mg tablet; Take 100 mg by mouth as needed (migraines). - atogepant (QULIPTA) 60 mg tablet; Take 60 mg by mouth in the morning. Encounter for lipid screening for cardiovascular disease - Lipid panel; Future Generalized anxiety disorder - Vitamin B12; Future - Vitamin D 25 hydroxy; Future Diabetes mellitus due to underlying condition with hyperosmolarity without coma, without long-term current use of insulin ([facility]) - Comprehensive metabolic panel; Future - TSH with Reflex; Future - Hemoglobin A1c; Future Chronic fatigue - CBC auto differential; Future - Iron and TIBC; Future - Vitamin B12; Future - Vitamin D 25 hydroxy; Future Hx of iron deficiency anemia - CBC auto differential; Future - Iron and TIBC; Future Encounter to establish care Other orders - pantoprazole (PROTONIX) 40 mg EC tablet; Take 1 tablet (40 mg total) by mouth in the morning. Indications: gastroesophageal reflux disease. FELISHA Staples 01/23/25 1457 documented in [facility] Note Attestation signed by Tee Mccartney MD at 11/25/2024 12:22 AM GC: I saw this patient. I personally performed the critical/oliveira portions that determines the level of service. I was directly involved in the management and treatment plan of the patient. I reviewed note and agree with the documentation Subjective Karla Burch is a 29 y.o. year old female patient with concern for inflammatory arthritis, history of T2DM, GERD, migraines, anxiety, depression, history of COVID-19 infection in Sep 2020. Karla Burch presents to the clinic for Pain in joint, multiple sites and Follow-up Medication regimen: Prednisone 7.5 mg every day x 1 week during symptoms of joint pain. Patient presents for follow-up today, last seen in March 2023 with plan for 1 month follow-up. She has had cyclic joint pain: phases where it flares for a couple weeks then remitts for a couple weeks. In March 2023, we planned to trial corticosteroid with Prednisone 7.5 mg every day x 1 week when experiencing symptoms ---> complete resolution of joint pain + stiffness for 3 weeks for each course (2 courses total) in circa March-May 2023. Patient unfortunately lost to follow-up until now, she had lost insurance coverage. Today, patient reports pain that is 2/10 in severity, was 5 in March 2023. Localized to hands (all joints but usually MCPs, PIPs, IP of thumb), wrists, neck, ankles, knees. AM stiffness lasts 1-2 hours, on average daily when experiencing period of joint pain. Denies joint erythema, swelling, warmth. Additionally, she notes other symptoms concerning to her for autoimmune disease (first noted in March 2023): fatigue, pain in her ear cartilage at times concerning her for relapsing polychondritis, facial rash diagnosed as rosacea but with some photosensitivity on her neck and chest (improves with steroid), dry mouth, dry eye, GERD. Review of Systems: Review of Systems Constitutional: Positive for fatigue. Negative for chills and fever. HENT: Positive for ear pain (at times). Negative for mouth sores and trouble swallowing. Dry mouth. Eyes: Positive for photophobia and visual disturbance (blurry, eye strain). Negative for pain. Dry eyes. Respiratory: Negative for cough, shortness of breath and wheezing. Cardiovascular: Negative for chest pain and palpitations. No Raynaud's phenomenon. Gastrointestinal: Positive for abdominal pain, constipation and diarrhea. Negative for nausea and vomiting. GERD. Diarrhea and constipation oscillates --- working up with GI. Genitourinary: Negative for difficulty urinating, dysuria and hematuria. Musculoskeletal: Positive for arthralgias and neck pain. Negative for back pain, joint swelling and myalgias. Skin: Positive for rash. Rosacea with some photosensitivity. No excessive hair loss, nail changes, other skin conditions. Neurological: Positive for numbness (down her nose if her neck is hurting, lateral L leg with back pain) and headaches. Negative for dizziness, weakness and light-headedness. Psychiatric/Behavioral: Positive for dysphoric mood and sleep disturbance (unrefreshing sleep). The patient is nervous/anxious. Anxiety and depression under control -- sees therapy Objective BP 137/83 (BP Location: Right wrist, Patient Position: Sitting, BP Cuff Size: Adult) Pulse 109 Ht 1.626 m (5' 4 ) Wt (!) 166 kg (366 lb) SpO2 98% BMI 62.82 kg/m??? Physical Exam: Physical Exam Constitutional: General: She is not in acute distress. HENT: Head: Normocephalic and atraumatic. Eyes: General: Right eye: No discharge. Left eye: No discharge. Extraocular Movements: Extraocular movements intact. Cardiovascular: Rate and Rhythm: Normal rate and regular rhythm. Heart sounds: Normal heart sounds. No murmur heard. Pulmonary: Effort: Pulmonary effort is normal. No respiratory distress. Breath sounds: Normal breath sounds. Musculoskeletal: General: Tenderness present. No swelling or deformity. Right lower leg: No edema. Left lower leg: No edema. Comments: Mild tenderness to palpation: MCPs, PIPs, wrists No overt synovitis. Skin: General: Skin is warm and dry. Findings: Rash present. Comments: Erythematous rash on face and chin which somewhat is over nasolabial folds, appears consistent with rosacea. Neurological: General: No focal deficit present. Mental Status: She is alert and oriented to person, place, and time. Psychiatric: Behavior: Behavior is cooperative. Assessment/Plan Diagnoses and all orders for this visit: Palindromic rheumatism - hydroxychloroquine (Plaquenil) 200 mg tablet; Take 2 tablets (400 mg) by mouth in the morning. - predniSONE (Deltasone) 2.5 mg tablet; Take 3 tablets (7.5 mg) by mouth in the morning. Pain in joint, multiple sit (more content not included)...[facility]11-20-2024 History of Present illness Narrative* Matias Saha, PhD - 08/03/2024 12:30 PM EST Images from the original note were not included. Neuropsychology Matias Saha, PhD NEUROPSYCHOLOGICAL EVALUATION Karla Burch is a 28 y.o. female referred for neuropsychological evaluation to assist with facilitating and informing medical differential diagnosis and clinical decision-making. The following information was obtained during an interview with the patient, as well as review of available records. PRESENTING PROBLEM: Possible baseline ADHD with long-standing history of distractibility, poor attention/concentration,easily feeling overwhelmed, feeling as though her mind is knotted up , jumping between tasks with difficulty completing them, word- finding difficulty, jumping between topics during conversation, and procrastination. 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 Feels the struggles have alwaysexisted but became more prevalent as she entered college and adulthood with the increased responsibilities and task demands. Reported trialing Vyvanse in the past which was somewhat helpful but discontinued due to uncomfortable side effects. Subsequently trialed Strattera with minimal benefits. Physical activity includes walking approximately half mile/day. Socially more of a homebody at baseline. Sleep quality fluctuates reporting that she either sleeps too much or too little. Constantly feels tired and fatigued. Snores. Has never undergone a sleep study. Pain complaints include back and foot. No prior neurological history. Family neurological history includes memory struggles (mother). Also reported that at least three of her cousins have been diagnosed with ADHD. Psychiatric history notable for depression, anxiety, OCD, and questionable agoraphobia. Psychiatric nurse practitioner manages this. Denied any history of alcohol/substance abuse or smoking. [place] language [place]an. Completed high school education and reported doing quite well. Attempted college x4, dropping out every time after losing interest and struggles focusing. 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 Single, never , no children. Lives with mother. MEDICAL HISTORY/MEDICATION: MEDICATIONS: No current outpatient medications ASSESSMENT: Presented to appointment on time, alert, and Ox3. Rapport easily established. Good eye contact. Socially appropriate during conversation and testing. Hearing adequate for current purposes. Ambulated independently. Purpose for current evaluation explained and patient agreed to participate. Performance validity testing overall consistent with good effort. Vision/Visuoconstruction: Binocular near-point visual acuity 20/25. Visual garcia full to confrontation. Nonverbal abstract reasoning 90th %ile. Copy of a complex geometric design >16th %ile. Motor/Speed of Processing: Right-handed. Earth Science Teacher strength <1st %ile, bilaterally. Speeded graphomotor transcoding 6th %ile. Attention/Working Memory: Auditory attention/working memory 96th %ile (9 digits forward, 7 digits backward, 6 digits during sequencing). Speeded visual scanning/attention 7th %ile. Speeded visual divided attention 24th %ile. Speech/Language: Expressive speech fluent and absent of paraphasic errors. Comprehension adequate for current purposes. Single-word reading 87th %ile. Generative naming to phonemic cues 18th %ile, 31st %ile to semantic cues. Confrontation naming 27th %ile. Verbal abstract reasoning 82nd %ile. Learning and Memory: Learning of a word list 96th %ile (9-89-54-16-16), delayed recall 93rd %ile. Recognition discriminability 84th %ile. Forced-choice /16. Immediate recall for a variety of geometric figures 92nd %ile, delayed 99th %ile. Recognition >75th %ile. Executive Functioning: Novel problem-solving and cognitive flexibility >16th %ile, 5/6 categories completed in 64 sorts. Responding absent of significant perseveration. Emotional Functioning: Minimal depression and moderate anxiety. Denied any thoughts of self-harm. Elevated ADHD symptom report. FINDINGS AND RECOMMENDATIONS: CONCLUSIONS: 1. Estimated high average pre-morbid intellectual functioning. 2. Preserved visual acuity without signs of visual field cut or neglect. 3. Severely deficient bilateral gross motor function. 4. Minimal depression and moderate anxiety. 5. Elevated ADHD symptom report. OPINION: Current neuropsychological evaluation reveals, when focused and attentive, cognition and memory remain well preserved. Overall presentation and history are most consistent with ADHD, inattentive type. Variable psychiatric issues along with poor sleep and suspected underlying ELKIN are likelyexacerbating the distractibility and interfering with optimal memory and cognitive efficiency. RECOMMENDATIONS: Results and recommendations forwarded to treating physician for review during their upcoming appointment. Patient encouraged to contact this office with any additional questions. No activity restriction from a cognitive standpoint. Continued monitoring and management of the depression and anxiety. Treating physician may wish to initiate psychostimulant vs. nonpsychostimulant trial for improved attention/concentration and cognitive efficiency. Nonmedication routes of treatment may include functional nutrition management through [facility] or individual psychotherapy to develop behavioral strategies. Improved sleep quality. PSG/HST to assess and treat suspected underlying ELKIN. Behavioral strategies for improved attention and memory: Regularly and frequently review information that must be remembered. Link new information in as many ways as possible to already known information. This strategy creates several avenues for remembering the information later. Utilize external memory sources such as lists, date books, calendars, and pocket-size recorders forinformation that must be remembered. A cellphone is a useful tool in consolidating all this information into one source. Active listening, such as repeating and summarizing information back to presenter when learning important information for future recall may be beneficial as opposed to simply passive listening. Establish a consistent structured routine. Regular physical activity for stress relief, improved cognitive efficiency, and better sleep. No need for neuropsychological re-evaluation. Thank you for allowing me to participate in the care of this individual. Please contact me with [employer] at [phone]. documented in this encounterExcelsior Springs Medical [id number] History of Present illness Narrative* Matias Saha, PhD - 07/18/2024 3:30 PM EST Images from the original note were not included. Matias Saha, PhD NEUROBEHAVIORAL STATUS EXAMINATION Karla Burch is a 28 y.o. female referred for neuropsychological evaluation to assist with facilitating and informing medical differential diagnosis and clinical decision-making. The following information was obtained during an interview with the patient, as well as review of available records. PRESENTING PROBLEM AND HISTORY Possible baseline ADHD with long-standing history of distractibility, poor attention/concentration,easily feeling overwhelmed, feeling as though her mind is knotted up , jumping between tasks with difficulty completing them, work- finding difficulty, jumping between topics during conversation, and procrastination. 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 Feels the struggles have alwaysexisted but became more prevalent as she entered college and adulthood with the increased responsibilities and task demands. Reported trialing Vyvanse in the past which was somewhat helpful but discontinued due to uncomfortable side effects. Subsequently trialed Strattera with minimal benefits. Physical activity includes walking approximately half mile/day. Socially more of a homebody at baseline. Sleep quality fluctuates reporting that she either sleeps too much or too little. Constantly feels tired and fatigued. Snores. Has never undergone a sleep study. Pain complaints include back and foot. No prior neurological history. Family neurological history includes memory struggles (mother). Also reported that at least three of her cousins have been diagnosed with ADHD. Psychiatric history notable for depression, anxiety, OCD, and questionable core phobia. Psychiatric nurse practitioner manages this. Denied any history of alcohol/substance abuse or smoking. [place] language Venezuelan. Complete high school education and reported doing quite well. Attempted college ask for, dropping out every time after losing interest and struggles focusing. 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 Single, never , no children. Lives with mother. MEDICAL HISTORY/MEDICATION: No past medical history on file. MEDICATIONS: No current outpatient medications INITIAL IMPRESSION AND PLAN: ADHD, inattentive type, ELKIN, depression, anxiety, OCD, and agoraphobia: The patient will be scheduled for neuropsychological assessment, which will include tests for memory, reasoning, language, problem-solving, attention, and mood. Thank you for allowing me to participate in the care of this individual. Please contact me with [employer] at [phone]. documented in this encounterExcelsior Springs Medical [id number] Consult note Author Teodora KimM[facility] January 09, 2023 10:53amNote Date/TimeApril 2022 1:38pm[facility] [place] [address] Hem/Onc Consult Note - OP Signed Patient: Karla Burch MR#: [id number] : 1995 Acct:[id number] Age/Sex: 27 / F Type: REG RCR Copies to: Scott Dalton PAC~ HPI Date/Time of Service: Date of Service: 01/06/2023 Time of Service: 13:37 Referring Provider/PCP: Referring Provider: Scott Dalton PA-C PCP: Scott Dalton PA-C - History of Present Illness Chief Complaint: Patient is here today for a referral from [facility] for iron deficiency anemia HPI: Karla is a 27 year old female with a history of iron deficiency anemia, anxiety, depression, COVID, diabetes, heartburn, migraine headaches, OCD and seasonal allergies. Surgical history includes tonsillectomy and wisdom teeth removal. She denies any personal history of cancer. Family cancer history includes her maternal grandmother with lung cancer and her maternal grandfather with pancreatic cancer. She also notes her mother has iron deficiency anemia d/tmalabsorption and requires iron infusions. She is referred by EDEL Mak for iron deficiency anemia. Most recent labsreveal iron saturation of 8% and ferritin of 69. On exam, she has a lot of fatigue and dyspnea on exertion, as well as some dizziness. She does not crave ice, but does crave red meat. She does have some issues with vomiting related to her heartburn, but recently increased her PPI. She notes her pcp will order an EGD if this doesn't improve her symptoms. She goes back and forth between diarrhea and constipation. She has headaches every day, thisis not new for her and she is on medication for this. She used to haveheavy periods until she was started on control; she no longer has periods with this medication. She has been on oral iron for 10+ years for iron deficiency. PENDING SALE TO [facility] - Medical History Medical History: Medical History (Last Updated 01/06/23 @ 13:38 by Teodora Palacios APRN) Anxiety and depression COVID-19 Diabetes mellitus Heartburn Iron deficiency anemia Migraine headache OCD (obsessive compulsive disorder) Seasonal allergies - Surgical History Surgical History: Surgical History (Last Updated 01/05/23 @ 14:51 by Cammy Rios) History of tonsillectomy [place] teeth removed - Family History Family History: Family History (Last Updated 01/05/23 @ 14:54 by Cammy Rios) Father Mental illness in member of household Mother Mental illness in member of household Rheumatoid arthritis Diabetes Hypertension Heart disease Mother No problems noted. Grandparent Diabetes - Social History Smoking Status: Never smoker Home Medications & Allergies Allergies No Known Allergies Allergy (Verified 01/06/23 13:14) Home Medications L norgest/E estradiol-E estrad 0.15 mg-30 mcg (84)/10 mcg(7) tabs,3mos (Simpesse) 1 tab PO DAILY 01/05/23 [History Confirmed 01/06/23] albuterol sulfate 90 mcg/actuation aerosol inhaler (Ventolin HFA) 2 puff inhalation QID 01/05/23 [History Confirmed 01/06/23] buspirone 30 mg tablet 30 mg PO BID 01/05/23 [History Confirmed 01/06/23] calcium 500 mg tablet mg 01/05/23 [History] dulaglutide 1.5 mg/0.5 mL subcutaneous pen injector (Trulicity) 1.5 mg subcut QWEEK 01/05/23 [History Confirmed 01/06/23] ferrous sulfate 325 mg (65 mg iron) tablet (iron) 325 mg PO DAILY 01/05/23 [History Confirmed 01/06/23] fexofenadine 180 mg tablet 180 mg PO DAILY 01/05/23 [History Confirmed 01/06/23] fluoxetine 40 mg capsule (Prozac) 40 mg PO DAILY 01/05/23 [History Confirmed 01/06/23] fluticasone propionate 50 mcg/actuation nasal spray,suspension (Flonase Allergy Relief) 1 spray intranasal DAILY 01/05/23 [History Confirmed 01/06/23] meclizine 25 mg tablet 25 mg PO BID PRN Vertigo 01/05/23 [History Confirmed 01/06/23] metformin 1,000 mg tablet 1,000 mg PO BID 01/05/23 [History Confirmed 01/06/23] pantoprazole 20 mg tablet,delayed release 20 mg PO DAILY 01/05/23 [History Confirmed 01/06/23] rizatriptan 10 mg tablet 10 mg PO ONCE 01/05/23 [History Confirmed 01/06/23] topiramate 25 mg tablet (Topamax) 25 mg PO BID 01/05/23 [History Confirmed 01/06/23] alprazolam 0.5 mg tablet 0.5 mg PO BID PRN Anxiety 01/06/23 [History Confirmed 01/06/23] Objective - Height/Weight Height/Weight: Height 5 ft 5 in Weight 167.376 kg - Vital Signs Vital Signs: 01/06/23 13:19 Temperature 97.8 F Pulse Rate [Left Brachial] 98 H Respiratory Rate 16 Blood Pressure [Left Arm] 162/81 H 02 Sat by Pulse Oximetry 99 Oxygen Delivery Method Room Air Physical Exam Narrative: CONSTITUTIONAL: The patient is in no acute distress. HEAD / FACE: Normocephalic. Her face is red, normal appearance per pt RESPIRATORY: Normal to inspection. Lungs clear to auscultation and percussion. No wheezing, rales, rhonchi or rubs. Normal effort. CARDIOVASCULAR: Regular rate and rhythm. No murmurs, gallops, or rubs. ABDOMEN: Bowel sounds normoactive. Soft, nontender, non-distended. No splenomegaly. No palpable masses. INTEGUMENTARY: No rashes. No suspicious lesions NEUROLOGICAL: Alert and oriented. Cranial nerves intact. No gross motor or sensory deficits. PSYCHIATRIC: No anxiety or evidence of depression. Assessment and Plan (1) Iron deficiency anemia Iron deficiency anemia Malabsorption. She has been on oral iron for 10+ years without improvement in her counts She used to have heavy menses, now is on control that prevents a monthly cycle. She likely was never able to get repleted from the oral iron d/t her malabsorption issue We will plan for IV Venofer 300mg x 3 doses Follow-up in 8 weeks with cbc, cmp, and iron studies - Time with Patient Coordination of Care & Counseling Time: Greater than 50% of time spent with patient was for coordination of care (as documented) and [id number] counseling of patient and/or family. Dictated By: Teodora Palacios APRN DD/ [id number] Signed By: <Electronically signed by KENYA Palacios> 01/09/23 1053 [facility] Work Phone: [phone]) 569-629308-06-2022 Evaluation note* Encounter Date Diagnosis Assessment Notes Treatment Notes Treatment Clinical Notes Apr, Acute sinusitis, rec urrence not specified, unspecified location (ICD-10 - J01.90) Sinusitis home care material was printed Drink plenty fluids, get plenty of rest. Take the amoxicillin with clavulanate and prednisone as prescribed until gone. Use the Flonase inhaler as prescribed until your symptoms improve. Continue take your antihistamine daily. Follow-up with your family physician if no improvement in 2 to 3 days. [employer] Other Consult note Author Teodora Palacios [facility] January 09, 2023 10:53amNote Date/TimeApril 2022 1:38pmMethod[facility] [place] [address] Hem/Onc Consult Note - OP Signed Patient: Karla Burch MR#: [id number] : 1995 Acct:[id number] Age/Sex: 27 / F Type: REG RCR Copies to: Scott Dalton PAC~ HPI Date/Time of Service: Date of Service: 01/06/2023 Time of Service: 13:37 Referring Provider/PCP: Referring Provider: Scott Dalton PA-C PCP: Scott Dalton PA-C - History of Present Illness Chief Complaint: Patient is here today for a referral from [facility] for iron deficiency anemia HPI: Karla is a 27 year old female with a history of iron deficiency anemia, anxiety, depression, COVID, diabetes, heartburn, migraine headaches, OCD and seasonal allergies. Surgical history includes tonsillectomy and wisdom teeth removal. She denies any personal history of cancer. Family cancer history includes her maternal grandmother with lung cancer and her maternal grandfather with pancreatic cancer. She also notes her mother has iron deficiency anemia d/tmalabsorption and requires iron infusions. She is referred by E[facility] Mak for iron deficiency anemia. Most recent labsreveal iron saturation of 8% and ferritin of 69. On exam, she has a lot of fatigue and dyspnea on exertion, as well as some dizziness. She does not crave ice, but does crave red meat. She does have some issues with vomiting related to her heartburn, but recently increased her PPI. She notes her pcp will order an EGD if this doesn't improve her symptoms. She goes back and forth between diarrhea and constipation. She has headaches every day, thisis not new for her and she is on medication for this. She used to haveheavy periods until she was started on control; she no longer has periods with this medication. She has been on oral iron for 10+ years for iron deficiency. PENDING SALE TO [facility] - Medical History Medical History: Medical History (Last Updated 01/06/23 @ 13:38 by Teodora Palacios APRN) Anxiety and depression COVID-19 Diabetes mellitus Heartburn Iron deficiency anemia Migraine headache OCD (obsessive compulsive disorder) Seasonal allergies - Surgical History Surgical History: Surgical History (Last Updated 01/05/23 @ 14:51 by Cammy Rios) History of tonsillectomy [place] teeth removed - Family History Family History: Family History (Last Updated 01/05/23 @ 14:54 by Cammy Rios) Father Mental illness in member of household Mother Mental illness in member of household Rheumatoid arthritis Diabetes Hypertension Heart disease Mother No problems noted. Grandparent Diabetes - Social History Smoking Status: Never smoker Home Medications & Allergies Allergies No Known Allergies Allergy (Verified 01/06/23 13:14) Home Medications L norgest/E estradiol-E estrad 0.15 mg-30 mcg (84)/10 mcg(7) tabs,3mos (Simpesse) 1 tab PO DAILY 01/05/23 [History Confirmed 01/06/23] albuterol sulfate 90 mcg/actuation aerosol inhaler (Ventolin HFA) 2 puff inhalation QID 01/05/23 [History Confirmed 01/06/23] buspirone 30 mg tablet 30 mg PO BID 01/05/23 [History Confirmed 01/06/23] calcium 500 mg tablet mg 01/05/23 [History] dulaglutide 1.5 mg/0.5 mL subcutaneous pen injector (Trulicity) 1.5 mg subcut QWEEK 01/05/23 [History Confirmed 01/06/23] ferrous sulfate 325 mg (65 mg iron) tablet (iron) 325 mg PO DAILY 01/05/23 [History Confirmed 01/06/23] fexofenadine 180 mg tablet 180 mg PO DAILY 01/05/23 [History Confirmed 01/06/23] fluoxetine 40 mg capsule (Prozac) 40 mg PO DAILY 01/05/23 [History Confirmed 01/06/23] fluticasone propionate 50 mcg/actuation nasal spray,suspension (Flonase Allergy Relief) 1 spray intranasal DAILY 01/05/23 [History Confirmed 01/06/23] meclizine 25 mg tablet 25 mg PO BID PRN Vertigo 01/05/23 [History Confirmed 01/06/23] metformin 1,000 mg tablet 1,000 mg PO BID 01/05/23 [History Confirmed 01/06/23] pantoprazole 20 mg tablet,delayed release 20 mg PO DAILY 01/05/23 [History Confirmed 01/06/23] rizatriptan 10 mg tablet 10 mg PO ONCE 01/05/23 [History Confirmed 01/06/23] topiramate 25 mg tablet (Topamax) 25 mg PO BID 01/05/23 [History Confirmed 01/06/23] alprazolam 0.5 mg tablet 0.5 mg PO BID PRN Anxiety 01/06/23 [History Confirmed 01/06/23] Objective - Height/Weight Height/Weight: Height 5 ft 5 in Weight 167.376 kg - Vital Signs Vital Signs: 01/06/23 13:19 Temperature 97.8 F Pulse Rate [Left Brachial] 98 H Respiratory Rate 16 Blood Pressure [Left Arm] 162/81 H 02 Sat by Pulse Oximetry 99 Oxygen Delivery Method Room Air Physical Exam Narrative: CONSTITUTIONAL: The patient is in no acute distress. HEAD / FACE: Normocephalic. Her face is red, normal appearance per pt RESPIRATORY: Normal to inspection. Lungs clear to auscultation and percussion. No wheezing, rales, rhonchi or rubs. Normal effort. CARDIOVASCULAR: Regular rate and rhythm. No murmurs, gallops, or rubs. ABDOMEN: Bowel sounds normoactive. Soft, nontender, non-distended. No splenomegaly. No palpable masses. INTEGUMENTARY: No rashes. No suspicious lesions NEUROLOGICAL: Alert and oriented. Cranial nerves intact. No gross motor or sensory deficits. PSYCHIATRIC: No anxiety or evidence of depression. Assessment and Plan (1) Iron deficiency anemia Iron deficiency anemia Malabsorption. She has been on oral iron for 10+ years without improvement in her counts She used to have heavy menses, now is on control that prevents a monthly cycle. She likely was never able to get repleted from the oral iron d/t her malabsorption issue We will plan for IV Venofer 300mg x 3 doses Follow-up in 8 weeks with cbc, cmp, and iron studies - Time with Patient Coordination of Care & Counseling Time: Greater than 50% of time spent with patient was for coordination of care (as documented) and [id number] counseling of patient and/or family. Dictated By: Toedora Palacios APRN DD/ [id number] Signed By: <Electronically signed by KENYA Palacios> 01/09/23 1053 [facility] Work Phone: Evaluation noteNo assessment information available [facility] Work Phone: Evaluation note* Diagnosis Onset Date Resolution Status Iron deficiency anemia acute [facility] Work Phone: Evaluation note* Diagnosis ADHD (attention deficit hyperactivity disorder), inattentive type (CMS/HCC)- Primary ELKIN (obstructive sleep apnea) Obstructive sleep apnea (adult) (pediatric) Depression, unspecified depression type (CMS/HCC) Generalized anxiety disorder (CMS/HCC) Generalized anxiety disorder Obsessive-compulsive disorder, unspecified type (CMS/HCC) Agoraphobia (CMS/HCC) Agoraphobia without mention of panic attacks documented in this encounter [facility] HealthcareEvaluation note* Diagnosis ADHD (attention deficit hyperactivity disorder), inattentive type (CMS/HCC)- Primary ELKIN (obstructive sleep apnea) Obstructive sleep apnea (adult) (pediatric) Depression, unspecified depression type (CMS/HCC) Generalized anxiety disorder (CMS/HCC) Generalized anxiety disorder Obsessive-compulsive disorder, unspecified type (CMS/HCC) Agoraphobia (CMS/HCC) Agoraphobia without mention of panic attacks documented in this encounter [facility] HealthcareEvaluation note* Diagnosis Gastroesophageal reflux disease without esophagitis- Primary Esophageal reflux Bilateral carpal tunnel syndrome Carpal tunnel syndrome Menorrhagia with irregular cycle PCOS (polycystic ovarian syndrome) Polycystic ovaries Healthcare maintenance Encounter for initial prescription of injectable contraceptive Migraine without aura and without status migrainosus, not intractable Encounter for lipid screening for cardiovascular disease Generalized anxiety disorder Diabetes mellitus due to underlying condition with hyperosmolarity without coma, without long-term current use of insulin ([facility]) Chronic fatigue Other malaise and fatigue Hx of iron deficiency anemia Encounter to establish care [facility] Diagnosis Elevated blood pressure reading- Primary Elevated blood pressure reading without diagnosis of hypertension Type 2 diabetes mellitus with hyperosmolarity without coma, without long-term current use of insulin ([facility]) [facility]* Diagnosis Elevated blood pressure reading- Primary Elevated blood pressure reading without diagnosis of hypertension Type 2 diabetes mellitus with hyperosmolarity without coma, without long-term current use of insulin ([facility]) PCOS (polycystic ovarian syndrome) Polycystic ovaries Menorrhagia with irregular cycle [facility]* Diagnosis Elevated blood pressure reading Elevated blood pressure reading without diagnosis of hypertension Type 2 diabetes mellitus with hyperosmolarity without coma, without long-term current use of insulin ([facility]) PCOS (polycystic ovarian syndrome) Polycystic ovaries Menorrhagia with irregular cycle [facility] Diagnosis Gallbladder sludge- Primary Gastroesophageal reflux disease without esophagitis Esophageal reflux Epigastric pain Abdominal pain, epigastric Heartburn Alternating constipation and diarrhea [facility]* Diagnosis Encounter for initial prescription of injectable contraceptive [facility] Diagnosis Encounter for initial prescription of injectable contraceptive [facility]* Diagnosis Type 2 diabetes mellitus with hyperosmolarity without coma, without long-term current use of insulin ([facility])- Primary Elevated blood pressure reading Elevated blood pressure reading without diagnosis of hypertension PCOS (polycystic ovarian syndrome) Polycystic ovaries [facility]* Diagnosis Immunization due- Primary Elevated blood pressure reading Elevated blood pressure reading without diagnosis of hypertension Type 2 diabetes mellitus with hyperosmolarity without coma, without long-term current use of insulin ([facility]) PCOS (polycystic ovarian syndrome) Polycystic ovaries Menorrhagia with irregular cycle Wellness examination Migraine without aura and without status migrainosus, not intractable [facility]* Diagnosis Encounter for initial prescription of injectable contraceptive [facility] Narrative - Reported* Type Description Date Surgical History tonsillectomy Surgical Historyplantar fascia release - bilateralSurgical Historywisdom Axentra Other InstructionsNot on filedocumented in this [facility] filedocumented in this [facility] on filedocumented in this encounter [facility] on filedocumented in this encounter [facility] on filedocumented in this encounter [facility] on filedocumented in this encounter [facility] on filedocumented in this encounter [facility] on filedocumented in this encounter [facility]InstructionsNot on filedocumented in this encounter [facility] on filedocumented in this encounter [facility]Not on filedocumented in this encounter [facility]ructionsNot on filedocumented in this encounter [facility]Reason for [facility] Narrative* Neuropsych Testing (Routine) - ClosedSpecialtyDiagnoses / ProceduresReferred By ContactReferred To Contact Neuropsychology / Neurology Diagnoses Attention-deficit hyperactivity disorder, combined type (CMS/HCC) Procedures IA NEUROPSYCH TESTING BY PSYCH/PHYS Neema Cardozo MD [address] [place] [id number] Phone: tel: fax: Matias Saha, PhD [address] [place] [phone] Phone: tel: fax: Referral IDStatusReasonStart DateExpiration DateVisits RequestedVisits [id number] Co-Management of Problem / [facility] Healthcare Summary Purpose Family History No Family History Records Found Relationship Condition Age at Onset Recorded Date/T aydin father Mental illness in member of household Unk nown Not SpecifiedMental illness in member of householdUnknownRheumatoid arthritis UnknownDiabetes mellitusUnknownHypertensionUnknownHeart diseaseUnknown grandparentDiabetes mellitusUnknown Relationship Condition Age at Onset Recorded Date/T aydin father Mental illness in member of household Unk nown motherMental illness in member of householdUnknownRheumatoid arthritisUnknown Diabetes mellitusUnknownHypertensionUnknownHeart diseaseUnknowngrandparent Diabetes mellitusUnknown Advance Directives No Advanced Directives Records Found Date ActivatedDate InactivatedComments09/21/2020 9:29 PM09/26/2020 5:08 PMDate ActivatedDate InactivatedComments09/21/2020 9:29 PM09/26/2020 5:08 PM Chief Complaint and Reason for Visit Chief Complaint Iron Deficiency Anem ia Chief Complaint Iron Deficiency Anem ia Reason for Visit Iron deficiency anem ia Additional Source Comments REASON FOR VISIT (unrecogniz ed section and content) ReasonCommentsEstablish CareContraceptionHas been on DepoReasonCommentsDiscuss Lab ResultsReasonOnset DateCommentsMed Dahxcz2002/28/2025ReasonCommentsHeartburn Patient would like an EDG ordered to see if she has an ulcer. Pain in abdominal and into back when stomach is empty and with certain foods. Family history of IBSSpecialtyDiagnoses / ProceduresReferred By ContactReferred To Contact Gastroenterology Diagnoses Gastroesophageal reflux disease without esophagitis Luis Felipe Jon, KENYA-RAT POISONER [address] [place] [phone] Phone: tel: fax: [facility] Department of [address] [phone] Phone: tel: fax: Referral IDStatusReasonStart DateExpiration DateVisits RequestedVisits [id number] Review Specialty Services Required [id number] Change RequestReasonCommentsMed Refill ReasonOnset DateCommentsMed Zkmkxd2804/11/2025ReasonCommentsWellness INFORMATION SOURCE (unrecogn ized section and content) DATE CREATED AUTHOR 07/14/2022 [facility] DATE CREATED AUTHOR AUTHOR'S ORGANIZ ATION 06/17/2023 [facility] DATE CREATED AUTHOR AUTHOR'S ORGANIZ ATION 04/25/2024 [facility] DATE CREATED AUTHOR AUTHOR'S ORGANIZ ATION 08/06/2024 [facility] DATE CREATED AUTHOR AUTHOR'S ORGANIZ ATION 11/27/2024 [facility] DATE CREATED AUTHOR AUTHOR'S ORGANIZ ATION 03/09/2025 [facility] DATE CREATED AUTHOR AUTHOR'S ORGANIZ ATION 04/29/2025 [facility] DATE CREATED AUTHOR AUTHOR'S ORGANIZ ATION 07/24/2025 [facility] Teams (unrecognized sec tion and content) Team Status: Active Member Role Status Dates EDEL Lockhart-C Primary Care Provider Activ e Team Status: Active Member Role Status Dates Teodora Palacios , DIALYSIS REGISTERED NURSE Attending Provider Acti ve EDEL Lockhart-[facility] Care Provider, Referring ProviderActiveTeam MemberRelationshipSpecialtyStart DateEnd Date Neema Cardozo MD [address] [place] [address] [facility] Cedwrd46/8/24Team MemberRelationshipSpecialtyStart Date End Date Neema Cardozo MD [address] [place] [address] PCP - [facility]06/21/24Team MemberRelationshipSpecialtyStart Date End Date Neema Cardozo MD [address] [place] [address] [facility] - [facility] Spgnyv74/8/24Team MemberRelationshipSpecialtyStart Date End Date Luis Felipe Jon APRN-RAT POISONER [address] [place] [phone] PCP - GeneralFamily Medicine01/23/25Team MemberRelationshipSpecialtyStart DateEnd Date Luis Felipe Jon DIALYSIS REGISTERED NURSE-RAT POISONER [address] [place] [phone] PCP - GeneralFamily Medicine01/23/25Team MemberRelationshipSpecialtyStart DateEnd Date Luis Felipe Jon APRN-RAT POISONER [address] [place] [phone] PCP - GeneralFamily Medicine01/23/25Team MemberRelationshipSpecialtyStart DateEnd Date Luis Felipe Jon DIALYSIS REGISTERED NURSE-RAT POISONER [address] [place] [address], [place] [phone] PCP - GeneralFamily Medicine01/23/25Team MemberRelationshipSpecialtyStart DateEnd Date Luis Felipe Jon DIALYSIS REGISTERED NURSE-RAT POISONER [address] [place] [address], [place] [address] PCP - GeneralFamily Medicine01/23/25Team MemberRelationshipSpecialtyStart DateEnd Date Lui sFelipe Jon DIALYSIS REGISTERED NURSE-RAT POISONER [address] [place] [address], [place] [address] PCP - GeneralFamily Medicine01/23/25Team MemberRelationshipSpecialtyStart DateEnd Date Luis Felipe Jon, DIALYSIS REGISTERED NURSE-RAT POISONER [address] [place] [address], [place] [address] PCP - GeneralFamily Medicine01/23/25Team MemberRelationshipSpecialtyStart DateEnd Date Luis Felipe Jon, DIALYSIS REGISTERED NURSE-RAT POISONER [address] [place] [address], [place] [phone] PCP - GeneralFamily Medicine01/23/25Team MemberRelationshipSpecialtyStart DateEnd Date Luis Felipe Jon, DIALYSIS REGISTERED NURSE-RAT POISONER [address] [place] [address], [place] [phone] PCP - GeneralFamily Medicine01/23/25Team MemberRelationshipSpecialtyStart DateEnd Date Luis Felipe Jon DIALYSIS REGISTERED NURSE-RAT POISONER [address] [place] [address], [place] [phone] PCP - GeneralFamily Medicine01/23/25Team MemberRelationshipSpecialtyStart DateEnd Date Luis Felipe Jon, DIALYSIS REGISTERED NURSE-RAT POISONER [address] [place] [address], [place] [phone] PCP - GeneralFamily Medicine01/23/25Team MemberRelationshipSpecialtyStart DateEnd Date Luis Felipe Jon DIALYSIS REGISTERED NURSE-RAT POISONER [address] [place] [address], [place] [phone] PCP - GeneralFamily Medicine01/23/25Team MemberRelationshipSpecialtyStart DateEnd Date Luis Felipe Jon DIALYSIS REGISTERED NURSE-RAT POISONER [address] [place] [address], [place] [address] PCP - GeneralFamily Medicine01/23/25Team MemberRelationshipSpecialtyStart DateEnd Date Luis Felipe Jon DIALYSIS REGISTERED NURSE-RAT POISONER [address] [place] [address], [place] [phone] PCP - GeneralFamily Medicine01/23/25Team MemberRelationshipSpecialtyStart DateEnd Date Luis Felipe Jon DIALYSIS REGISTERED NURSE-RAT POISONER [address] [place] [address], [place] [phone] PCP - GeneralFamily Medicine01/23/25Team MemberRelationshipSpecialtyStart DateEnd Date Luis Felipe Jon DIALYSIS REGISTERED NURSE-RITESH [address] [place] [phone] PCP - GeneralFamily Medicine01/23/25 Goals (unrecognized section and content) Goals may be documented in a n alternate section FOR RECORDS PERTAINING TO PATIENTS WHO ARE OR HAVE BEEN ENROLLED IN A CHEMICAL DEPENDENCY/SUBSTANCEABUSE PROGRAM, SOME INFORMATION MAY BE OMITTED. This clinical summary was aggregated from multiple sources. Caution should be exercised in using it in the provision of clinical care. This summary normalizes information from multiple sources, and as a consequence, information in this document may materially change the coding, format and clinical context of patient data. In addition, data may be omitted in some cases. CLINICAL DECISIONS SHOULD BE BASED ON THE PRIMARY CLINICAL RECORDS. [facility]. provides no warranty or guarantee of the accuracy or completeness of information in this document.
--- OUTSIDE RECORDS SUMMARY | 2025-08-11 08:03 | XMS_ITS | Clinical Summary ---
Author Organization [facility] Address [address] [place] [address] Care Team Providers Care Internet Marketing Coordinator Name Role Phone Scott Dalton MD Primary Care Provider [phone] Allergies Active AllergyReactionsCriticalityNoted DateCommentsHouse Dust Mite02/09/2023 Other reaction(s): itching, cough, rhinitis Medications MedicationSigDispense QuantityRefillsLast FilledStart DateEnd DateStatus acetaminophen (Tylenol) 500 mg tablet Take 1,000 mg by mouth every 6 (six) hours if needed.02/08/2023ctive rizatriptan (Maxalt) 10 mg tablet Take 10 mg by mouth.Active ibuprofen 600 mg tablet 02/08/2023ctive albuterol 90 mcg/actuation inhaler Inhale 2 puffs every 6 (six) hours if needed.Active ketoconazole (NIZOral) 2 % shampoo WASH SCALP AND FACE 3 TIMES A WEEK. LEAVE ON FOR 4-5 MINUTES THEN RINSE 01/05/2023ctive fexofenadine (Delilah) 180 mg tablet Take 180 mg by mouth in the morning.Active dulaglutide (Trulicity) 1.5 mg/0.5 mL pen injector Inject 1.5 mg under the skin once a week.Active metFORMIN (Glucophage) 500 mg tablet Take 1,000 mg by mouth.Active propranolol LA (Inderal LA) 120 mg 24 hr capsule Take by mouth in the morning.01/27/2023ctive ALPRAZolam (Xanax) 0.5 mg tablet Take 0.5 mg by mouth if needed in the morning and at bedtime.12/29/2022ctive buPROPion XL (Wellbutrin XL) 150 mg 24 hr tablet Take 150 mg by mouth in the morning.12/29/2022ctive busPIRone (Buspar) 30 mg tablet Take 30 mg by mouth twice a day.12/29/2022ctive FLUoxetine (PROzac) 20 mg tablet Take 40 mg by mouth in the morning.12/29/2022ctive fluticasone (Flonase Allergy Relief) 50 mcg/actuation nasal spray 1 (one) time each day at the same time.Active montelukast (Singulair) 10 mg tablet 1 (one) time each day at the same time.Active calcium 500 mg calcium (1,250 mg) tablet 1 (one) time each day at the same time.Active dicyclomine (Bentyl) 20 mg tablet Take 20 mg by mouth in the morning and at bedtime.03/31/2023ctive doxycycline (Vibramycin) 100 mg capsule TAKE 1 CAPSULE BY MOUTH EVERY DAY WITH FOOD AND FULL GLASS OF WATER03/25/2023 Active Simpesse 0.15 mg-30 mcg (84)/10 mcg (7) tablets,dose pack,3 month tablet 02/28/2023ctive sulfacetamide suspension (Klaron) 10 % suspension topical APPLY TOPICALLY TO FACE EVERY DAY03/26/2023ctive metFORMIN XR (Glucophage-XR) 500 mg 24 hr tablet Take 1,000 mg by mouth daily with evening meal. Do not crush, chew, or split. Active amoxicillin (Amoxil) 500 mg tablet Take 1 tablet by mouth every 6 (six) hours during the day.12/10/2023ctive amoxicillin-pot clavulanate (Augmentin) 875-125 mg tablet Take 1 tablet by mouth Twice daily at 6am and 6pm.01/28/2024ctive azithromycin (Zithromax) 250 mg tablet TAKE 2 TABLETS BY MOUTH ON DAY 1, AND THEN TAKE 1 TABLET BY MOUTH ONCE A DAY ON DAY 2 THROUGH DAY tive nitrofurantoin, macrocrystal-monohydrate, (Macrobid) 100 mg capsule Take 1 capsule by mouth Twice daily at 6am and 6pm.08/17/2024ctive fluconazole (Diflucan) 150 mg tablet Take 1 tablet by mouth in the morning.01/28/2024ctive fluconazole (Diflucan) 200 mg tablet Take 1 tablet by mouth in the morning.5Active medroxyPROGESTERone (Depo-Provera) 150 mg/mL syringe injection syringe INJECT 1 MILLILITER INTO THE MUSCLE ONCE EVERY 12 - 13 WEEKS WITH A HEALTHCARE MMJPBONB93/11/2025Active ondansetron ODT (Zofran-ODT) 4 mg disintegrating tablet Take 4 mg by mouth every 8 (eight) hours if needed.4Active sucralfate (Carafate) 1 gram tablet every 12 (twelve) hours.Active atomoxetine (Strattera) 40 mg capsule 40 mg once daily in the morning.4Active pantoprazole (ProtoNix) 40 mg EC tablet Take 40 mg by mouth before breakfast. Do not crush, chew, or split.Active hydroxychloroquine (Plaquenil) 200 mg tablet Indications:Palindromic rheumatismTake 2 tablets (400 mg) by mouth in the morning. 60 tablet 605Active predniSONE (Deltasone) 2.5 mg tablet Indications:Palindromic rheumatismTake 3 tablets (7.5 mg) by mouth in the morning. 90 tablet 5Active Active Problems ProblemNoted DateDiagnosed DateAttention deficit hyperactivity disorder (ADHD), predominantly inattentive type08/05/2024iliary colic02/20/2023 Overview (02/20/2023): Added automatically from request for surgery [id number] Gastroesophageal reflux disease without xswarmhammp25/29/2023Generalized anxiety gaidchhw79/17/2023Mild episode of recurrent major depressive fccrcnuz02/17/2023 Morbid gzwqiwj79/08/2021Pneumonia due to COVID-19 virus09/21/2020 Immunizations ImmunizationAdministration DatesNext DueDTP / HiB02/19/1995,1994, 1994DTaP, Nygegysosbz04/27/1998Hep B, Adolescent or Mnpnhhopf78/29/1995, 1994,1994HiB, vxoxsygwylb73/20/1996Influenza, injectable, quadrivalent, preservative free09/21/2020,05/28/2017,07/24/2015,07/07/2014 Influenza, injectable, quadrivalent, preservative free, cttapreaf12/22/2022 Influenza, recombinant, quadrivalent, injectable, preservative free07/04/2021, 07/04/2021Influenza, seasonal, injectable, preservative free, 6 moonths & older 10/24/2024,05/12/2016,05/31/2015MMR12/02/1995Moderna 12 YR UP Vaccine BiValent Msrssnv4306/05/2022Moderna SARS-CoV-2 Uucrtaxbosj52/22/7159CAO3102/19/1995, 1994,1994Pfizer SARS-CoV-2 Oeaaeycyqmz78/21/2021Unspecified Sars-Cov-2 Vnuyjkstvfj31/21/2021,12/26/2020,12/04/2020 Family History Medical HistoryRelationNameCommentsArthritisFatherWilliam SmolterCancerMaternal GrandfatherEdward KaniarzCancerMaternal GrandmotherSherry KaniarzArthritisMother Meagan PolkDepressionMotherDeborah PolkDiabetesMotherDeborah PolkHeart disease MotherDeborah PolkHyperlipidemiaMotherDeborah PolkHypertensionMotherDeborah [place] Irritable bowel syndromeMotherDeborah PolkKidney diseaseMotherDeborah [place] DiabetesPaternal GrandfatherJames SmolterCancerPaternal GrandmotherMary Matthews RelationNameStatusCommentsFatherWilliam SmolterMaternal GrandfatherEdward KaniarzMaternal GrandmotherSherry KaniarzMotherDeborah PolkPaternal Grandfather Kunal SmolterPaternal GrandmotherMary [place] Social History Tobacco UseTypesPacks/DayYears UsedDateSmoking Tobacco: NeverSmokeless Tobacco: NeverAlcohol UseStandard Drinks/WeekCommentsNot Currently0 (1 standard drink = 0.6 oz pure alcohol)Drank occasionally before, stopped recentlyHumiliation, Afraid, Rape, and Kick questionnaireAnswerDate RecordedWithin the last year, have you been afraid of your partner or ex-partner?No04/20/2023Within the last year, have you been humiliated or emotionally abused in other ways by your partner or ex-partner?No04/20/2023Within the last year, have you been kicked, hit, slapped, or otherwise physically hurt by your partner or ex-partner?No 04/20/2023Within the last year, have you been raped or forced to have any kind of sexual activity by your partner or ex-partner?No04/20/2023Overall Financial Resource Strain (CARDIA)AnswerDate RecordedHow hard is it for you to pay for the very basics like food, housing, medical care, and heating?Not hard at all 04/20/2023HQ-2AnswerDate RecordedPatient Health Questionnaire-2 Score6 11/24/2024UT Safety & EnvironmentAnswerDate RecordedWithin the last year, have you been afraid of your partner or ex-partner?No04/20/2023Within the last year, have you been humiliated or emotionally abused in other ways by your partner or ex-partner?No04/20/2023Within the last year, have you been kicked, hit, slapped, or otherwise physically hurt by your partner or ex-partner?No04/20/2023Within the last year, have you been raped or forced to have any kind of sexual activity by your partner or ex-partner?No04/20/2023In the past year have you been physically or sexually abused?Unrecognized value04/20/2023TransportationAnswer Date RecordedIn the past 12 months, has lack of transportation kept you from medical appointments or from getting medications?No04/20/2023Lack of Transportation (Non-Medical)Not on file04/20/2023Housing Stability Vital Sign AnswerDate RecordedUnable to Pay for Housing in the Last YearNot on file 04/20/2023Number of Places Lived in the Last YearNot on file04/20/2023In the last 12 months, was there a time when you did not have a steady place to sleep or slept in ashelter (including now)?No04/20/2023Hunger Vital SignAnswerDate RecordedWithin the past 12 months, you worried that your food would run out before you got the money to buymore.Never true04/20/2023Ran Out of Food in the Last YearNot on file3CommentsUnknownSex and Gender Information ValueDate RecordedSex Assigned at BirthNot on fileLegal VcyScvqqo91/29/2023 10:15 PM EDTGender IdentityNot on fileSexual OrientationNot on file Last Filed Vital Signs Vital SignReadingTime TakenCommentsBlood Tcvlkoau143/8303 2:53 PM EDT Ujckn56738/13/2025 2:53 PM ZXXZvhkmkdyeni30.6 ??C (97.9 ??F)02/09/2023 10:24 PM EDTRespiratory Uhst368002/10/2023 2:36 AM EDTOxygen Yxiblprmku06%11/24/2024 2:53 PM EDTInhaled Oxygen Concentration--Msgccd578 kg (366 lb)11/24/2024 2:53 PM EDT Jbmguo095.6 cm (5' 4 )11/24/2024 2:53 PM EDTBody Mass Index62.8211/24/2024 2:53 PM EDT Plan of Treatment Health MaintenanceDue DateLast DoneCommentsDiabetes: Hemoglobin A1C1994IPV Vaccines (4 of 4 - 4-dose series), 1994, 1994 Diabetes: Retinopathy Dpjjvgevq29/01/2004Varicella Vaccines (1 of 2 - 13+ 2-dose series)2007Diabetes: Urine Protein Evddgtfpk47/01/2013Pap Smear2015 Adult Xblcrvp3708/14/2016HPV Vaccines (1 - 3-dose SCDM series)2021ervical Cancer Gqopbyahj59/01/2024HPV/Gcamwq544COVID-19 Vaccine ( season)/, 06/05/2022, 07/04/2021, Additional history exists Influenza Vaccine (#1)502/06/2025, 06/05/2022, 07/04/2021, Additional history existsDepression Ffwrajbpf70Zoster Vaccines (1 of 2) 2044HIB DmgpqzvlLuyjoltac12/20/1996, 02/19/1995, 1994, Additional history existsMeningococcal B VaccineAged OutNo longer eligible based on patient's age to complete this topicMeningococcal VaccineAged OutNo longer eligible based on patient's age to complete this topicPneumococcal Vaccine: Pediatrics (0 to 5 Years) and At-Risk Patients (6 to 64 Years)Aged OutNo longer eligible based on patient's age to complete this topicRotavirus VaccinesAged Out No longer eligible based on patient's age to complete this topic Insurance Care Teams Team MemberRelationshipSpecialtyStart DateEnd Date Scott Dalton MD [address] [place] [address] PCP - General02/09/23
--- OUTSIDE RECORDS SUMMARY | 2025-08-11 08:04 | XMS_ITS | Clinical Summary ---
Author Organization [facility] Address [id number] [address] [place] [address] Care Team Providers Care Order Filler Name Role Phone Yanni Mauricio KENYA-CASE PACKER AND SEALER Primary Care Provider Allergies Active AllergyReactionsCriticalityNoted DateCommentsHouse Dust Mite02/09/2023 Other reaction(s): itching, cough, rhinitis Medications * This document contains information received from the source organization and may not represent a complete record from that organization. MedicationSigDispense QuantityRefillsLast FilledStart DateEnd DateStatus metFORMIN (GLUCOPHAGE) 500 mg tablet Take 2 tablets (1,000 mg total) by mouth daily with breakfast.Active albuterol (PROVENTIL HFA;VENTOLIN HFA) 90 mcg/actuation inhaler Inhale 2 puffs every 6 (six) hours as needed for wheezing.Active fexofenadine (KOMAL) 180 mg tablet Take 1 tablet (180 mg total) by mouth in the morning.Active acetaminophen (TYLENOL EXTRA STRENGTH) 500 mg tablet Take 2 tablets (1,000 mg total) by mouth every 6 (six) hours as needed for pain. 30 tablet 02/08/2023ctive ondansetron ODT (ZOFRAN ODT) 4 mg disintegrating tablet Dissolve 1 tablet (4 mg total) on tongue every 8 (eight) hours as needed for nausea for up to 10 doses. 10 tablet 05/13/2024ctive cholecalciferol 1,000 units tablet Take 1 tablet (1,000 Units total) by mouth in the morning.Active propranolol XL (INNOPRAN XL) 120 MG 24 hr capsule Take 1 capsule (120 mg total) by mouth in the morning.Active hydroxychloroquine (PLAQUENIL) 200 mg tablet Take 2 tablets (400 mg total) by mouth in the morning.5Active buPROPion XL (WELLBUTRIN XL) 150 mg 24 hr tablet Indications:anxiety with depressionTake 1 tablet (150 mg total) by mouth in the morning. Indications: anxiousness associated with depression. 90 tablet 5Active busPIRone (BUSPAR) 30 mg tablet Indications:generalized anxiety disorderIndications: repeated episodes of anxiety. Take 1 tablet by mouth in the morning. Take 1 tablet by mouth in the evening. 180 tablet 5Active FLUoxetine (PROzac) 40 mg capsule Indications:Mild episode of recurrent major depressive disorder,Generalized anxiety disorderTake 2 capsules (80 mg total) by mouth in the morning. 180 capsule 5Active sucralfate (CARAFATE) 1 gram tablet Take 1 tablet (1 g total) by mouth in the morning and 1 tablet (1 g total) before bedtime.Active atogepant (QULIPTA) 60 mg tablet Indications:Migraine without aura and without status migrainosus, not intractableTake 60 mg by mouth in the morning. 90 tablet 5Active pantoprazole (PROTONIX) 40 mg EC tablet Indications:gastroesophageal reflux diseaseTake 1 tablet (40 mg total) by mouth in the morning. Indications: gastroesophageal reflux disease. 90 tablet 5Active cyanocobalamin 1000 MCG tablet TAKE 1 TABLET BY MOUTH IN THE MORNING 90 tablet 5Active fremanezumab-vfrm (AJOVY AUTOINJECTOR) 225 mg/1.5 mL Indications:Migraine without aura and without status migrainosus, not intractableInject 1.5 mL (225 mg total) under the skin every 28 days. 1.5 mL 5Active ubrogepant (UBRELVY) 100 mg tablet Indications:Migraine without aura and without status migrainosus, not intractableTake 100 mg by mouth as needed (migraines). 15 tablet 5Active liraglutide (VICTOZA) 0.6 mg/0.1 mL (18 mg/3 mL) pen injector Indications:Type 2 diabetes mellitus with hyperosmolarity without coma, without long-term current use of insulin ([facility]),Elevated blood pressure reading,PCOS (polycystic ovarian syndrome)Inject 0.1 mL (0.6 mg total) under the skin in the morning. 3 mL 5Active ALPRAZolam (XANAX) 0.5 mg tablet Indications:Generalized anxiety disorderTake 1 tablet (0.5 mg total) by mouth daily as needed for anxiety. 30 tablet 5Active methylphenidate HCl (CONCERTA) 18 mg CR tablet Indications:Attention deficit hyperactivity disorder (ADHD), predominantly inattentive typeTake 1 tablet (18 mg total) by mouth daily. Max Daily Amount: 18 mg 30 tablet 5Active medroxyPROGESTERone (DEPO-PROVERA) 150 mg/mL syringe Indications:Encounter for initial prescription of injectable contraceptiveINJECT 1ML INTO THE APPROPRIATE MUSCLE ONCE FOR1 DOSE 1 mL 5Active Active Problems ProblemNoted DateDiagnosed DateBilateral carpal tunnel bacfjzyw80/12/2025PCOS (polycystic ovarian syndrome)01/23/2025Menorrhagia with irregular cycle 01/23/2025ttention deficit hyperactivity disorder (ADHD), predominantly inattentive type08/05/2024Gastroesophageal reflux disease without esophagitis 02/09/2023Mild episode of recurrent major depressive bippefpl13/17/2023 Generalized anxiety uhhshokt61/17/2023neumonia due to COVID-19 virus09/21/2020 Morbid tqqwjwv7809/21/2020 Encounters * This document contains information received from the source organization and may not represent a complete record from that organization. DateTypeDepartmentCare AsywShlmvawjsej90/10/7603Wrrahx55/13/2025Refill [facility] [address] [place] [address] [place] [address] Yanni Mauricio APRN-CNP Encounter for initial prescription of injectable vdudethpkvvqp28/16/2025Orders Only [facility] [address] [place] [address] Florina Fernandez APRN-CNP from Last 3 Months Immunizations ImmunizationAdministration DatesNext DueInfluenza, Injectable, quadrivalent (PF) 09/21/2020 Family History Medical HistoryRelationNameCommentsAnxiety disorderCousinBipolar disorderCousin DepressionCousinDepressionMaternal Aunt 1Lorrie SlaneEarly deathMaternal Aunt 1 Adilia SlaneEarly deathMaternal Aunt 2Sarah KaniarzFibromyalgiaMaternal Aunt 3 Rheum arthritisMaternal Aunt 3Early deathMaternal GrandfatherEdward Kaniarz Pancreatic cancerMaternal GrandfatherEdward KaniarzBrain cancerMaternal GrandmotherSherry KaniarzEarly deathMaternal GrandmotherSherry KaniarzLung cancerMaternal GrandmotherSherry KaniarzClotting disorderMaternal UncleDavid KaniarzDepressionMaternal UncleDavid KaniarzAnxiety disorderMotherDeborah [place] ArthritisMotherDeborah PolkClotting disorderMotherDeborah PolkDepressionMother Meagan PolkDiabetesMotherDeborah PolkDiabetes type IIMotherDeborah PolkHeart diseaseMotherDeborah PolkHeart failureMotherDeborah PolkHypertensionMother Meagan PolkKidney diseaseMotherDeborah PolkRheum arthritisMotherDeborah [place] DiabetesPaternal GrandfatherJames SmolterDiabetes type IIPaternal Grandfather Kunal SmolterBrain cancerPaternal GrandmotherRelationNameStatusCommentsCousin Maternal Aunt 1Lorrie SlaneAliveMaternal Aunt 2Sarah KaniarzAliveMaternal Aunt 3 AliveMaternal GrandfatherEdward KaniarzAliveMaternal GrandmotherSherry Kaniarz AliveMaternal UncleDavid KaniarzAliveMotherDeborah PolkAlivePaternal Grandfather Kunal SmolterAlivePaternal Grandmother Social History Tobacco UseTypesPacks/DayYears UsedDateSmoking Tobacco: NeverSmokeless Tobacco: Never Tobacco Cessation:Counseling Given: Not Answered Alcohol UseStandard Drinks/WeekCommentsNot Currently0 (1 standard drink = 0.6 oz pure alcohol)Overall Financial Resource Strain (CARDIA)AnswerDate RecordedHow hard is it for you to pay for the very basics like food, housing, medical care, and heating?Somewhat hard01/23/2025PHQ-2AnswerDate RecordedTotal Score0 04/27/2025PRAPARE - TransportationAnswerDate RecordedIn the past 12 months, has lack of transportation kept you from medical appointments or from getting medications?Yes01/23/2025In the past 12 months, has lack of transportation kept you from meetings, work, or from getting things needed for daily living?Yes 01/23/2025Housing InstabilityAnswerDate RecordedAre you worried or concerned that in the next two months you may not have stable housing that you own, rent or stay in as a part of a household?No01/23/2025hildcareAnswerDate RecordedDo problems getting child center assistant make it difficult for you to work or study?No 09/21/2020mploymentAnswerDate RecordedDo you need help finding a local career center and/or a training program?No09/21/2020Hunger ScreeningAnswerDate Recorded Within the past 12 months we worried whether our food would run out before we got money to buy more.Never True04/27/2025Within the past 12 months the food we bought just didn't last and we didn't have money to get more.Never True 04/27/2025Purpose - LifeAnswerDate RecordedPurpose and direction in lifeUnknown 09/24/2020ducationAnswerDate RecordedWhat is the highest level of school you have completed or the highest degree you have received?High school graduate 3CommentsNoSex and Gender InformationValueDate RecordedSex Assigned at IsrthDwecan29/12/2025 10:36 AM ESTLegal YoqHqloio98/06/2015 11:50 AM EDTGender PurfkpcsWqolvb81/12/2025 10:36 AM ESTSexual OrientationNot on file OccupationIndustryJob Start DateJob End DateHome Health AidNot on fileNot on fileNot on file Last Filed Vital Signs Vital SignReadingTime TakenCommentsBlood Tzrgnwdo794/7404/27/2025 3:00 PM EDT Geekb28419/14/2025 3:00 PM CLAXmjfyegbecr39.1 ??C (98.7 ??F)04/27/2025 3:00 PM EDTRespiratory Vhko695402/04/2025 10:05 PM EDTOxygen Sojyezgrxn55%04/27/2025 3:00 PM EDTInhaled Oxygen Concentration--Lpgnlp792 kg (381 lb 6.4 oz)04/27/2025 3:00 PM LHXGrfegn431.6 cm (5' 4.02 )04/27/2025 3:00 PM EDTBody Mass Index65.43 04/27/2025 3:00 PM EDT Plan of Treatment DateTypeDepartmentCare Team (Latest Contact Info)Wwzlnknqsdo77/03/2025 10:00 AM ESTHospital Encounter [facility] [address] [place] [id number] Bhaskar Vance MD [address] [id number] 08/16/2025 10:00 AM EST - 08/16/2025 10:[address] [facility] [address] [place] [address] Bhaskar Vance MD [address] [id number] ESOPHAGOGASTRODUODENOSCOPY DIAGNOSTIC [20281 (CPT??)]NamePriorityAssociated DiagnosesDate/TimeESOPHAGOGASTRODUODENOSCOPY DIAGNOSTIC Epigastric pain R10.13 Heartburn R12 08/16/2025 10:00 AM ESTHealth MaintenanceDue DateLast DoneCommentsDiabetic Ophthalmology Exam1994DTaP,Tdap and Td Vaccines (5 - Tdap)2005 10/10/1997, 02/19/1995, 1994, Additional history existsDiabetic Foot Exam 2012Pap Smear2015COVID-19 Vaccine ( - season)2025 06/05/2022, 07/04/2021, 12/26/2020, Additional history existsInfluenza Vaccine 502/06/2025, 06/05/2022, 07/04/2021, Additional history existsAdult BMI Follow Up [place] BMI Tkgfndmet83 Depression Wlzbveqlh25Tobacco Spersinsy54 Goals GoalPatient Goal TypeAssociated ProblemsRecent ProgressPatient-Stated?Author Autogenerated Goal Care PlanAutogenerated ProblemNoRodrigsudheer, Nesha, SPARERIBS TRIMMER [employer] Not on file Additional Health Concerns Active ProblemsNoted DateDiagnosed DateAutogenerated Mrqqcaa3207/19/2025 Insurance * Guarantor: Karla Nicolas TypeRelation to PatientDate of BirthPhone Billing AddressPersonal/GqcbneDcbl1995 [address] [address] [place] [address] Advance Directives * Full Code (Latest Code Status on File) Date ActivatedDate InactivatedComments09/21/2020 9:29 PM09/26/2020 5:08 PM Care Teams Team MemberRelationshipSpecialtyStart DateEnd Date Yanni Mauricio APRN-RITESH [address] [place] [address], [place] [address] PCP - GeneralFamily Medicine01/23/25
--- OUTSIDE RECORDS SUMMARY | 2025-08-11 08:04 | XMS_ITS | Encounter Summary ---
Author Organization [facility] tem Address [facility] – [id number] [address] [place] [address] Care Team Providers Care Operations Management Trainee Name Role Phone Yanni Mauricio KENYA-MINE GEOLOGIST Primary Care Provider Encounter Details DateTypeDepartmentCare Team (Latest Contact Info)Yqmadtbtpda74/25/2025Telephone Formerly [facility] Department of [address] [address] Nesha Guerrero CNA Social History Tobacco UseTypesPacks/DayYears UsedDateSmoking Tobacco: NeverSmokeless Tobacco: NeverAlcohol UseStandard Drinks/WeekCommentsNot Currently0 (1 standard drink = 0.6 oz pure alcohol)Overall Financial Resource Strain (CARDIA)AnswerDate RecordedHow hard is it for you to pay for the very basics like food, housing, medical care, and heating?Somewhat hard01/23/2025PHQ-2AnswerDate RecordedTotal Bgssf705PRAPARE - TransportationAnswerDate RecordedIn the past 12 months, has lack of transportation kept you from medical appointments or from getting medications?Yes01/23/2025In the past 12 months, has lack of transportation kept you from meetings, work, or from getting things needed for daily living?Yes01/23/2025Housing InstabilityAnswerDate RecordedAre you worried or concerned that in the next two months you may not have stable housing that you own, rent or stay in as a part of a household?No01/23/2025hildcareAnswer Date RecordedDo problems getting child nutrition assistant make it difficult for you to work or study?No09/21/2020mploymentAnswerDate RecordedDo you need help finding a local career center and/or a training program?No09/21/2020Hunger ScreeningAnswerDate RecordedWithin the past 12 months we worried whether our food would run out before we got money to buy more.Never True04/27/2025Within the past 12 months the food we bought just didn't last and we didn't have money to get more.Never True04/27/2025Purpose - LifeAnswerDate RecordedPurpose and direction in life Gvqgdtw5509/24/2020ducationAnswerDate RecordedWhat is the highest level of school you have completed or the highest degree you have received?High school graduate 3CommentsNoSex and Gender InformationValueDate RecordedSex Assigned at StrtiKlwktw32/12/2025 10:36 AM ESTLegal RcwKcpylh10/06/2015 11:50 AM EDTGender AaxvzkmhQyvajt80/12/2025 10:36 AM ESTSexual OrientationNot on file OccupationIndustryJob Start DateJob End DateHome Health AidNot on fileNot on fileNot on filedocumented as of this encounter Miscellaneous Notes * Telephone Encounter - Nesha Guerrero CNA - 03/08/2025 10:49 AM EDT 03/08/25 EGD & CLN by MB at [facility]/, [place], ASA 3 w /PAT. On [...] done.. Mailed out egd instructions today. BR * Telephone Encounter - Jessie Scott - 03/08/2025 10:49 AM EDT Rescheduled EGD at [facility] d/t patient asking to be on cx list. 10:00am. Covered location and arrival time with patients mother. Cx PAT, unable to schedule on before procedure. documented in this encounter Plan of Treatment DateTypeDepartmentCare Team (Latest Contact Info)Drhjmhrahxr34/03/2025 10:00 AM ESTHospital Encounter [facility] [address] [place] [address] Bhaskar Vance MD [address] [address] 08/16/2025 10:00 AM EST - 08/16/2025 10:30 AM ESTSurgery [facility] [address] [place] [address] Bhaskar Vance MD [address] [address] ESOPHAGOGASTRODUODENOSCOPY DIAGNOSTIC [70310 (CPT??)]NamePriorityAssociated DiagnosesDate/TimeESOPHAGOGASTRODUODENOSCOPY DIAGNOSTIC Epigastric pain R10.13 Heartburn R12 08/16/2025 10:00 AM ESTdocumented as of this encounter Goals GoalPatient Goal TypeAssociated ProblemsRecent ProgressPatient-Stated?Author Autogenerated Goal Care PlanAutogenerated ProblemNoRodNesha valle, CNAdocumented as of this encounter Visit Diagnoses Not on filedocumented in this encounter Additional Health Concerns Active ProblemsNoted DateDiagnosed DateAutogenerated Peggvzw39/05/2025Assessment Noted TimePHQ-9 Depression Total Score: 1:58 PM EDTdocumented as of this encounter Care Teams Team MemberRelationshipSpecialtyStart DateEnd Date Yanni Mauricio, KENYA-MINE GEOLOGIST [address] [place] [address], [place] [address] PCP - GeneralFamily Medicine01/23/25documented as of this encounter
--- OUTSIDE RECORDS SUMMARY | 2025-08-11 08:04 | XMS_ITS | Clinical Summary ---
Author Organization [facility] Address [address] [place] [address] Care Team Providers Care [employer] Ground Operations Supervisor Name Role Phone Florina Fernandez MD Primary Care Provider [phone] Social History Tobacco UseTypesPacks/DayYears UsedDateSmoking Tobacco: Never Assessed CommentsUnknownSex and Gender InformationValueDate RecordedSex Assigned at Not on fileLegal EpwDkerid25/15/2023 7:05 PM EDTGender IdentityNot on fileSexual OrientationNot on file Last Filed Vital Signs Vital SignReadingTime TakenCommentsBlood Dioekwlp706/9509/ 12:00 PM EDT Pulse--Temperature--Respiratory Rate--Oxygen Saturation--Inhaled Oxygen Concentration--Toxceg848 kg (381 lb)10/30/2022 12:00 PM OGSUoscal273.6 cm (5' 4 )10/30/2022 12:00 PM ESTBody Mass Index65. 12:00 PM EST Plan of Treatment Not on file Insurance Care Teams Team MemberRelationshipSpecialtyStart DateEnd Date Florina Fernandez MD PCP - Generalhavioral Qivhpq74/8/24
[2025-08-11] MEDS: MORPHINE SULFATE 4 MG/ML VIAL IV (08:16)
[2025-08-11] MEDS: PIPERACILLIN SODIUM/TAZOBACTAM 3.375 GM in 0.9 % SODIUM CHLORIDE 50 ML IV (09:14)
== END 2025-08-11 12:07 | disposition short-term general hospital (02) ==
PROVIDERS: Emergency Provider Emergency Medicine; PCP Nurse Practitioner Family
DX: K81.0 Acute cholecystitis (principal)
CPT/HCPCS: 36415; 76705; 80048; 80076; 82150; 83690; 85025; 96365; 96366; 96375; 99285; J2270; J2543; J3490